=== PATIENT | male | born 1980 | race Caucasian/White ===

== ENCOUNTER 2018-09-07 20:14 | Inpatient (IN) ==
[2018-09-07 21:02] LABS: BASO# 0.05 X1000 (0.0-0.2); BASO% 0.2 % (0.0-0.8); EOS# 0.09 X1000 (0.0-0.7); EOS% 0.4 % (0.0-10.0); HEMATOCRIT 41.7 % (42.0-52.0); HEMOGLOBIN 14.1 g/dL (14.0-18.0); IMM GRAN# 0.12 X1000 (0.0-0.04); IMM GRAN% 0.6 % (0.0-0.5); LYMPH# 2.65 X1000 (1.2-3.4); LYMPH% 12.7 % (20.5-51.1); MCH 26.2 PG (27-31); MCHC 33.8 g/dL (33-37); MCV 77.5 FL (81-99); MONO# 1.42 X1000 (0.11-0.59); MONO% 6.8 % (1.7-9.3); MPV 10.5 FL (7.4-10.4); NEUT# 16.56 X1000 (1.4-6.5); NEUT% 79.3 % (42.2-75.2); PLT 568 X1000 (130-400); RBC 5.38 XMIL (4.7-6.1); RDW 12.5 % (11.5-14.5); WBC 20.89 X1000 (4.8-10.8)
[2018-09-07] MEDS ORDERED: PHENERGAN IV ONE (21:13)
[2018-09-07] MEDS ORDERED: MORPHINE IV ONE (21:13)
[2018-09-07] MEDS ORDERED: SODIUM CHLORIDE 0.9% INJ ONE (21:13)
[2018-09-07] MEDS ORDERED: ROCEPHIN 1 GM in NS 50 ML IV ONE (21:27)
[2018-09-07] MEDS ORDERED: VANCOMYCIN 1 GM/NS 1 GM/250 ML IVPB IV ONE (21:27)
[2018-09-07 21:29] LABS: AGAP 18; ALB/GLOB RATIO 1.3; ALBUMIN 5.1 g/dL (3.5-5.0); ALKALINE PHOSPHATASE 147 U/L (32-122); BUN 16 mg/dL (8-22); CALCIUM 10.2 mg/dL (8.8-10.2); CHLORIDE 88 mmol/L (98-107); COSMO 282; CREATININE 1.1 mg/dL (0.7-1.2); ESTIMATED GFR > 60; GLUCOSE 434 mg/dL (70-104); GOT 11 U/L (10-34); GPT 11 U/L (10-44); POTASSIUM 4.2 mmol/L (3.5-5.1); SODIUM 131 mmol/L (136-145); TCO2 25 mmol/L (25-35); TOTAL PROTEIN 8.9 g/dL (6.3-8.3)
[2018-09-07] MEDS ORDERED: CLINDAMYCIN 600 MG/NS 600 MG/50 ML IVPB IV ONE (21:34)
[2018-09-07] MEDS ORDERED: HUMULIN R SUBQ ONE (21:35)
[2018-09-07] MEDS: NS 1,000 ML IV ONE ×2 (21:40→23:00)
[2018-09-07 22:08] LABS: ALLEN TEST YES; BE 1.4 mmoll (-3.0-3.0); BLOOD TYPE ARTERIAL; METHB 0.6 % (0.0-1.5); MODALITY ROOM AIR; O2(CT) 17.3 mL/dL (15.0-23.0); PCO2(98.6) 34 mmHg (35-45); PO2(98.6) 74 mmHg (60-100); SAMPLE BLOOD; SAO2 99.8 % (95.0-100.0); THB 12.8 g/dL (11.5-17.4); pH(98.6) 7.47 (7.35-7.45)
[2018-09-07] MEDS ORDERED: CATAPRES PO PRN (23:19)
[2018-09-07] MEDS ORDERED: VANCOMYCIN IV PER PHARMACY MISC SCH (23:30)
[2018-09-08] MEDS ORDERED: DILAUDID IV ONE ×2 (00:37→03:15)
--- NOTE | 2018-09-08 00:52 | PROVIDER DOCUMENTATION ---
This chart was entered by Mark Castaneda Scribe, acting as scribe for Wilmer Lai MD. HPI-General Adult - General Chief Complaint: Post Op Complaint Stated Complaint: POST SURGEY BLEED Time Seen by Provider: 09/07/18 21:02 Source: patient Allergies/Adverse Reactions: Patient Allergies Allergy/AdvReac Type Severity Reaction Status Date / Time Sulfa (Sulfonamide Allergy HIVES Verified 09/07/18 20:35 Antibiotics) vancomycin AdvReac RASH Verified 09/07/18 20:35 Home Medications: Home Medication List Medication Instructions Recorded Confirmed Last Taken Type Tizanidine HCl [Zanaflex] 1 tab PO TID 08/04/16 08/11/18 06/21/18 20:00 History Clonidine [Catapres] 0.1 mg PO BID PRN 02/11/17 08/11/18 06/22/18 17:32 History Insulin Aspart [Novolog] 1 dose SQ TID 01/17/18 08/11/18 06/21/18 History Iron Carbonyl/Ascorbic Acid 1 each PO BID tablet 01/26/18 08/11/18 06/21/18 20: 00 Rx [Icar-C] Sodium Bicarbonate 650 mg PO BID #60 tablet 01/26/18 08/11/18 06/21/18 20:00 Rx Mirtazapine [Remeron] 30 mg PO HS 02/18/18 08/11/18 06/21/18 20:00 History Amlodipine [Norvasc] 5 mg PO BID tablet 06/27/18 08/11/18 Unknown Rx Bisacodyl [Dulcolax] 10 mg [place] BID supp 06/27/18 08/11/18 Unknown Rx Lorazepam [Ativan] 1 mg PO TID PRN PRN tablet 06/27/18 08/11/18 Unknown Rx Pantoprazole [Protonix] 40 mg PO DIRECTED #91 tab 06/27/18 08/11/18 Unknown Rx Sucralfate [Carafate Liquid] 1 gm PO Q6HR #120 udc 06/27/18 08/11/18 Unknown Rx CephALEXIN [Keflex] 500 mg PO Q8H #30 cap 08/18/18 Unknown Rx Hydrocodone/APAP 10 mg/325 mg 1 tab PO Q6H PRN PRN #30 tab 08/18/18 Unknown Rx [[place]-10] Insulin Glargine [Basaglar] 60 unit SUBQ BID insuln.pen 08/18/18 Unknown Rx Lisinopril 30 mg PO DAILY #0 08/18/18 08/11/18 06/22/18 08:00 Rx Polyethylene Glycol 3350 [Miralax] 17 gm PO DAILY #10 powd.pack 08/18/18 Unknown Rx - History of Present Illness -Gen Adult Nature of Presenting Problems: Pt is a 37 y/o M presents to the ED with post op bleeding from a left 2nd toe amputation done [address] Wright. Pt reports his big toe was amputated on the left foot in December 2017, Location of Pain/Injury: reports: lower extremity (left foot) Pain Radiation: reports: no radiation Quality of Pain: reports: aching Severity: reports: moderate Onset/Duration: reports: gradual Timing: reports: getting worse Context/Activities at Onset: reports: none Modifying Factors: improves with: nothing Associated Symptoms: denies: cough, diaphoresis, sinus congestion/drainage, shortness of breath Similar Symptoms Previously?: No Recently seen or treated by another doctor?: No Review of Systems - Adult - REVIEW OF SYSTEMS - ADULT Constitutional: reports: fever. denies: chills Eyes: reports: no symptoms reported Ears, Nose, Mouth & Throat: reports: no symptoms reported Cardiovascular: reports: no symptoms reported Respiratory: denies: cough, shortness of breath, wheezing Gastrointestinal: denies: abdominal pain, nausea, vomiting Genitourinary: reports: no symptoms reported Musculoskeletal: reports: bone pain (left foot). denies: back pain, neck pain Integumentary: reports: no symptoms reported Neurological: denies: dizziness/vertigo, headache/migraines Psychiatric: reports: no symptoms reported Endocrine: reports: no symptoms reported Hematologic/Lymphatic: reports: no symptoms reported Allergic/Immunologic: reports: no symptoms reported All Other Systems: Reviewed and Negative Past History - Adult - PAST MEDICAL HISTORY-ADULT Review of Records: reports: Old Records Reviewed, Nursing Assessment Review, Medications Reviewed Major Childhood Illnesses: reports: denies history Cardiovascular: reports: HTN Respiratory: reports: denies history Gastrointestinal: reports: denies history Obstetrical/Gynecological: reports: denies history Genitourinary: reports: kidney disease, other (Sofi history of) Musculoskeletal: reports: denies history Neurological: reports: denies history Endocrine/Immune: reports: Diabetes Other Conditions: reports: MRSA - PRIOR SURGERIES/PROCEDURES Surgical/Procedure History: reports: reviewed, not pertinent, other - IMMUNIZATION STATUS Childhood Immunizations: See Nurse Assessment Flu Vaccine: See Nurse Assessment - FAMILY HISTORY Family History: reviewed, not pertinent - SOCIAL HISTORY Smoking: non-smoker Living Situation: family Physical Exam-General - PHYSICAL EXAM-ADULT Initial Vital Signs Reviewed: Yes - CONSTITUTIONAL General Appearance: appears well, alert, no apparent distress - EYES Eyes: PERRL/EOMI, pink conjunctivae - HEAD, EARS, NOSE, MOUTH & THROAT HENMT: moist mucous membranes, normal ENT inspection, pharynx normal - NECK Neck: non-tender, full range of motion, supple, normal inspection - RESPIRATORY Respiratory: lungs clear, normal breath sounds, no pleuratic chest pain, no respiratory distress, no accessory muscle use - CARDIOVASCULAR Cardiovascular: normal peripheral pulses, tachycardia - GASTROINTESTINAL (ABDOMEN) Abdominal Exam: non tender, soft - MUSCULOSKELETAL Back Exam: normal inspection, no CVA tenderness, no vertebral tenderness Extremity: erythema (left foot with no streaking up the foot). negative: normal inspection (left foot tissue around amputation is red swollen pus draining) - SKIN Integumentary: normal color, normal turgor, warm/dry - NEUROLOGIC Neurologic: grossly normal, no motor/sensory deficits - PSYCHIATRIC Psych/Mental Status: normal mood/affect, normal thought content, normal thought process, oriented x 3 Progress - PLAN OF CARE/RESULTS Progress/Plan/Lab Results: Vital Signs - 8 hr 09/07/18 20:22 Temperature 99.7 F H Pulse Rate 135 H Respiratory Rate 19 O2 Sat by Pulse Oximetry 100 Laboratory Results - last 24 hr 09/07/18 20:39 WBC 20.89 H RBC 5.38 Hgb 14.1 Hct 41.7 L MCV 77.5 L MCH 26.2 L MCHC 33.8 RDW Std Deviation 12.5 Plt Count 568 H MPV 10.5 H Immature Gran % (Auto) 0.6 H Neut % (Auto) 79.3 H Lymph % (Auto) 12.7 L [place] % (Auto) 6.8 Eos % (Auto) 0.4 Baso % (Auto) 0.2 Immature Gran # (Auto) 0.12 H Neut # (Auto) 16.56 H Lymph # (Auto) 2.65 [place] # (Auto) 1.42 H Eos # (Auto) 0.09 Baso # (Auto) 0.05 Orders Category Date Time Status CBC WITH ELECTRONIC DIFF [HEME] Stat Lab 09/07/18 20:39 Completed CMP [COMPREHENSIVE METABOLIC PANEL] [CHEM] Stat Lab 09/07/18 20:39 Received A/P infected surgical site from 2nd toe amputation 3 weeks ago. Started broad coverage AB, pain control, insulin and IV fluids. Will admit for Surgical evaluation in am by Dr Reese Result Diagrams: 09/07/18 20:39 09/07/18 20:39 - CONSULTS/PCP/HOSPITALIST Notification #1 *Consult/PCP/Hospitalist*: Dr Barnes - Ortho Time Discussed: 21:30 Reason/Comments: wrong group, need general surgery #2 Consult: Dr Monsivais Time Discussed: 21:32 Reason/Comments: Review of HPI Consult Disposition: other (admit under hospitalist and he will follow and see in the morning) #3 Consult: Hospitalist- Dr Rush Time Discussed: 21:56 Reason/Comments: Admission Consult Disposition: Admit (accepts) Departure - Departure Date of Disposition Decision: 09/07/18 Time of Disposition Decision: 21:58 DIAGNOSIS: Diabetic foot infection Disposition: ADMITTED INPATIENT 09 Certified Medical Emergency: Emergent Condition: Poor - Critical Care Note This patient required my direct & personal management of CC.: No Attestation - Physician/ AMY Attestation Patient care was provided by Advanced Practice Provider:: No The physician spent face to face time with patient:: Yes Advanced Practice Provider documentation review:: Supervising physician onsite and consulted in the evaluation and care of this patient. The physician did have a face to face encounter with the patient. This chart was documented by the indicated scribe, (Mark Castaneda Scribe) and accurately reflects the services I performed and decisions made by me, Wilmer Lai MD, as attested by the provider's signature.
[2018-09-08] MEDS ORDERED: VANCOMYCIN 2,000 MG in NS 500 ML IV SCH (02:00)
[2018-09-08] MEDS ORDERED: NORCO-7.5 PO PRN (02:00)
[2018-09-08] MEDS: LOVENOX SUBQ SCH ×2 (03:00→23:44)
[2018-09-08] MEDS: ZOSYN 3.375 GM in NS 50 ML IV SCH ×2 (03:00→10:01)
[2018-09-08] MEDS: ATIVAN PO PRN (03:00)
[2018-09-08] MEDS ORDERED: ZOFRAN IV PRN (03:13)
[2018-09-08] MEDS: CUBICIN 600 MG in NS 100 ML IV SCH (04:00)
[2018-09-08 04:58] LABS: BASO# 0.04 X1000 (0.0-0.2); BASO% 0.2 % (0.0-0.8); EOS# 0.06 X1000 (0.0-0.7); EOS% 0.3 % (0.0-10.0); HEMATOCRIT 35.7 % (42.0-52.0); HEMOGLOBIN 12.3 g/dL (14.0-18.0); IMM GRAN# 0.06 X1000 (0.0-0.04); IMM GRAN% 0.3 % (0.0-0.5); LYMPH# 2.13 X1000 (1.2-3.4); LYMPH% 11.8 % (20.5-51.1); MCH 27.2 PG (27-31); MCHC 34.5 g/dL (33-37); MONO% 8.3 % (1.7-9.3); MPV 10.3 FL (7.4-10.4); NEUT# 14.19 X1000 (1.4-6.5); NEUT% 79.1 % (42.2-75.2); PLT 407 X1000 (130-400); RBC 4.52 XMIL (4.7-6.1); RDW 12.5 % (11.5-14.5); WBC 17.98 X1000 (4.8-10.8)
[2018-09-08] MEDS: NS 1,000 ML IV SCH ×4 (05:00→23:44)
[2018-09-08 05:01] LABS: INR 0.95; PROTIME 13.5 Seconds (11.0-16.0)
[2018-09-08 05:11] LABS: AGAP 13; ALB/GLOB RATIO 1.3; ALBUMIN 4.3 g/dL (3.5-5.0); ALKALINE PHOSPHATASE 108 U/L (32-122); BUN 16 mg/dL (8-22); CALCIUM 9.4 mg/dL (8.8-10.2); CHLORIDE 97 mmol/L (98-107); COSMO 280; CREATININE 0.9 mg/dL (0.7-1.2); ESTIMATED GFR > 60; GLUCOSE 251 mg/dL (70-104); GOT 9 U/L (10-34); GPT 9 U/L (10-44); POTASSIUM 3.9 mmol/L (3.5-5.1); SODIUM 135 mmol/L (136-145); TCO2 25 mmol/L (25-35); TOTAL BILIRUBIN 0.49 mg/dL (0.20-1.00); TOTAL PROTEIN 7.7 g/dL (6.3-8.3)
[2018-09-08 05:13] LABS: HEMOGLOBIN A1C 10.4 % (4.8-6.0)
[2018-09-08] MEDS ORDERED: OFIRMEV 1000 MG/ISOTONIC SOLN 1,000 MG/100 ML BOTTLE IV ONE (05:39)
[2018-09-08] MEDS ORDERED: HUMULIN R SUBQ SCH (07:00)
--- NOTE | 2018-09-08 08:00 | HISTORY AND PHYSICAL ---
PRIMARY CARE PHYSICIAN: Dr. Cj Anaya. HISTORY OF PRESENTING COMPLAINT: Pain to left foot and bleeding. HISTORY OF PRESENTING COMPLAINT: Mr. Castillo is a 37-year-old male with extensive history of uncontrolled diabetes mellitus, has had multiple admissions to the hospital because of diabetes- related acute complications. He was last discharged from this hospital on 08/18 after 7 days hospitalization. On that occasion he did have surgery to his left foot, transmetatarsal amputation of the first toe and the distal ray amputation of the left second toe was done by Dr. Wright because of osteomyelitis. Postoperatively, he seems to be doing fine, but he was home today. He said he has been feeling chilly and low-grade fever and since this afternoon he has been bleeding from the site, so he called the office of the surgeon and he was advised to come to the emergency department where he was evaluated and we were consulted for admission and for management. PAST MEDICAL HISTORY: 1. Diabetes mellitus. 2. Nicotine dependence. 3. Perceived medical noncompliance. 4. Methicillin-resistant Staphylococcus aureus (MRSA) before. 5. HTN Home Meds: Reviewed PAST SURGICAL HISTORY: Multiple amputations to the left foot. The last was amputation of the first and second toes on 08/13/2018. ALLERGIES: Sulfa. FAMILY HISTORY: Both grandparents were positive for coronary artery disease. Father in 2016 related to sepsis. SOCIAL HISTORY: The patient used to be a smoker and drinker, but he said he stopped all these about 20 years ago. REVIEW OF SYSTEM: A 14-point review of system conducted with Mr. Castillo is unremarkable except what we have in the HPI. PHYSICAL EXAMINATION: VITAL SIGNS: Blood pressure is currently not charted. Pulse is 135, respiration is 19. Patient is saturating 100%, temperature is 99.7 degrees. GENERAL: Mr. Castillo is a 37-year-old gentleman. He is in bed. He is not in any cardiopulmonary distress. HEENT: Mucosa is pink and moist. Anicteric. Acyanotic. NECK: Neck is supple. CHEST: Good air entry bilateral. There was no crepitations, no rhonchi. CARDIOVASCULAR: Regular rate and rhythm. No murmurs, no rubs, no gallops. GI: Abdomen is soft, is nontender. Bowel sounds are present. There is no hepatosplenomegaly. EMBLEM CUTTER: Patient is awake, alert, oriented. Executive functions are intact. Motor 5/5 in all extremities. No sensation deficit. Cranial nerves 2-12 have been grossly examined and they are unremarkable. MUSCULOSKELETAL: The right lower extremity is erythematous distally. It is warm to touch and very tender. There are sutures in place for the recent amputation surgeries. There is blood everywhere. LABORATORY DATA: WBC is 20.87, hemoglobin is 14.1, platelet count of 568,000. Chemistry is also reviewed. Sodium is 131, potassium is 4.8, chloride is 85, bicarbonate is 25, gap is 18, glucose is 438. ASSESSMENT: Mr. Castillo is a 37-year-old gentleman who had a transmetatarsal amputation of the first toe and a distal ray amputation of the second toe done by Dr. Wright on 08/13/2018, uncontrolled diabetes and medical noncompliance. He came into the emergency department because of sepsis syndrome with possible infection to the left foot. 1. Sepsis secondary to skin and soft tissue infection of the left lower extremity. There could be underlying bone infection as well. Patient recently treated for osteomyelitis 2. Left diabetic foot cultures have been done and we will start the patient on broad-spectrum antibiotics. The patient has had history of MRSA infections to that toe, so we will cover him with an MRSA drug. 3. Severe uncontrolled diabetes mellitus. We will continue sliding scale and other insulin regimen. 4. Hyponatremia likely due to the hyperglycemia. Hopefully that will auto correct once the glucose improves. So, in general, we are going to admit Mr. Castillo in medical floor, adequately hydrate him, start him on broad-spectrum antibiotics, control his glucose, and consult Dr. Wright tomorrow to evaluate the foot. cc: Clint Rush MD [facility]
--- NOTE | 2018-09-08 08:24 | GENERAL SURGERY CONSULTATION ---
DATE: 09/08/2018 REQUESTING PHYSICIAN: Dr. Rush. REASON FOR CONSULTATION: Foot infection. HISTORY OF PRESENT ILLNESS: A 37-year-old male, well known to me with poorly-controlled diabetes, who I had previously, almost 3 weeks ago, done further amputations of his toes. He failed to follow up with me in the office on one appointment last week, but now is presenting with fevers and pain and drainage from his wound. He has had persistent pain in his foot for some time. He came in and was found to be tachycardic with a temperature of 102.7, concerning for sepsis. He had some drainage coming from his left foot from the amputation site. He still has the sutures in place. Again, he was supposed to see me the beginning of this week to have the sutures removed. He is being admitted by the Hospitalist for sepsis. PAST MEDICAL HISTORY: Includes: 1. Previous left foot cellulitis. 2. Uncontrolled diabetes. 3. Hypertension. 4. History of sepsis. 5. Nicotine dependence. 6. Poor medical compliance. PAST SURGICAL HISTORY: Includes previous toe amputations and abdominal wound debridement. SOCIAL HISTORY: Drinks socially. FAMILY HISTORY: Positive for coronary artery disease. ALLERGIES: Sulfa and vancomycin. MEDICATIONS: MAR reviewed. REVIEW OF SYSTEMS: A full 10-point review of systems was obtained and negative, except as specified in HPI. PHYSICAL EXAMINATION: Vital Signs: The patient's current temperature is 102.7 degrees, pulse 118, blood pressure 147/87. General: male, looks stated age. HEENT: Normocephalic, atraumatic. Pupils equal, round, and reactive to light. Mucous membranes moist. Oropharynx benign. Neck: Supple. Trachea midline. Cardiovascular: Regular rate and rhythm. Lungs: Grossly clear. Abdomen: Soft, nontender, nondistended. Extremities: Left foot, there is some cellulitis on both the plantar aspect and the dorsal aspect of the foot. He still has the sutures intact. There is some drainage that I can express. It looks more serous to me, but there is some cloudiness with it. It is tender to palpation. I do not feel any crepitus. Vascular: All extremities are perfused. Neurologic: Grossly intact. Skin: Wound as noted above. LABORATORY DATA: White blood cell count this morning 17, hematocrit 35, platelet count 407,000. Glucose this morning 251, it was 434. A1c is 10.4. ASSESSMENT AND PLAN: A 37-year-old with poorly-controlled diabetes, now with a wound to his amputation site. Wound to his amputation site. At this time, there is a good chance this could be causing his sepsis-like picture. He has been started on antibiotics, and I had a discussion with the patient that he may require transmetatarsal amputation given the extent of the cellulitis. He wants to try to hold off on that for right now, and will try aggressive antibiotic therapy. If it does not improve, the patient may need transmetatarsal amputation with a wound VAC. This was discussed with the patient. Will continue to follow with you. cc: Claudio Wright MD
[2018-09-08] MEDS ORDERED: BASAGLAR SUBQ SCH (09:00)
[2018-09-08] MEDS ORDERED: DILAUDID IV PRN (09:55)
[2018-09-08] MEDS: MIRALAX PO SCH (10:02)
[2018-09-08] MEDS: NORVASC PO SCH ×2 (10:02→20:03)
[2018-09-08] MEDS: DULCOLAX PR SCH ×2 (10:02→20:05)
[2018-09-08] MEDS: PRINIVIL PO SCH (10:02)
[2018-09-08] MEDS: PROTONIX PO SCH (10:02)
[2018-09-08] MEDS: ICAR-C PO SCH ×2 (10:02→20:03)
[2018-09-08] MEDS: SODIUM BICARBONATE PO SCH ×2 (10:03→20:03)
--- NOTE | 2018-09-08 11:32 | Diag Imaging Result Doc PS360 ---
EXAM: FOOT 2 VIEWS LEFT 09/08/2018 HISTORY: osteomyelitis TECHNIQUE: Left foot two views COMMENT: Since the previous study of 01/18/2018 there has been amputation of the great toe at the level of the mid first metatarsal and the second toe at the base of the proximal phalanx. There is no definite evidence of erosion or periosteal reactions is chest osteomyelitis. There are some bony fragments present around the medial forefoot which are probably the remnants of sesamoid bones from the first metatarsal. There is soft tissue swelling. There are vascular calcifications. IMPRESSION: No definite evidence of active osteomyelitis. Electronically signed by Alexx Chapman 09/08/2018 11:30 AM
[2018-09-08] MEDS: BASAGLAR SUBQ SCH ×2 (11:57→20:04)
[2018-09-08] MEDS ORDERED: TYLENOL PO PRN (12:00)
[2018-09-08] MEDS: MAXIPIME 2 GM in NS 100 ML IV SCH ×2 (12:06→23:44)
[2018-09-08] MEDS: OFIRMEV 1000 MG/ISOTONIC SOLN 1,000 MG/100 ML BOTTLE IV SCH ×3 (13:33→23:44)
[2018-09-08] MEDS: DILAUDID IV PRN ×4 (13:35→23:45)
[2018-09-08] MEDS: SODIUM CHLORIDE 0.9% INJ PRN (13:35)
[2018-09-08] MEDS: PHENERGAN IV PRN ×2 (13:35→20:02)
[2018-09-08] MEDS: HUMALOG SUBQ SCH ×2 (17:34→20:05)
--- NOTE | 2018-09-08 20:56 | INFECTIOUS DISEASE PROGRESS NO ---
DATE: 09/08/2018 PRESENT ILLNESS: The patient has an infection of his left foot. MEDICATIONS: The patient was on Keflex at home. PHYSICAL EXAMINATION: Vital Signs: Temperature is 102.2 degrees, pulse 64, respirations 14, blood pressure 140/70. General: This is a somewhat ill-appearing, young male. He is in no acute distress. Head, eyes, ears, nose, and throat: He can hear my spoken words and see near objects. He does not have any white coating on his tongue. Neck: No stiffness. Lungs: Clear to auscultation. Cardiovascular: Regular heart rate. Abdomen: Soft and nontender. Extremities: The patient's left foot was erythematous, swollen, and had a serous drainage coming from it. Neurologic: The patient is awake. He can move his extremities. There is no tremor. LABORATORY AND X-RAY: CBC shows a white count of 17,980, hemoglobin 12.3, and platelet count 407,000. Creatinine 0.9. GFR is greater than 60. Liver function studies are normal. Blood and left foot cultures are pending. ASSESSMENT AND PLAN: The patient has an infected left foot. I agree with treating the patient with daptomycin. I have substituted cefepime for Zosyn. Also, I have ordered an x-ray of the patient's left foot. COMORBIDITIES: His main one is diabetes mellitus. He does not control his diabetes well at all. cc: Richard Mirza MD
[2018-09-08 21:11] LABS: URINE SOURCE CLEAN CATCH
[2018-09-08 21:13] LABS: BILIRUBIN URINE NEGATIVE (NEGATIVE); BLOOD URINE NEGATIVE (NEGATIVE); CLARITY CLEAR (CLEAR); COLOR YELLOW; GLUCOSE URINE >=1000 mg/dL (NEGATIVE); KETONE URINE NEGATIVE (NEGATIVE); LEUKOCYTES URINE NEGATIVE (NEGATIVE); NITRITE URINE NEGATIVE (NEGATIVE); PROTEIN URINE NEGATIVE (NEGATIVE); UROBILINOGEN URINE 0.2 EU/dL (0.2-1.0)
[2018-09-08 21:21] LABS: URINE BACTERIA NEGATIVE /HFP; URINE CAST NONE SEEN /LPF; URINE CRYSTAL NONE SEEN /HPF; URINE EPITHELIAL CELLS <10 /HPF (<10); URINE RBC <10 /HPF (<10); URINE WBC <10 /HPF (<10); URINE YEAST NONE SEEN /HPF
[2018-09-09] MEDS: REMERON PO SCH ×2 (00:03→20:20)
--- NOTE | 2018-09-09 00:24 | PROGRESS NOTE ---
DATE: 09/08/2018 SUBJECTIVE: The patient reports he is still hurting in the left foot. The patient has requested to increase the doses of pain medication while he is here. OBJECTIVE: Vital Signs: Temperature 99.8 degrees, heart rate 111, respiratory rate 18, blood pressure 128/71, O2 saturation 97% on room air. General Examination: This is a 37-year-old male lying in bed, in no acute distress. HEENT: Head is normocephalic and atraumatic. Neck: No JVD noted. No carotid bruits. No lymphadenopathy. Cardiovascular: S1, S2 heard. No murmurs, gallops, or rubs. Regular rate and rhythm. Respiratory: Clear bilaterally to auscultation. No work of breathing or using accessory muscles. Abdomen: Soft, nontender to palpation. Bowel sounds present. No organomegaly. Extremities: Right lower extremity is erythematous distally, warm to touch, and painful to palpation. There are sutures in place from recent amputation surgeries. Neurological: The patient is alert and oriented x3. Moves 4 extremities. LABORATORY DATA: White cell count 17.98, hemoglobin 12.3, hematocrit 35.7, platelets 407,000. BMP shows glucose 251 with sodium 135. ASSESSMENT AND PLAN: 1. Sepsis secondary to skin and soft tissue infection to the left lower extremity. At this point, the patient has been evaluated by Dr. Wright and thinks that he needs to have a transmetatarsal amputation in order to resolve this infection. The patient is somewhat adamant to proceed with surgery now, so he prefers to wait a few days to see if antibiotics can help. As per patient, Dr. Wright is tentatively planning to do surgery on Wednesday. We will see how this patient does. Currently, he is on daptomycin and cefepime. Dr. Mirza from Infectious Disease has been consulted. We will follow recommendations. 2. Uncontrolled diabetes mellitus type 2. I think this chronic infection is playing an important role in the diabetes control. The hemoglobin A1c is very high at 10.5. At this point, we have increased the dose of Lantus and will see how this patient does. 3. Hyponatremia secondary to severe hyperglycemia, now is getting better. We will continue to monitor BMP. DISPOSITION: We will continue to monitor this patient closely. We will continue with IV antibiotics. We appreciate input from ID and General Surgery. cc: Braydon Fu MD
[2018-09-09] MEDS: CUBICIN 600 MG in NS 100 ML IV SCH (02:49)
[2018-09-09] MEDS: DILAUDID IV PRN ×7 (02:50→23:47)
[2018-09-09] MEDS: LOVENOX SUBQ SCH (05:17)
[2018-09-09] MEDS: PHENERGAN IV PRN ×3 (06:00→20:15)
[2018-09-09] MEDS: OFIRMEV 1000 MG/ISOTONIC SOLN 1,000 MG/100 ML BOTTLE IV SCH ×2 (06:02→12:28)
[2018-09-09 06:56] LABS: BASO# 0.04 X1000 (0.0-0.2); BASO% 0.4 % (0.0-0.8); EOS# 0.33 X1000 (0.0-0.7); HEMATOCRIT 31.2 % (42.0-52.0); HEMOGLOBIN 10.4 g/dL (14.0-18.0); IMM GRAN# 0.05 X1000 (0.0-0.04); IMM GRAN% 0.4 % (0.0-0.5); LYMPH# 2.37 X1000 (1.2-3.4); LYMPH% 21.3 % (20.5-51.1); MCH 26.9 PG (27-31); MCHC 33.3 g/dL (33-37); MCV 80.8 FL (81-99); MONO# 1.12 X1000 (0.11-0.59); MONO% 10.1 % (1.7-9.3); MPV 10.1 FL (7.4-10.4); NEUT# 7.22 X1000 (1.4-6.5); NEUT% 64.8 % (42.2-75.2); PLT 337 X1000 (130-400); RBC 3.86 XMIL (4.7-6.1); RDW 12.4 % (11.5-14.5); WBC 11.13 X1000 (4.8-10.8)
[2018-09-09 07:16] LABS: AGAP 13; BUN 14 mg/dL (8-22); CALCIUM 8.8 mg/dL (8.8-10.2); CHLORIDE 98 mmol/L (98-107); COSMO 271; CREATININE 0.8 mg/dL (0.7-1.2); ESTIMATED GFR > 60; GLUCOSE 102 mg/dL (70-104); POTASSIUM 3.4 mmol/L (3.5-5.1); SODIUM 135 mmol/L (136-145); TCO2 24 mmol/L (25-35)
[2018-09-09] MEDS ORDERED: INSULIN PEN NEEDLES ONE (07:45)
[2018-09-09] MEDS: HUMALOG SUBQ SCH ×4 (08:00→21:30)
[2018-09-09] MEDS: PRINIVIL PO SCH (08:54)
[2018-09-09] MEDS: ICAR-C PO SCH ×2 (08:54→20:13)
[2018-09-09] MEDS: MIRALAX PO SCH (08:55)
[2018-09-09] MEDS: NORVASC PO SCH ×2 (08:55→20:15)
[2018-09-09] MEDS: PROTONIX PO SCH (08:55)
[2018-09-09] MEDS: SODIUM BICARBONATE PO SCH ×2 (08:55→20:17)
[2018-09-09] MEDS: DULCOLAX PR SCH ×2 (09:00→20:14)
[2018-09-09] MEDS: BASAGLAR SUBQ SCH ×2 (09:06→22:51)
--- NOTE | 2018-09-09 09:43 | GENERAL SURGERY PROGRESS NOTE ---
DATE: 09/09/2018 SUBJECTIVE: The patient seems to be doing okay. OBJECTIVE: Vital Signs: The patient is currently with temperature 99.1 degrees, pulse 96, blood pressure 122/76. General: No acute distress. Cardiovascular: Regular rate and rhythm. Lungs: Grossly clear. Abdomen: Soft, nontender, nondistended. Extremities: Amputation site to the left lower extremity appears to be about the same. There is some cellulitis of the plantar and dorsal aspect. No active drainage, but there is some bogginess. LABORATORY DATA: None this morning as of yet. DIAGNOSTIC STUDIES: X-ray from yesterday did not show osteomyelitis. ASSESSMENT AND PLAN: A 37-year-old with infection at previous amputation sites. At this time, we will continue aggressive intravenous antibiotics. The patient wants to hold off on any kind of surgical intervention. If no improvement, may need to consider a transmetatarsal amputation, but at this point, will continue with patient's wishes and continue intravenous antibiotics. Dr. Null will follow while I am gone this weekend. cc: Claudio Wright MD
--- NOTE | 2018-09-09 10:20 | INFECTIOUS DISEASE PROGRESS NO ---
DATE: 09/09/2018 PRESENT ILLNESS: The patient has infection of his left foot. MEDICATIONS: The patient is in day 1 of his treatment of the left foot infection with daptomycin and cefepime. PHYSICAL EXAMINATION: Vital Signs: Temperature is 98.3 degrees. Pulse 95. Respirations 20. Blood pressure is 107/59. General: This is an obese, somewhat ill-appearing, young male. He is in no acute distress. Head/Eyes/Ears/Nose/Throat: He can hear my spoken words and see near objects. He does not have any white coating on his tongue. Neck: No meningismus. Lungs: Clear to auscultation. Cardiovascular: Regular heart rate. Abdomen: Soft and nontender. Extremities: The patient's left foot has a large dressing around it. The dressing is intact. Neurologic: The patient is alert. He can move his extremities. There is no tremor. LABORATORY AND X-RAY DATA: X-ray of the left foot showed no evidence of osteomyelitis. A culture from the foot is growing a gram-positive coccus and a gram-negative sharonda. Creatinine is 0.8. GFR is greater than 60. CBC shows a white count of 11,130, hemoglobin 10.4, and platelet count 337,000. ASSESSMENT AND PLAN: The patient has an infected left foot. I have ordered an MRI of the left foot to see if there is an osteomyelitis that did not appear on the plain x-ray of the foot. My plan is to continue with daptomycin and cefepime, pending further results. COMORBIDITIES: The patient is a diabetic and he does not control his diabetes well. cc: Richard Mirza MD
[2018-09-09] MEDS: MAXIPIME 2 GM in NS 100 ML IV SCH ×2 (12:28→22:52)
[2018-09-09] MEDS: SODIUM CHLORIDE 0.9% INJ PRN ×2 (12:29→20:16)
--- NOTE | 2018-09-09 14:46 | Diag Imaging Result Doc PS360 ---
EXAM: MRI LOW EXT JT W/WO CON-LEFT INDICATION: L foot osteomyelitis TECHNIQUE: COMPARISON: 08/11/2018 FINDINGS: During the interval, there has been amputation of the second toe at the MTP joint and there has been resection of a majority of the first metatarsal with the proximal shaft. Before this, there had already been prior amputation of the great toe. Postcontrast T1 images reveal a fluid collection at the stump of the first metatarsal with a thin tract that extends to the surface of the skin suggesting abscess or phlegmon. Please correlate clinically. There is mild marrow edema at the stump of the first metatarsal that may be postsurgical. However, there is also mild focal marrow edema at the head of the second metatarsal. This probably represents osteomyelitis. The remaining osseous marrow signal is essentially unremarkable. IMPRESSION: 1.Osteomyelitis involving the head of the second metatarsal. 2.Mild marrow edema involving the stump of the resected first metatarsal. This may be postsurgical. A component of osteomyelitis here is also possible, however. 3.Fluid collection at the surgical bed near the distal stump of the first metatarsal with a thin tract extending to the skin surface that is worrisome for inflammatory phlegmon or abscess. Electronically signed by Louis Barrientos 09/09/2018 2:43 PM
--- NOTE | 2018-09-09 14:53 | PROGRESS NOTE ---
DATE: 09/09/2018 SUBJECTIVE: The patient reports still hurting in the left foot even though we have increased the dose of Dilaudid. Denies any other complaints. OBJECTIVE: Vital Signs: Temperature 98.8 degrees, heart rate 107, respiratory rate 20, blood pressure 129/74, O2 saturation 100% on room air. General: This is a 37-year-old male, lying in bed, in no acute distress. HEENT: Head is normocephalic, atraumatic. Cardiovascular: S1, S2 heard. No murmurs, gallops, or rubs. Regular rate and rhythm. Respiratory: Clear bilaterally to auscultation. No work of breathing or using accessory muscles. Abdomen: Soft, nontender to palpation. Bowel sounds present. No organomegaly. Extremities: Right extremity covered by dressing. Neurological: Patient alert and oriented x3. Moves 4 extremities. LABORATORY DATA: White cell count is 11.13, hemoglobin 10.4, hematocrit 31.2, platelets 337. Blood sugar is 102 with 3.4 potassium. ASSESSMENT AND PLAN: 1. Sepsis secondary to skin and soft tissue infection of the left lower foot. Dr. Wright from General Surgery and Dr. Mirza from Infectious Disease are following this patient as well. Dr. Mirza has decided to do an MRI of the left lower extremity to rule out any osteomyelitis. We will see what that exam shows and we will go from there. In the meantime, we will continue with antibiotics. In this case, he is on daptomycin and cefepime. We will follow recommendations. 2. Uncontrolled diabetes mellitus type 2. I think this chronic infection continues to play an important role in diabetes control. Will continue with the same doses of Lantus. We have increased the dose of Lantus yesterday. We will continue to monitor BMP. 3. Hyponatremia secondary to severe hyperglycemia that is normal. We will continue to monitor. cc: Braydon Fu MD
[2018-09-10] MEDS: OFIRMEV 1000 MG/ISOTONIC SOLN 1,000 MG/100 ML BOTTLE IV SCH ×6 (00:16→23:55)
[2018-09-10] MEDS: ATIVAN PO PRN ×2 (01:39→06:02)
[2018-09-10] MEDS: PHENERGAN IV PRN ×3 (03:14→16:57)
[2018-09-10] MEDS: SODIUM CHLORIDE 0.9% INJ PRN ×2 (03:14→16:57)
[2018-09-10] MEDS: DILAUDID IV PRN ×6 (03:27→20:59)
[2018-09-10] MEDS: CUBICIN 600 MG in NS 100 ML IV SCH (03:27)
[2018-09-10 06:05] LABS: BASO# 0.04 X1000 (0.0-0.2); BASO% 0.4 % (0.0-0.8); EOS# 0.39 X1000 (0.0-0.7); EOS% 3.9 % (0.0-10.0); HEMATOCRIT 37.3 % (42.0-52.0); HEMOGLOBIN 12.6 g/dL (14.0-18.0); IMM GRAN# 0.05 X1000 (0.0-0.04); IMM GRAN% 0.5 % (0.0-0.5); LYMPH# 3.25 X1000 (1.2-3.4); LYMPH% 32.7 % (20.5-51.1); MCH 27.2 PG (27-31); MCHC 33.8 g/dL (33-37); MCV 80.4 FL (81-99); MONO# 1.08 X1000 (0.11-0.59); MONO% 10.9 % (1.7-9.3); NEUT# 5.12 X1000 (1.4-6.5); NEUT% 51.6 % (42.2-75.2); PLT 131 X1000 (130-400); RBC 4.64 XMIL (4.7-6.1); RDW 12.7 % (11.5-14.5); WBC 9.93 X1000 (4.8-10.8)
[2018-09-10 06:46] LABS: AGAP 17; BUN 11 mg/dL (8-22); CALCIUM 9.2 mg/dL (8.8-10.2); CHLORIDE 100 mmol/L (98-107); COSMO 272; CREATININE 0.8 mg/dL (0.7-1.2); ESTIMATED GFR > 60; GLUCOSE 74 mg/dL (70-104); SODIUM 137 mmol/L (136-145); TCO2 20 mmol/L (25-35)
[2018-09-10] MEDS: HUMALOG SUBQ SCH ×4 (06:55→21:02)
[2018-09-10] MEDS: LOVENOX SUBQ SCH (06:56)
[2018-09-10] MEDS: NORVASC PO SCH ×2 (08:56→21:00)
[2018-09-10] MEDS: PRINIVIL PO SCH (08:56)
[2018-09-10] MEDS: ICAR-C PO SCH ×2 (08:57→21:00)
[2018-09-10] MEDS: MIRALAX PO SCH (08:57)
[2018-09-10] MEDS: BASAGLAR SUBQ SCH ×2 (08:57→21:01)
[2018-09-10] MEDS: SODIUM BICARBONATE PO SCH ×2 (08:57→21:01)
[2018-09-10] MEDS: PROTONIX PO SCH (09:00)
[2018-09-10] MEDS: MAXIPIME 2 GM in NS 100 ML IV SCH ×2 (11:43→23:51)
[2018-09-10] MEDS: DULCOLAX PR SCH ×2 (12:57→21:03)
--- NOTE | 2018-09-10 16:45 | PROGRESS NOTE ---
DATE: 09/10/2018 SUBJECTIVE: Patient reports still hurting in the left foot, denies no other complaints. OBJECTIVE: Vital Signs: Temperature 98.2 degrees, heart rate 91, respiratory 20, blood pressure 110/70, O2 saturation 91% on room air. General: This is a 37-year-old male lying in bed in no acute distress. Cardiovascular: S1, S2 heard. No murmurs, gallops, or rubs. Regular rate and rhythm. Respiratory: Clear bilaterally to auscultation. No work of breathing or using accessory muscle . Abdomen: Soft, nontender palpation, bowel sounds present no organomegaly. Extremities: Right extremity covered with dressing with some serosanguineous secretion. Neurological: Patient alert, oriented x3, move 4 extremities. LABORATORY DATA: White cell count is 9.93, hemoglobin 12.6, hematocrit 37.3, platelets 131,000 with normal BMP, blood sugars yesterday and today has been 127. ASSESSMENT/PLAN: 1. Sepsis secondary to skin and soft tissue infection of the left lower extremity, clinically patient reports feeling the same hurting the same but his white cell count is finally back to normal. Dr. Wright from General Surgery and also Dr. Mirza are following this patient. At this time an MRI of the left lower extremity has been done which basically showed osteomyelitis of the 2nd metatarsal, at this point I think the approach for the problem of this patient will be surgical, I will wait for Dr. Wright on Wednesday to see what he is planning. In any case patient is receiving daptomycin and cefepime as per Dr. Mirza recommendation, will continue with same management. 2. Uncontrolled diabetes mellitus type 2. After we have increased the doses of Lantus too twice daily the doses actually is 70 units twice daily patient blood sugars are better controlled. Will continue with same management. 3. Hyponatremia secondary to severe hyperglycemia resolved. 4. Disposition. At this point we are planning to keep this patient over the weekend and on Wednesday that is holiday with the same antibiotic therapy and on Wednesday will talk with Dr. Wright to see if surgical approach is warranted or not. cc: Braydon Fu MD
[2018-09-10] MEDS: REMERON PO SCH (21:00)
[2018-09-11] MEDS: ATIVAN PO PRN (00:01)
[2018-09-11] MEDS ORDERED: NS 500 ML IV ONE ×2 (00:35→20:15)
[2018-09-11] MEDS: DILAUDID IV PRN ×8 (00:58→23:44)
[2018-09-11] MEDS: OFIRMEV 1000 MG/ISOTONIC SOLN 1,000 MG/100 ML BOTTLE IV SCH ×4 (01:06→17:36)
[2018-09-11] MEDS ORDERED: NS 500 ML ONE (01:12)
[2018-09-11] MEDS: CUBICIN 600 MG in NS 100 ML IV SCH (03:27)
[2018-09-11] MEDS: PHENERGAN IV PRN ×2 (04:37→14:24)
[2018-09-11] MEDS: LOVENOX SUBQ SCH (06:25)
[2018-09-11] MEDS: HUMALOG SUBQ SCH ×4 (06:30→20:29)
[2018-09-11 07:21] LABS: AGAP 12; BUN 10 mg/dL (8-22); CALCIUM 9.1 mg/dL (8.8-10.2); CHLORIDE 101 mmol/L (98-107); COSMO 276; CREATININE 0.7 mg/dL (0.7-1.2); ESTIMATED GFR > 60; GLUCOSE 94 mg/dL (70-104); POTASSIUM 3.7 mmol/L (3.5-5.1); SODIUM 139 mmol/L (136-145); TCO2 26 mmol/L (25-35)
[2018-09-11 07:37] LABS: BASO# 0.04 X1000 (0.0-0.2); BASO% 0.6 % (0.0-0.8); EOS# 0.35 X1000 (0.0-0.7); EOS% 4.8 % (0.0-10.0); HEMATOCRIT 32.5 % (42.0-52.0); HEMOGLOBIN 10.8 g/dL (14.0-18.0); IMM GRAN# 0.02 X1000 (0.0-0.04); IMM GRAN% 0.3 % (0.0-0.5); LYMPH# 2.22 X1000 (1.2-3.4); LYMPH% 30.6 % (20.5-51.1); MCHC 33.2 g/dL (33-37); MCV 81.3 FL (81-99); MONO# 0.67 X1000 (0.11-0.59); MONO% 9.2 % (1.7-9.3); MPV 9.9 FL (7.4-10.4); NEUT# 3.96 X1000 (1.4-6.5); NEUT% 54.5 % (42.2-75.2); PLT 423 X1000 (130-400); RDW 12.5 % (11.5-14.5); WBC 7.26 X1000 (4.8-10.8)
[2018-09-11] MEDS: NORVASC PO SCH ×2 (08:10→20:27)
[2018-09-11] MEDS: SODIUM BICARBONATE PO SCH ×2 (08:10→20:27)
[2018-09-11] MEDS: PRINIVIL PO SCH (08:10)
[2018-09-11] MEDS: ICAR-C PO SCH ×2 (08:10→20:26)
[2018-09-11] MEDS: PROTONIX PO SCH (08:10)
[2018-09-11] MEDS: MIRALAX PO SCH (08:13)
[2018-09-11] MEDS: BASAGLAR SUBQ SCH ×2 (08:14→20:39)
[2018-09-11] MEDS: DULCOLAX PR SCH ×2 (09:00→20:30)
--- NOTE | 2018-09-11 10:32 | PROGRESS NOTE ---
DATE: 09/11/2018 SUBJECTIVE: Mr. Miguel A Castillo is a 37-year-old, white male with a left diabetic foot, receiving IV antibiotic and dressing changes. White blood cell count is normal. Hematocrit is 32%. IV antibiotics continue. OBJECTIVE: Vital signs: Heart rate is 90, blood pressure 135/78, afebrile, O2 saturation 99%. Left foot: Has been dressed. cc: Silva Null MD
[2018-09-11] MEDS: MAXIPIME 2 GM in NS 100 ML IV SCH ×2 (11:12→23:35)
[2018-09-11] MEDS ORDERED: ATIVAN PO PRN (12:47)
--- NOTE | 2018-09-11 13:06 | PROGRESS NOTE ---
DATE: 09/11/2018 SUBJECTIVE: The patient reports not being able to sleep. That has been going on since admission. OBJECTIVE: Vital Signs: Temperature 98.9 degrees, heart rate 90, respiratory rate 18, blood pressure 135/78, O2 saturation 99% on room air. General Examination: This is a 37-year-old male, lying in bed, in no acute distress. HEENT: Head is normocephalic, atraumatic. Cardiovascular: S1, S2 heard. No murmurs, gallops, or rubs. Regular rate and rhythm. Respiratory: Clear bilaterally to auscultation. No work of breathing or using accessory muscles. Abdomen: Soft. Nontender to palpation. Bowel sounds present. No organomegaly. Extremities: No clubbing, cyanosis, or edema. Peripheral pulses present in both legs. Neurological: Patient is alert and oriented x3. Moves 4 extremities. LABORATORY DATA: White cell count 7.26, hemoglobin 10.8, hematocrit 32.5, platelets 423,000. Normal BMP with blood sugar of 164. ASSESSMENT AND PLAN: 1. Sepsis secondary to skin and soft tissue infection of the left lower extremity. Clinically, this patient is still complaining of pain in that extremity. No fever or chills. White cell count is back to normal. So, at this point we will continue with IV antibiotics. Dr. Wright will be back tomorrow and will decide about surgery or not. Dr. Mirza has ordered an MRI of the left lower extremity which confirmed osteomyelitis of the 2nd metatarsal, so we will see what both specialists have to say. At this point, we will continue with same management. 2. Uncontrolled diabetes mellitus type 2. After we have increased the dose of Lantus which is 70 units twice daily, the patient continues to improve. We will continue with the same dose of medication. 3. Hyponatremia secondary to severe hyperglycemia. Resolved. 4. Disposition. At this point, we will continue with same management. We will see Wednesday what Dr. Wright has to say regarding this infection. cc: Braydon Fu MD
[2018-09-11] MEDS ORDERED: ZANAFLEX PO PRN (13:07)
[2018-09-11] MEDS: SODIUM CHLORIDE 0.9% INJ PRN (14:24)
[2018-09-11] MEDS: REMERON PO SCH (20:27)
[2018-09-11] MEDS ORDERED: INSULIN PEN NEEDLES ONE (23:09)
[2018-09-12] MEDS: AMBIEN PO SCH ×2 (00:58→22:20)
[2018-09-12] MEDS: OFIRMEV 1000 MG/ISOTONIC SOLN 1,000 MG/100 ML BOTTLE IV SCH ×4 (00:58→17:27)
[2018-09-12] MEDS: SODIUM CHLORIDE 0.9% INJ PRN (02:55)
[2018-09-12] MEDS: PHENERGAN IV PRN ×2 (02:55→17:28)
[2018-09-12] MEDS: CUBICIN 600 MG in NS 100 ML IV SCH (02:55)
[2018-09-12] MEDS: DILAUDID IV PRN ×4 (02:56→21:09)
--- NOTE | 2018-09-12 06:09 | GENERAL SURGERY PROGRESS NOTE ---
DATE: 09/12/2018 SUBJECTIVE: Patient seems to be doing okay. Reviewed MRI and notes from the weekend. There is concern of osteomyelitis of the 2nd metatarsal head and may be a draining abscess. OBJECTIVE: Vital Signs: Patient is currently afebrile. His vital signs are stable. General: No acute distress. Cardiovascular: Regular rate and rhythm. Lungs: Grossly clear. Abdomen: Soft, nontender, nondistended. Extremities: Left foot dressing was removed. No active drainage, erythema has improved. ASSESSMENT AND PLAN: A 37-year-old with poorly-controlled diabetes, now with infection of previous amputation site. Infection and amputation site at this time given the MRI findings, we will plan on surgical intervention tomorrow. We will try to get it scheduled for tomorrow afternoon or today. Discussed with patient the risks, benefits, and alternatives. He is aware we will probably likely place a wound VAC given the findings on MRI with an abscess. cc: Claudio Wright MD MTDHarsha
[2018-09-12] MEDS: LOVENOX SUBQ SCH (06:10)
[2018-09-12] MEDS: HUMALOG SUBQ SCH ×4 (06:35→22:17)
[2018-09-12 06:49] LABS: BASO# 0.05 X1000 (0.0-0.2); BASO% 0.7 % (0.0-0.8); EOS# 0.36 X1000 (0.0-0.7); EOS% 4.9 % (0.0-10.0); HEMATOCRIT 33.6 % (42.0-52.0); HEMOGLOBIN 10.9 g/dL (14.0-18.0); IMM GRAN# 0.03 X1000 (0.0-0.04); IMM GRAN% 0.4 % (0.0-0.5); LYMPH# 2.38 X1000 (1.2-3.4); LYMPH% 32.3 % (20.5-51.1); MCH 26.1 PG (27-31); MCHC 32.4 g/dL (33-37); MCV 80.6 FL (81-99); MONO# 0.73 X1000 (0.11-0.59); MONO% 9.9 % (1.7-9.3); MPV 9.4 FL (7.4-10.4); NEUT# 3.82 X1000 (1.4-6.5); NEUT% 51.8 % (42.2-75.2); PLT 476 X1000 (130-400); RBC 4.17 XMIL (4.7-6.1); RDW 12.5 % (11.5-14.5); WBC 7.37 X1000 (4.8-10.8)
[2018-09-12 07:03] LABS: AGAP 13; BUN 10 mg/dL (8-22); CALCIUM 9.2 mg/dL (8.8-10.2); CHLORIDE 96 mmol/L (98-107); CK TOTAL 51 U/L (24-204); COSMO 272; CREATININE 0.7 mg/dL (0.7-1.2); ESTIMATED GFR > 60; GLUCOSE 177 mg/dL (70-104); POTASSIUM 4.2 mmol/L (3.5-5.1); SODIUM 134 mmol/L (136-145); TCO2 25 mmol/L (25-35)
[2018-09-12] MEDS: BASAGLAR SUBQ SCH ×2 (08:48→22:20)
[2018-09-12] MEDS ORDERED: REGLAN ONE (09:47)
[2018-09-12] MEDS ORDERED: PEPCID ONE (09:54)
[2018-09-12] MEDS ORDERED: DIPRIVAN 1% ONE (10:02)
[2018-09-12] MEDS ORDERED: XYLOCAINE-MPF 2% ONE (10:32)
[2018-09-12] MEDS ORDERED: ZOFRAN ONE (10:32)
[2018-09-12] MEDS ORDERED: DECADRON ONE (10:32)
[2018-09-12] MEDS: MAXIPIME 2 GM in NS 100 ML IV SCH (10:52)
[2018-09-12] MEDS: PHENERGAN ONE ×4 (11:11→11:56)
[2018-09-12] MEDS: DILAUDID ONE ×4 (11:18→11:55)
--- NOTE | 2018-09-12 11:21 | OPERATIVE NOTE ---
PROCEDURE DATE: 09/12/2018 PREOPERATIVE DIAGNOSIS: Osteomyelitis of the 2nd metatarsal head. POSTOPERATIVE DIAGNOSIS: Osteomyelitis of the 2nd metatarsal head. PROCEDURE PERFORMED: 1. Incision and drainage of left foot. 2. Left 2nd metatarsal head amputation (transmetatarsal). 3. Placement of negative pressure wound dressing. SURGEON: Claudio Wright MD REMOTELY OPERATED VEHICLE: None. ANESTHESIA: General endotracheal. FINDINGS: No real significant abscess cavity noted. The head of the metatarsal was brittle, consistent with osteomyelitis, but the main part of the bone seemed normal. COMPLICATIONS: None at the time of dictation. ESTIMATED BLOOD LOSS: 20 mL. SPECIMENS REMOVED: Pieces of the metatarsal head. BRIEF HISTORY: A 37-year-old gentleman who I had previously done an amputation on his left side, now presenting with drainage and osteomyelitis on his MRI. It was felt that he would benefit from incision and drainage. The risks, benefits, and alternatives were discussed and documented on the chart all questions answered. DESCRIPTION OF PROCEDURE: After an informed consent was obtained, the patient was brought to the operative theater and placed in the supine position. General tracheal anesthesia was then performed without complication. A formal time out was then performed confirming the patient and the procedure. All were in agreement. The patient at that point had his left foot prepped and draped in a sterile fashion. After the time out, we turned our attention to the left foot. We opened the previous incision and encountered a pocket that did not have significant amount of abscess, but we encountered the metatarsal head. We used a rongeur and did a transmetatarsal amputation at the distal aspect back to healthy bone. We irrigated out the wound copiously. We then fashioned a negative pressure wound dressing with a piece of gauze in there. The wound measured 5 x 1 x 4 cm deep. We created a VAC seal. The patient tolerated procedure well and was transferred back to the recovery room. cc: Claudio Wright MD
[2018-09-12] MEDS ORDERED: NS 250 ML ONE (13:54)
--- NOTE | 2018-09-12 14:20 | INFECTIOUS DISEASE PROGRESS NO ---
DATE: 09/12/2018 PRESENT ILLNESS: The patient has osteomyelitis of his left foot. MEDICATIONS: The patient has been on daptomycin and cefepime. PHYSICAL EXAMINATION: Vital Signs: Temperature is 100 degrees, pulse 99, respirations 28, blood pressure 125/69. General: This is an obese, young male. He is in no acute distress. He just returned from having surgery. Head/eyes/ears/nose/throat: No drainage is noted from the nose or ears. He does not have any white coating on his tongue. Neck: No stiffness. Lungs: Clear to auscultation. Cardiovascular: Regular heart rate. Abdomen: Soft and nontender. Extremities: The patient's left foot has a large dressing around it. The patient has just returned from surgery. Neurologic: The patient is awake. He can move his extremities. There is no tremor. LAB AND X-RAY: CBC shows a white count of 7370, hemoglobin 10.9, and platelet count 476,000. Creatinine is 0.7. GFR is greater than 60. The patient's culture from the left foot grew oxacillin sensitive Staph aureus and Enterobacter. The patient's MRI of the foot found osteomyelitis present in the left foot also. ASSESSMENT AND PLAN: The patient has just returned from surgery on his left foot. The patient has a left foot infection including osteomyelitis. My plan is to treat the patient with a combination of Ancef in a dose of 2 g IV every 8 hours and Levaquin 500 mg p.o. daily for a total of 6 weeks. I have ordered that a PICC be placed. I am putting in an order for [facility] to supply the patient's home IV antibiotic. I have printed up a prescription for Levaquin through the computer. I am putting in a consult to get a PICC placed and then a consult for [facility] to supply the patient's home IV cefazolin. I have written for an appointment for the patient to come to my office in 3 weeks. COMORBIDITIES: Patient is a diabetic and unfortunately, he does not control his diabetes well. cc: Richard Mirza MD
--- NOTE | 2018-09-12 15:23 | PROGRESS NOTE ---
DATE: 09/12/2018 SUBJECTIVE: Patient reports feeling fine. No issues at this time. OBJECTIVE: Vitals: Temperature 98.5, heart rate 96, respiratory rate 16, blood pressure 114/57, O2 sat 97% on room air. General: This is a 37-year-old male lying in bed in no acute distress. Cardiovascular: S1, S2 heard. No murmurs, gallops or rubs. Regular rate and rhythm. Respiratory: Clear bilaterally to auscultation. No work of breathing or using accessory muscles. Abdomen: Soft, nontender to palpation. Bowel sounds present. No organomegaly. Extremities: There is left foot covered with dressing and connected to a wound VAC. Neurologic: Patient alert and oriented x 3. Moves 4 extremities. LABORATORY DATA: Reviewed. ASSESSMENT AND PLAN: 1. Sepsis secondary to skin and soft tissue infection of the left lower extremity. Actually, the patient had osteomyelitis of the left foot. Dr. Wright from General Surgery has performed incision and drainage of the left foot with left 2nd metatarsal head amputation, and he had placed a wound VAC. From a medical standpoint and considering his age and comorbidities and his history of noncompliance, I prefer and agreed with the plan with Dr. Mirza to treat him for 6 weeks with IV Ancef considering that he has grown Staphylococcus aureus and Levofloxacin for Enterobacter. At this point, the patient is in the hospital because he has just had surgery. We will continue to monitor this patient closely. We are going to get a PICC line for administration on Ancef. Will check with Surgery when this patient is ready to go. 2. Uncontrolled diabetes mellitus. After we increased dosis of Lantus he is doing much better. Will continue with same management. cc: Braydon Fu MD [facility]
[2018-09-12 15:26] LABS: INR 1.03; PROTIME 14.3 Seconds (11.0-16.0)
[2018-09-12] MEDS: SODIUM BICARBONATE PO SCH ×2 (17:11→22:19)
[2018-09-12] MEDS: KEFZOL 2 GM/D5W 2 GM/50 ML IVPB IV SCH (17:27)
[2018-09-12] MEDS: LEVAQUIN PO SCH (18:32)
[2018-09-12] MEDS: DULCOLAX PR SCH ×2 (20:09→22:17)
[2018-09-12] MEDS: PRINIVIL PO SCH (20:10)
[2018-09-12] MEDS: MIRALAX PO SCH (20:11)
[2018-09-12] MEDS: PROTONIX PO SCH (20:11)
[2018-09-12] MEDS: ICAR-C PO SCH ×2 (20:11→22:20)
[2018-09-12] MEDS: NORVASC PO SCH ×2 (20:12→22:18)
[2018-09-12] MEDS: REMERON PO SCH (22:18)
[2018-09-12] MEDS: PERIDEX MT SCH (22:19)
[2018-09-13] MEDS: KEFZOL 2 GM/D5W 2 GM/50 ML IVPB IV SCH ×3 (00:26→16:26)
[2018-09-13] MEDS: OFIRMEV 1000 MG/ISOTONIC SOLN 1,000 MG/100 ML BOTTLE IV SCH ×6 (00:27→23:16)
[2018-09-13] MEDS: DILAUDID IV PRN ×8 (00:27→23:16)
[2018-09-13] MEDS: PHENERGAN IV PRN ×4 (03:19→23:16)
[2018-09-13] MEDS: LOVENOX SUBQ SCH ×2 (04:49→06:05)
--- NOTE | 2018-09-13 06:16 | GENERAL SURGERY PROGRESS NOTE ---
DATE: 09/13/2018 SUBJECTIVE: Patient doing okay. OBJECTIVE: Vital Signs: Patient is currently afebrile. His vital signs are stable. General: No acute distress. Cardiovascular: Regular rate and rhythm. Lungs: Grossly clear. Abdomen: Soft, nontender, nondistended. Extremities: Wound VAC in place with good seal. ASSESSMENT AND PLAN: A 37-year-old status post incision and debridement and transmetatarsal amputation of the second digit on the left side with wound VAC placement. Postoperative state. At this time, patient seems to be doing okay. We will change his wound VAC on . At that point, will likely be discharged home. Antibiotic duration per Infectious Disease. cc: Claudio Wright MD
[2018-09-13] MEDS: HUMALOG SUBQ SCH ×4 (06:19→20:09)
[2018-09-13 07:32] LABS: BASO# 0.05 X1000 (0.0-0.2); BASO% 0.6 % (0.0-0.8); EOS# 0.31 X1000 (0.0-0.7); EOS% 3.9 % (0.0-10.0); HEMATOCRIT 30.1 % (42.0-52.0); HEMOGLOBIN 9.9 g/dL (14.0-18.0); IMM GRAN# 0.03 X1000 (0.0-0.04); IMM GRAN% 0.4 % (0.0-0.5); LYMPH# 2.58 X1000 (1.2-3.4); LYMPH% 32.5 % (20.5-51.1); MCH 26.9 PG (27-31); MCHC 32.9 g/dL (33-37); MCV 81.8 FL (81-99); MONO# 0.92 X1000 (0.11-0.59); MONO% 11.6 % (1.7-9.3); MPV 9.6 FL (7.4-10.4); NEUT# 4.05 X1000 (1.4-6.5); PLT 438 X1000 (130-400); RBC 3.68 XMIL (4.7-6.1); RDW 12.7 % (11.5-14.5); WBC 7.94 X1000 (4.8-10.8)
[2018-09-13 07:50] LABS: AGAP 11; BUN 12 mg/dL (8-22); CALCIUM 9.2 mg/dL (8.8-10.2); CHLORIDE 100 mmol/L (98-107); COSMO 282; CREATININE 0.6 mg/dL (0.7-1.2); ESTIMATED GFR > 60; GLUCOSE 247 mg/dL (70-104); POTASSIUM 4.1 mmol/L (3.5-5.1); SODIUM 137 mmol/L (136-145); TCO2 26 mmol/L (25-35)
[2018-09-13] MEDS: SODIUM BICARBONATE PO SCH (09:00)
[2018-09-13] MEDS: PRINIVIL PO SCH (09:06)
[2018-09-13] MEDS: MIRALAX PO SCH (09:06)
[2018-09-13] MEDS: PROTONIX PO SCH (09:06)
[2018-09-13] MEDS: PERIDEX MT SCH ×2 (09:06→20:09)
[2018-09-13] MEDS: ICAR-C PO SCH ×2 (09:06→20:09)
[2018-09-13] MEDS: NORVASC PO SCH ×2 (09:06→20:10)
[2018-09-13] MEDS: LEVAQUIN PO SCH (09:06)
[2018-09-13] MEDS: BASAGLAR SUBQ SCH (09:07)
[2018-09-13] MEDS: DULCOLAX PR SCH ×2 (09:07→20:10)
[2018-09-13] MEDS: SODIUM CHLORIDE 0.9% INJ PRN ×3 (09:36→23:16)
--- NOTE | 2018-09-13 15:40 | INFECTIOUS DISEASE PROGRESS NO ---
DATE: 09/13/2018 PRESENT ILLNESS: The patient is status post surgery for osteomyelitis of the left foot. MEDICATIONS: The patient is on Ancef intravenously and Levaquin p.o. PHYSICAL EXAMINATION: Vital Signs: Temperature is 99 degrees, pulse 80, respirations 20, blood pressure 120/60. General: This is a somewhat ill-appearing young male. He is in no acute distress. Head, eyes, ears, nose, and throat: He can hear my spoken words and see near objects. He does not have any white patches on his tongue. Neck: No stiffness. Lungs : Clear to auscultation. Cardiovascular: Regular heart rate. Abdomen: Soft and nontender. Extremities: The patient's left foot has a dressing around it and a VAC in place. LAB AND RADIOLOGY: CBC-WBC 7.94, hgb 9.9, platelets 438K. Creatinine-0.6. GFR-> 60. No new radiographic study. ASSESSMENT AND PLAN: Patient has left foot osteomyelitis. I plan to treat the patient for 6 weeks with IV Ancef and PO Levaquin. COMORBIDITIES: The patient's main comorbidity is diabetes mellitus, which unfortunately the patient does not control well. cc: Richard Mirza MD MTDD
[2018-09-13] MEDS: REMERON PO SCH (20:09)
--- NOTE | 2018-09-13 23:01 | PROGRESS NOTE ---
DATE: 09/13/2018 SUBJECTIVE: This patient is resting comfortably in bed. He is not complaining of pain at this moment, no acute events overnight. OBJECTIVE: Vital Signs: Temperature 97.5 degrees, pulse 80, respiratory rate 16, blood pressure 104/53, oxygen saturation 97 on room air. HEENT: Head normocephalic. No trauma. PERRLA. Neck: Supple. No JVD. No masses. Central trachea. Chest: Clear to auscultation. No wheezing. No rales. Abdomen: Soft, nontender, nondistended. No hepatosplenomegaly. Extremities: His left foot is covered with a dressing that is connected to a wound VAC, I am able to see the 3rd, 4th and 5th toe, he has a little bit of ulcers on top of them but they do not look infected. Neurologic: Alert and oriented x3. No focal deficits. LABORATORY: WBC 7.9, hemoglobin 9.9, hematocrit 30.1, platelets 438,000, sodium 137, potassium 4.1, chloride 100, bicarbonate 26, BUN 12, creatinine 0.6, glucose 247, calcium 9.2. ASSESSMENT AND PLAN: 1. Sepsis secondary to skin and soft tissue infection, osteomyelitis of the left foot, Dr. Wright from Surgery Department performed an incision and drainage of the left foot with left 2nd metatarsal head amputation and he had placed this patient on a wound vacuum-assisted closure, he is getting antibiotics by Infectious Disease Department. Will continue with the same management. 2. Left foot osteomyelitis, as above. 3. Uncontrolled type 2 diabetes, the dose of Lantus has been increased and it looks like he is doing better with that. Will continue to monitor. cc: Dago Malone MD
[2018-09-14] MEDS: KEFZOL 2 GM/D5W 2 GM/50 ML IVPB IV SCH ×3 (01:51→16:35)
[2018-09-14] MEDS: BASAGLAR SUBQ SCH ×3 (01:52→20:49)
[2018-09-14] MEDS: AMBIEN PO SCH ×2 (01:52→22:44)
[2018-09-14] MEDS: DILAUDID IV PRN ×7 (02:16→22:44)
[2018-09-14] MEDS: LOVENOX SUBQ SCH (05:54)
[2018-09-14] MEDS: OFIRMEV 1000 MG/ISOTONIC SOLN 1,000 MG/100 ML BOTTLE IV SCH ×3 (05:54→17:49)
[2018-09-14] MEDS: PHENERGAN IV PRN ×4 (05:54→19:42)
[2018-09-14 07:30] LABS: AGAP 11; BUN 11 mg/dL (8-22); CALCIUM 8.9 mg/dL (8.8-10.2); CHLORIDE 100 mmol/L (98-107); COSMO 275; CREATININE 0.6 mg/dL (0.7-1.2); ESTIMATED GFR > 60; GLUCOSE 136 mg/dL (70-104); POTASSIUM 4.2 mmol/L (3.5-5.1); SODIUM 137 mmol/L (136-145); TCO2 26 mmol/L (25-35)
--- NOTE | 2018-09-14 07:54 | GENERAL SURGERY PROGRESS NOTE ---
DATE: 09/14/2018 SUBJECTIVE: The patient seems to be doing well. He did switch rooms. His wound VAC is in place with a good seal to his lower extremity. Plan is to change it at the bedside tomorrow. If it looks okay, will likely discharge him with potential wound VAC for home. cc: Claudio Wright MD
[2018-09-14] MEDS: PRINIVIL PO SCH (09:06)
[2018-09-14] MEDS: LEVAQUIN PO SCH (09:06)
[2018-09-14] MEDS: NORVASC PO SCH ×2 (09:06→20:57)
[2018-09-14] MEDS: ICAR-C PO SCH ×2 (09:06→20:57)
[2018-09-14] MEDS: PROTONIX PO SCH (09:06)
[2018-09-14] MEDS: MIRALAX PO SCH ×2 (09:08→09:20)
[2018-09-14] MEDS: PERIDEX MT SCH ×2 (09:08→20:57)
[2018-09-14] MEDS: HUMALOG SUBQ SCH ×4 (09:19→20:57)
[2018-09-14] MEDS: DULCOLAX PR SCH ×2 (09:20→20:56)
--- NOTE | 2018-09-14 13:52 | PROGRESS NOTE ---
DATE: 09/14/2018 SUBJECTIVE: Patient resting comfortably in bed. He is not complaining of pain at this moment. No acute events overnight. OBJECTIVE: Vital Signs: Temperature 98.9 degrees, pulse 91, respiratory rate 20, blood pressure 114/60, oxygen saturation 94% on room air. HEENT: Head normocephalic. No trauma. PERRLA. Neck: Supple. No JVD. No masses. Central trachea. Chest: Clear to auscultation. No wheezing. No rales. Abdomen: Soft, nontender, nondistended. No hepatosplenomegaly. Extremities: His left foot is covered with a dressing that is connected to a wound VAC. I am able to see the 3rd, 4th, and 5th toes, and they have a little bit of ulcer on top of them, but they do not look infected. Neurologic: The patient is alert and oriented x3. No focal deficits. LABORATORY DATA: Sodium 137, potassium 4.2, chloride 100, bicarbonate 26, BUN 11, creatinine 0.6, glucose 136, calcium 8.9. ASSESSMENT AND PLAN: 1. Sepsis secondary to skin and soft tissue infection/osteomyelitis of the left foot. Dr. Wright from Surgery Department performed an incision and debridement of the left foot with left 2nd toe metatarsal head amputation. He has been placed on a wound VAC. He is getting antibiotics by the Infectious Disease Department. Will continue with the same management. Hopefully, tomorrow Dr. Wright will check the wound and if everything is okay, probably we can discharge this patient home with intravenous antibiotics per the Infectious Disease Department. 2. Left foot osteomyelitis. As above. 3. Uncontrolled type 2 diabetes, better controlled after increasing the amount of Lantus twice a day. Will monitor. cc: Dago Malone MD
[2018-09-14] MEDS: REMERON PO SCH (20:57)
[2018-09-15] MEDS: OFIRMEV 1000 MG/ISOTONIC SOLN 1,000 MG/100 ML BOTTLE IV SCH ×3 (01:37→12:16)
[2018-09-15] MEDS: KEFZOL 2 GM/D5W 2 GM/50 ML IVPB IV SCH ×2 (01:38→09:02)
[2018-09-15] MEDS: PHENERGAN IV PRN ×3 (02:31→15:05)
[2018-09-15] MEDS: DILAUDID IV PRN ×5 (02:32→15:06)
--- NOTE | 2018-09-15 04:10 | INFECTIOUS DISEASE PROGRESS NO ---
DATE: 09/14/2018 SUBJECTIVE: The patient is status post surgery for a Staph aureus and Enterobacter-infected osteomyelitis of the left foot. MEDICATIONS: The patient is on the second day of treatment with a combination of IV Ancef and p.o. Levaquin. OBJECTIVE: Vital Signs: Temperature is 99.2 degrees, pulse 97, respirations 21, blood pressure 114/70. General: This is an obese, somewhat ill-appearing, young male. He is in no acute distress. Head, eyes, ears, nose, and throat: He can hear my spoken words and see near objects. He does not have any white patches on his tongue. Neck: No meningismus. Lungs: Clear to auscultation. Cardiovascular: Regular heart rate. Abdomen: Soft and nontender. Extremities: The left foot has a dressing around it, and has the VAC in place. LABORATORY AND RADIOLOGY: There is no radiology. There is no new CBC for today. The creatinine is 0.6. GFR is greater than 60, and the CK is 51. ASSESSMENT AND PLAN: Patient has left foot osteomyelitis. My plan is to continue the patient's current antibiotics namely, intravenous Ancef and by mouth Levaquin for 6 weeks. COMORBIDITIES: The patient is diabetic and unfortunately, he does not keep his diabetes under good control. cc: Richard Mirza MD
[2018-09-15] MEDS: HUMALOG SUBQ SCH ×2 (06:26→12:01)
[2018-09-15 06:31] LABS: AGAP 13; BUN 13 mg/dL (8-22); CHLORIDE 100 mmol/L (98-107); COSMO 278; CREATININE 0.7 mg/dL (0.7-1.2); ESTIMATED GFR > 60; GLUCOSE 100 mg/dL (70-104); POTASSIUM 4.4 mmol/L (3.5-5.1); SODIUM 139 mmol/L (136-145); TCO2 26 mmol/L (25-35)
[2018-09-15] MEDS: LOVENOX SUBQ SCH (06:31)
--- NOTE | 2018-09-15 06:52 | GENERAL SURGERY PROGRESS NOTE ---
DATE: 09/15/2018 SUBJECTIVE: Patient seems to be doing okay. OBJECTIVE: Vital Signs: The patient is currently afebrile. His vital signs are stable. General Examination: No acute distress. Cardiovascular: Regular rate and rhythm. Lungs: Grossly clear. Abdomen: Soft, nontender, nondistended. Extremities: Wound VAC in place on the left lower extremity with a good seal. ASSESSMENT AND PLAN: A 37-year-old with osteomyelitis of the left foot. Postoperative state. At this time, we will plan on a wound VAC change at the bedside. If it looks okay, maybe can consider discharge. cc: Claudio Wright MD
[2018-09-15] MEDS: NORVASC PO SCH (09:07)
[2018-09-15] MEDS: LEVAQUIN PO SCH (09:07)
[2018-09-15] MEDS: PRINIVIL PO SCH (09:07)
[2018-09-15] MEDS: PERIDEX MT SCH (09:07)
[2018-09-15] MEDS: ICAR-C PO SCH (09:07)
[2018-09-15] MEDS: BASAGLAR SUBQ SCH (09:09)
[2018-09-15] MEDS: DULCOLAX PR SCH (10:10)
[2018-09-15] MEDS: PROTONIX PO SCH (10:12)
[2018-09-15] MEDS: MIRALAX PO SCH (10:13)
[2018-09-15 13:27] VITALS: BP 111/69
--- NOTE | 2018-09-15 15:08 | INFECTIOUS DISEASE PROGRESS NO ---
DATE: 09/15/2018 PROGRESS NOTE: The patient has Staph aureus and Enterobacter infected osteomyelitis of the left foot. The patient is being discharged today on Ancef 2 g IV every 8 hours and Levaquin 500 mg p.o. daily. Both the Ancef and Levaquin will be continued for a total of 6 weeks. The patient also is going home with a VAC in place. I have requested that the patient have an appointment in my office in 3 weeks and then after that we will see the patient at 6 weeks and hopefully will be able to discontinue the antibiotics and remove the patient's PICC. [facility] is supplying the patient's home IV antibiotic. cc: Richard Mirza MD
--- NOTE | 2018-09-16 07:01 | DISCHARGE SUMMARY ---
ADMISSION DATE: 09/07/2018 DISCHARGE DATE: 09/15/2018 DISCHARGE DIAGNOSES: 1. Sepsis secondary to soft tissue infection/osteomyelitis of the left foot. 2. Left foot osteomyelitis. 3. Uncontrolled type 2 diabetes. 4. Medical noncompliance. 5. Hypertension. 6. Nicotine dependence. CONSULTATIONS: 1. Surgery Department, Dr. Wright. 2. Infectious Disease Department. Dr. Richard Mirza. PROCEDURE PERFORMED: I and D of the left foot, left 2nd metatarsal head amputation, placement of negative pressure wound dressing due to osteomyelitis of the second metatarsal head and soft tissue infection. HOSPITAL COURSE: A 37-year-old male with an extensive history of uncontrolled diabetes. He has had multiple admissions to the hospital because of diabetes-related acute complications, previously discharged on 08/18/2018 after 7 days of hospitalization. On that occasion he did have surgery to his left foot: Transmetatarsal amputation of the 1st toe and distal ray amputation of the left 2nd toe was done due to osteomyelitis, but apparently, the day of admission on 09/07/2018 he was feeling fever and chills. He called to the surgeon's office who advised to come to the emergency department to be evaluated. Upon examination in the emergency department the right lower extremity was edematous distally, warm to touch and very tender. There where sutures in place for the recent amputation and blood around the lesion. During the course of his hospitalization this patient was tachycardic, leukocyte count upon admission was 20.8, tachycardic and with a soft tissue and bone infection. The patient was placed on antibiotics. Cultures have been requested. He presented also with mild hyponatremia that was likely secondary to hyperglycemia. He was transferred to the medical floor. He received IV hydration antibiotics. We controlled his blood sugar and consulted Infectious Disease Department and Surgery Department. The Surgery Department did an I and D of the left 2nd metatarsal with amputation and placement of a negative pressure wound dressing. Wound care on board. Microbiology showed a wound with Staphylococcus aureus and Enterobacter cloacae complex. For this, Dr. Mirza has suggested to treat this patient with Ancef 2 g IV every 8 hours and Levaquin 500 mg p.o. daily to complete 6 weeks and follow up with him in 3 weeks. This patient will be discharged today. Blood sugar stable as well as vital signs. He is not complaining of too much pain, just mild pain when irrigating the wound. He will go home with a wound VAC machine and he will need to go to the wound clinic twice a week to change the dressing and evaluation. Upon discharge the patient was in a stable medical condition tolerating p.o. and ambulating. PHYSICAL EXAMINATION: Vital signs: Temperature 98.1 degrees, pulse 92, respiratory rate 20, blood pressure 111/69, oxygen saturation 98 on room air. HEENT: Head normocephalic. No trauma. PERRLA. Neck: Supple. No JVD. No masses. Central trachea. Chest: Clear to auscultation. No wheezing. No rales. Abdomen: Soft, nontender, nondistended. No hepatosplenomegaly. Extremities: His left foot is covered with a dressing that is connected to a wound VAC machine. I am able to see the 3rd, 4th and 5th toes. They have little ulcers on top of them but they do not look infected and they are healing fine. Neurological: Alert and oriented x3. No focal deficits. LABORATORY: Sodium 139, potassium 4.4, chloride 100, bicarbonate 26, BUN 13, creatinine 0.7, glucose 100, calcium 9. DISCHARGE MEDICATIONS: 1. Ancef 2 g IV every 8 hours to complete 6 weeks. 2. Levofloxacin 500 mg p.o. daily to complete 6 weeks. 3. Sinuflex 4 mg p.o. t.i.d. 4. Protonix 40 mg p.o. daily. 5. Remeron 30 mg p.o. at bedtime. 6. Ativan 1 mg 1 mg p.o. t.i.d. as needed. 7. Lisinopril 30 mg p.o. daily. 8. Icar C one tablet p.o. b.i.d. 9. NovoLog sliding scale at home running 1 mg p.o. b.i.d. as needed. 10. Amlodipine 5 mg p.o. b.i.d., 11. Ambien 10 mg p.o. at bedtime as needed for insomnia. 12. MiraLAX 17 g p.o. daily. 13. Protonix 40 mg p.o. daily. 14. Insulin glargine 70 units subcutaneously b.i.d. 15. Dulcolax 10 mg per rectal b.i.d. 16. Turner 1 tablet p.o. q.6 hours as needed. TIME DISCHARGING THIS PATIENT: 35 minutes. cc: Dago Malone MD
== END 2018-09-15 16:31 | disposition home or self-care (01) | DRG 503 ==
LOC: ED 20:14 → EDIPHOLD 23:29 → SUATTDRO 23:29 → 4N 09-08 07:05
PROVIDERS: ATTEND Internal Medicine
CPT/HCPCS: 36569; 73620; 73723; 80048; 80053; 81001; 82550; 82805; 82948; 83036; 83605; 85025; 85610; 87040; 87070; 87077; 87186; 88304; 96365; 96367; 96372; 96375; 99285; A9270; A9579; J0131; J0690; J0692; J0696; J0878; J1100; J1170; J1650; J1815; J2270; J2405; J2543; J2550; J2765; J3370; J7030; J7040; J7050; S0028; S0077; XXXXX

== ENCOUNTER 2018-11-02 11:58 | Inpatient (IN) ==
[2018-11-02 14:07] LABS: ALLEN TEST YES; BE -13.1 mmoll (-3.0-3.0); BLOOD TYPE ARTERIAL; HCO3-(ACT) 14.7 mmoll (20.0-26.0); METHB 0.3 % (0.0-1.5); O2(CT) 12.9 mL/dL (15.0-23.0); O2HB 97.2 % (95.0-99.0); PCO2(98.6) 24 mmHg (35-45); PO2(98.6) 107 mmHg (60-100); SAMPLE BLOOD; SAO2 99.5 % (95.0-100.0); THB 9.3 g/dL (11.5-17.4)
[2018-11-02 14:08] LABS: MODALITY ROOM AIR
--- NOTE | 2018-11-02 14:17 | Diag Imaging Result Doc PS360 ---
EXAM: CHEST-1 VIEW 11/02/2018 HISTORY: SEPSIS TECHNIQUE: AP portable at 1359 COMMENT: There is no evidence of acute cardiac or pulmonary disease. The inspiration is better than on 08/11/2018. Otherwise there has been no significant change. IMPRESSION: No acute disease. Electronically signed by Alexx Chapman 11/02/2018 2:15 PM
[2018-11-02 14:22] LABS: BASO# 0.01 X1000 (0.0-0.2); BASO% 0.1 % (0.0-0.8); HEMATOCRIT 34.3 % (42.0-52.0); HEMOGLOBIN 12.1 g/dL (14.0-18.0); IMM GRAN# 0.04 X1000 (0.0-0.04); IMM GRAN% 0.3 % (0.0-0.5); LYMPH# 0.94 X1000 (1.2-3.4); LYMPH% 7.3 % (20.5-51.1); MCH 26.9 PG (27-31); MCHC 35.3 g/dL (33-37); MCV 76.2 FL (81-99); MONO# 0.79 X1000 (0.11-0.59); MONO% 6.1 % (1.7-9.3); MPV 10.3 FL (7.4-10.4); NEUT# 11.08 X1000 (1.4-6.5); NEUT% 86.2 % (42.2-75.2); PLT 514 X1000 (130-400); RDW 14.1 % (11.5-14.5); WBC 12.86 X1000 (4.8-10.8)
[2018-11-02 14:25] LABS: INR 1.04; PROTIME 14.5 Seconds (11.0-16.0); PTT 27.1 Seconds (22.3-41.8)
[2018-11-02] MEDS ORDERED: NS 1,000 ML IV ONE (14:36)
[2018-11-02] MEDS ORDERED: MORPHINE IV ONE (14:36)
[2018-11-02] MEDS ORDERED: HUMULIN R IV ONE ×2 (14:36→16:15)
[2018-11-02] MEDS ORDERED: ZOFRAN IV ONE (14:36)
[2018-11-02 14:43] LABS: URINE SOURCE CLEAN CATCH
[2018-11-02 14:49] LABS: BILIRUBIN URINE NEGATIVE (NEGATIVE); BLOOD URINE NEGATIVE (NEGATIVE); COLOR STRAW; GLUCOSE URINE >1000 mg/dL (NEGATIVE); KETONE URINE 150 mg/dL (NEGATIVE); LEUKOCYTES URINE NEGATIVE (NEGATIVE); NITRITE URINE NEGATIVE (NEGATIVE); PH URINE 5.5; PROTEIN URINE NEGATIVE (NEGATIVE); SP GRAVITY URINE 1.024; TURBIDITY URINE CLEAR (CLEAR); UROBILINOGEN URINE NORMAL (NORMAL)
[2018-11-02 14:50] LABS: UR EPITHELIAL CELLS <10 /HPF (<10); URINE BACTERIA NEGATIVE /HPF; URINE RBC <10 /HPF (<10); URINE WBC <10 /HPF (<10)
[2018-11-02 15:06] LABS: ALB/GLOB RATIO 1.5; ALBUMIN 4.8 g/dL (3.5-5.0); CALCIUM 9.2 mg/dL (8.8-10.2); CREATININE 1.7 mg/dL (0.7-1.2); POTASSIUM 3.6 mmol/L (3.5-5.1); TOTAL BILIRUBIN 0.31 mg/dL (0.20-1.00); TOTAL PROTEIN 7.9 g/dL (6.3-8.3)
--- NOTE | 2018-11-02 15:16 | PROVIDER DOCUMENTATION ---
This chart was entered by Magdalena Lopez Scribe, acting as scribe for Jean-Claude Pérez CRNP. HPI-Abdominal Pain/GI Problem - General Chief Complaint: General Adult Stated Complaint: SICK CANT EAT Time Seen by Provider: 11/02/18 14:07 Source: patient Allergies/Adverse Reactions: Patient Allergies Allergy/AdvReac Type Severity Reaction Status Date / Time Sulfa (Sulfonamide Allergy HIVES Verified 11/02/18 13:22 Antibiotics) vancomycin AdvReac RASH Verified 11/02/18 13:22 Home Medications: Home Medication List Medication Instructions Recorded Confirmed Last Taken Type Clonidine [Catapres] 0.1 mg PO BID PRN 02/11/17 11/02/18 10/31/18 History Insulin Aspart [Novolog] 1 dose SQ TID 01/17/18 11/02/18 11/01/18 History Iron Carbonyl/Ascorbic Acid 1 each PO BID tablet 01/26/18 11/02/18 11/02/18 Rx [Icar-C] Mirtazapine [Remeron] 30 mg PO HS 02/18/18 11/02/18 11/01/18 History Amlodipine [Norvasc] 5 mg PO BID tablet 06/27/18 11/02/18 11/02/18 Rx Lorazepam [Ativan] 1 mg PO TID PRN PRN tablet 06/27/18 11/02/18 11/02/18 08:00 Rx Lisinopril 30 mg PO DAILY #0 08/18/18 11/02/18 11/02/18 Rx Tizanidine HCl [Zanaflex] 4 mg PO TID 09/08/18 11/02/18 11/02/18 History Hydrocodone/Acetaminophen [[place] 1 ea PO Q6H PRN #20 tab 09/15/18 11/02/18 11/02/18 09:00 Rx 7.5-325 Tablet] Insulin Glargine [Basaglar] 70 unit SUBQ BID #2 insuln.pen 09/15/18 11/02/18 11/02/18 Rx Pantoprazole [Protonix] 40 mg PO DAILY tablet 09/15/18 11/02/18 11/02/18 Rx Zolpidem [Ambien] 10 mg PO HS PRN #20 tab 09/15/18 11/02/18 11/01/18 Rx - History of Present Illness-ABD Nature of Presenting Problems: 37 y/o male presents to ED with N/V, abdominal pain, and chest pain onset 4 days ago. Pt reports hx Type I diabetes. Pt states he recently had an infection to L foot. Pt reports he had L great and second toes amputated in August and his wound vac was removed 2 weeks ago. Pt is alert and oriented. Abdominal Pain Onset Location: reports: generalized abdomen Pain Radiation: reports: no radiation Quality of Pain: reports: aching Severity in ED: reports: mild Onset/Duration: reports: 4 days ago Timing: reports: still present Activities at Onset: reports: none, recent emotional stress Modifying Factors: worse with: palpation Associated Symptoms: reports: chest pain, nausea, vomiting, other (abdominal pain) Last BM: unsure Dark Stools Present?: reports: none noticed Rectal Bleeding: reports: none Rectal Pain: reports: none Similar Symptoms Previously?: No Recently seen or treated by another doctor?: No Review of Systems - Adult - REVIEW OF SYSTEMS - ADULT Constitutional: denies: chills, fever Eyes: reports: no symptoms reported Ears, Nose, Mouth & Throat: reports: no symptoms reported Cardiovascular: reports: chest pain. denies: palpitations Respiratory: denies: cough, shortness of breath Gastrointestinal: reports: abdominal pain, nausea, vomiting. denies: diarrhea Genitourinary: reports: no symptoms reported Musculoskeletal: denies: back pain, joint pain Integumentary: reports: no symptoms reported Neurological: denies: dizziness/vertigo, seizure Psychiatric: reports: no symptoms reported Endocrine: reports: no symptoms reported Hematologic/Lymphatic: reports: no symptoms reported Allergic/Immunologic: reports: no symptoms reported All Other Systems: Reviewed and Negative Past History - Adult - PAST MEDICAL HISTORY-ADULT Review of Records: reports: Old Records Reviewed, Nursing Assessment Review, Medications Reviewed Major Childhood Illnesses: reports: denies history Cardiovascular: reports: HTN Respiratory: reports: denies history Gastrointestinal: reports: denies history Obstetrical/Gynecological: reports: denies history Genitourinary: reports: kidney disease, other (Sofi history of) Musculoskeletal: reports: denies history Neurological: reports: denies history Psychiatric: reports: anxiety, depression Endocrine/Immune: reports: Diabetes Diabetes Type: Type 1 Other Conditions: reports: MRSA - PRIOR SURGERIES/PROCEDURES Surgical/Procedure History: reports: recent surgery (09/12/18), reviewed, not pertinent, orthopedic (extremity) (amputation of L great and 2nd toes), other (sinus sx, I&D, facial sx) - IMMUNIZATION STATUS Childhood Immunizations: See Nurse Assessment Flu Vaccine: See Nurse Assessment - FAMILY HISTORY Family History: reviewed, not pertinent - SOCIAL HISTORY Smoking: quit greater than 1 year, other (dip) Provider spent 3-5 mins advising pt. on dangers of tobacco.: Discussed manners t o quit use, and f/u contacts for add'l counseling. Substance Use: none presently/history of abuse, alcohol Alcohol Use Frequency: sober (former use) Living Situation: family Physical Exam-General - PHYSICAL EXAM-ADULT Initial Vital Signs Reviewed: Yes - CONSTITUTIONAL General Appearance: appears well, alert, moderate distress. negative: lethargic, slow to respond - EYES Eyes: PERRL/EOMI, pink conjunctivae - HEAD, EARS, NOSE, MOUTH & THROAT HENMT: normocephalic/atraumatic, moist mucous membranes, normal ENT inspection - NECK Neck: non-tender, full range of motion, supple, normal inspection - RESPIRATORY Respiratory: chest non-tender, lungs clear, normal breath sounds, no respiratory distress, no accessory muscle use - CARDIOVASCULAR Cardiovascular: normal peripheral pulses, regular rate, rhythm, no edema, no gallop, no murmur, tachycardia - GASTROINTESTINAL (ABDOMEN) Abdominal Exam: normal bowel sounds, soft, no pulsatile mass, tenderness (diffuse) - MUSCULOSKELETAL Back Exam: normal inspection, no CVA tenderness Extremity: normal range of motion, non-tender, normal capillary refill, other (Amputation of left great and second toes. No erythema or exudate noted to area. Wound appears to have healed well.) Peripheral Pulses: dorsalis-pedis (L): 3+ - SKIN Integumentary: normal color, warm/dry. negative: cyanosis, diaphoresis, jaundice, mottled - NEUROLOGIC Neurologic: grossly normal, no motor/sensory deficits - PSYCHIATRIC Psych/Mental Status: normal mood/affect, normal thought content, normal thought process, oriented x 3 Progress - PLAN OF CARE/RESULTS Progress/Plan/Lab Results: Vital Signs - 8 hr 11/02/18 12:48 11/02/18 13:24 11/02/18 13:30 Temperature 96.9 F L Pulse Rate 128 H 131 H 131 H Respiratory Rate 22 18 19 Blood Pressure 156/108 O2 Sat by Pulse Oximetry 98 99 100 11/02/18 13:40 11/02/18 13:50 11/02/18 14:00 Temperature Pulse Rate 132 H 131 H 137 H Respiratory Rate 18 22 15 Blood Pressure O2 Sat by Pulse Oximetry 100 100 100 Laboratory Results - last 24 hr 11/02/18 11/02/18 11/02/18 13:15 13:58 13:58 WBC 12.86 H RBC 4.50 L Hgb 12.1 L Hct 34.3 L MCV 76.2 L MCH 26.9 L MCHC 35.3 RDW Std Deviation 14.1 Plt Count 514 H MPV 10.3 Immature Gran % (Auto) 0.3 Neut % (Auto) 86.2 H Lymph % (Auto) 7.3 L [place] % (Auto) 6.1 Eos % (Auto) 0.0 Baso % (Auto) 0.1 Immature Gran # (Auto) 0.04 Neut # (Auto) 11.08 H Lymph # (Auto) 0.94 L [place] # (Auto) 0.79 H Eos # (Auto) 0.00 Baso # (Auto) 0.01 PT 14.5 INR 1.04 PTT (Actin FS) 27.1 Specimen Type Sample Site pH pCO2 pO2 HCO3 Base Excess Oxyhemoglobin ABG O2 Sat (Calculated) ABG O2 Saturation ABG Carboxyhemoglobin ABG Methemoglobin Harry Test A-a O2 Difference Total Hemoglobin Lactate Blood Gas Modality FiO2 % Plasma Lactate 1.6 Urine Source 11/02/18 11/02/18 14:00 14:35 WBC RBC Hgb Hct MCV MCH MCHC RDW Std Deviation Plt Count MPV Immature Gran % (Auto) Neut % (Auto) Lymph % (Auto) [place] % (Auto) Eos % (Auto) Baso % (Auto) Immature Gran # (Auto) Neut # (Auto) Lymph # (Auto) [place] # (Auto) Eos # (Auto) Baso # (Auto) PT INR PTT (Actin FS) Specimen Type ARTERIAL Sample Site R RADIAL pH 7.30 L pCO2 24 L pO2 107 H HCO3 14.7 L Base Excess -13.1 L Oxyhemoglobin 97.2 ABG O2 Sat (Calculated) 12.9 L ABG O2 Saturation 99.5 ABG Carboxyhemoglobin 2.00 ABG Methemoglobin 0.3 Harry Test YES A-a O2 Difference 13.0 Total Hemoglobin 9.3 L Lactate 1.00 Blood Gas Modality ROOM AIR FiO2 % 21.0 Plasma Lactate Urine Source CLEAN CATCH Orders Category Date Time Status Cardiac Monitoring DIRECTED Care 11/02/18 13:44 Active IV Insertion ORDERED Care 11/02/18 13:44 Completed Notify MD of + Sepsis Screen NOW Care 11/02/18 13:44 Active Notify Physician As Ordered Care 11/02/18 13:44 Active Nursing- Obtain EKG ONCE Care 11/02/18 14:37 Active Vital Signs Order Q30M Care 11/02/18 14:37 Active CHEST-1 VIEW [RAD] Stat Exams 11/02/18 13:44 Completed ABG [RESP] Routine Lab 11/02/18 14:00 Completed ACETONE SERUM [CHEM] Stat Lab 11/02/18 14:37 Uncollected BLOOD CULTURE [BLDCUL] Stat Lab 11/02/18 13:15 Ordered CBC WITH DIFF [HEME] Stat Lab 11/02/18 13:58 Completed CK PROFILE [SP CHEM] Stat Lab 11/02/18 13:58 Received COMPREHENSIVE METABOLIC PANEL [CHEM] Stat Lab 11/02/18 13:58 Received LACTATE, PLASMA [CHEM] Lab 11/02/18 13:15 Completed LACTATE, PLASMA [CHEM] Lab 11/02/18 16:45 Uncollected LACTATE, PLASMA [CHEM] Lab 11/02/18 19:45 Uncollected LIPASE [CHEM] Stat Lab 11/02/18 14:38 Uncollected MAGNESIUM [CHEM] Stat Lab 11/02/18 14:38 Uncollected PROTIME WITH INR [COAG] Stat Lab 11/02/18 13:58 Completed PTT [COAG] Stat Lab 11/02/18 13:58 Completed TROPONIN T Stat Lab 11/02/18 13:58 Received URINALYSIS W/POSS RFLX CULT [URINALYSIS] Stat Lab 11/02/18 14:35 Results 0.9% Sodium Chloride Inj [Ns] 1,000 ml Med 11/02/18 14:36 Active IV 999 mls/hr Insulin Human Regular [Humulin R] Med 11/02/18 14:36 Discontinued 10 unit IV NOW ONE Morphine Med 11/02/18 14:36 Discontinued 4 mg IV NOW ONE Ondansetron [Zofran] Med 11/02/18 14:36 Discontinued 4 mg IV NOW ONE Oxygen Device Stat Oth 11/02/18 13:44 Active EKG [EKG] Stat Ther 11/02/18 14:37 Ordered Discussed admission plan with pt who is in agreement. Result Diagrams: 11/02/18 13:58 11/02/18 13:58 - XRAY 1 XRAY Study: Chest Impression: Normal (COMMENT: There is no evidence of acute cardiac or pulmonary disease. The inspiration is better than on 08/11/2018. Otherwise there has been no significant change. IMPRESSION: No acute disease. Electronically signed by Alexx Chapman 11/02/2018 2:15 PM) - CONSULTS/PCP/HOSPITALIST Notification #1 *Consult/PCP/Hospitalist*: AUBREE Martin CLIENT LIAISON Consult Disposition: Admit (No further orders at this time, states she will initiate DKA insulin protocol and admission will go to Dr. Aguila.) Departure - Departure Date of Disposition Decision: 11/02/18 Time of Disposition Decision: 15:15 DIAGNOSIS: DKA (diabetic ketoacidosis) Qualifiers: Diabetes mellitus type: type 1 Diabetes mellitus complication detail: without coma Qualified Code(s): E10.10 - Type 1 diabetes mellitus with ketoacidosis without coma Disposition: ADMITTED INPATIENT 09 Certified Medical Emergency: Emergent Condition: Stable Referrals and Follow-Ups: Cj Anaya [Primary Care Provider] - - Critical Care Note This patient required my direct & personal management of CC.: No Attestation - Physician/ AMY Attestation Patient care was provided by Advanced Practice Provider:: Yes Advanced Practice Provider:: Jean-Claude Pérez Advanced Practice Provider documentation review:: The Mid-level provider docfranci tation, treatment plan and medical decision making was reviewed by the physician who agrees with all treatment and medical decision making by the MLP. The physician spent face to face time with patient:: No Advanced Practice Provider documentation review:: Supervising physician onsite and consulted in the evaluation and care of this patient. The physician did not have a face to face encounter with the patient. This chart was documented by the indicated scribe, (Magdalena Lopez, [place]) and accurately reflects the services I performed and decisions made by me, Jean-Claude Pérez CRNP, as attested by the provider's signature.
[2018-11-02] MEDS ORDERED: CATAPRES PO PRN ×2 (15:19→17:01)
[2018-11-02] MEDS ORDERED: ATIVAN PO PRN (15:19)
[2018-11-02] MEDS ORDERED: AMBIEN PO PRN (15:19)
[2018-11-02] MEDS ORDERED: NORCO-7.5 PO PRN (15:19)
[2018-11-02 15:31] LABS: LIPASE 159 U/L (13-60); MAGNESIUM 2.7 mg/dL (1.5-2.7)
--- NOTE | 2018-11-02 15:57 | EKG Report ---
Test Performed on : 11/02/2018 3:19:51 PM Test Reason : CP Blood Pressure : / mmHG Vent. Rate : 135 BPM Atrial Rate : 135 BPM P-R Int : 182 ms QRS Dur : 082 ms QT Int : 294 ms P-R-T Axes : 051 014 099 degrees QTc Int : 441 ms Sinus tachycardia. Possible Left atrial enlargement Cannot rule out Inferior infarct (cited on or before 21-JAN-2018) Abnormal ECG When compared with ECG of 25-JUN-2018 16:08, premature ventricular complexes. are no longer present Questionable change in initial forces of Inferior leads Nonspecific T wave abnormality now evident in Inferior leads Nonspecific T wave abnormality, worse in Lateral leads Unconfirmed Result
[2018-11-02] MEDS ORDERED: PROTONIX IV SCH (16:00)
[2018-11-02] MEDS ORDERED: SODIUM CHLORIDE 0.9% INJ SCH (16:00)
[2018-11-02] MEDS ORDERED: D50W SYRINGE IV PRN ×2 (16:15→16:54)
[2018-11-02] MEDS ORDERED: SODIUM BICARBONATE 8.4% 50 MEQ in D5W 250 ML IV PRN ×2 (16:15→17:21)
[2018-11-02] MEDS ORDERED: 1/2 NS 1,000 ML IV SCH (16:15)
[2018-11-02] MEDS ORDERED: POTASSIUM CHLORIDE 10% LIQUID PO PRN ×2 (16:15→17:06)
[2018-11-02] MEDS ORDERED: COMPAZINE IV PRN (16:15)
[2018-11-02] MEDS ORDERED: TYLENOL PR PRN ×2 (16:15→17:25)
[2018-11-02] MEDS ORDERED: COMPAZINE PO PRN ×2 (16:15→17:02)
[2018-11-02] MEDS ORDERED: SODIUM PHOSPHATE 30 MMOL in D5W 250 ML IV PRN ×2 (16:15→17:23)
[2018-11-02] MEDS ORDERED: POTASSIUM CHLORIDE 20% LIQUID PO PRN ×2 (16:15→17:17)
[2018-11-02] MEDS ORDERED: ZOFRAN PO PRN ×2 (16:15→17:24)
[2018-11-02] MEDS ORDERED: COMPAZINE PR PRN ×2 (16:15→17:03)
[2018-11-02] MEDS ORDERED: D5 NS 1,000 ML IV SCH (16:15)
[2018-11-02] MEDS ORDERED: TYLENOL PO PRN (16:15)
[2018-11-02] MEDS ORDERED: POTASSIUM CHLORIDE 40 MEQ/SWI 40 MEQ/100 ML IVPB IV PRN ×2 (16:15→17:19)
[2018-11-02] MEDS ORDERED: POTASSIUM CHLORIDE 20 MEQ/SWI 20 MEQ/100 ML IVPB IV PRN (16:15)
[2018-11-02] MEDS ORDERED: SODIUM BICARBONATE 8.4% 100 MEQ in D5W 500 ML IV PRN ×2 (16:15→17:22)
[2018-11-02] MEDS ORDERED: MAGNESIUM SULFATE 2 GM/S.W.I. 2 GM/50 ML IVPB IV PRN ×2 (16:15→17:04)
[2018-11-02] MEDS ORDERED: ZOFRAN IV PRN (16:15)
[2018-11-02 16:21] LABS: ACETONE SERUM MODERATE (NEGATIVE)
[2018-11-02] MEDS ORDERED: HUMULIN R 100 UNIT in NS 99 ML IV SCH ×2 (16:30→17:00)
--- NOTE | 2018-11-02 16:51 | ED EKG INTERP ---
This chart was entered by Magdalena Lopez Scribe, acting as scribe for Cj Gonzalez MD. EKG Interpretation - EKG Time of EKG reading by physician:: 15:19 EKG Read and Signed by:: Cj Gonzalez EKG Interpretation (*Must complete 3 of following elements*): Abnormal Rate: 135 Rhythm: Sinus tach [place]: normal QRS: other (possible L atrial enlargement; cannot rule out inferior infarct) PA Interval: normal ST Wave: normal Attestation - Physician/ AMY Attestation Patient care was provided by Advanced Practice Provider:: Yes Advanced Practice Provider:: Jean-Claude Pérez Advanced Practice Provider documentation review:: The Mid-level provider documentation, treatment plan and medical decision making was reviewed by the physician who agrees with all treatment and medical decision making by the MLP. The physician spent face to face time with patient:: No Advanced Practice Provider documentation review:: Supervising physician onsite a nd consulted in the evaluation and care of this patient. The physician did not have a face to face encounter with the patient. This chart was documented by the indicated scribe, (Magdalena Lopez Scribe) and accurately reflects the services I performed and decisions made by me, Cj oGnzalez MD, as attested by the provider's signature.
[2018-11-02] MEDS ORDERED: ZANAFLEX PO SCH (17:00)
--- NOTE | 2018-11-02 17:18 | HISTORY AND PHYSICAL ---
PRIMARY CARE PROVIDER: Dr. Cj Anaya. GENERAL SURGEON: Dr. Claudio Wright. CHIEF COMPLAINT: Nausea, vomiting, diarrhea, abdominal pain, and no appetite. HISTORY OF PRESENT ILLNESS: Mr. Castillo is a 37-year-old male who is well known to our service with an extensive history of uncontrolled diabetes, multiple admissions to the hospital because of diabetes related complications. He was previously discharged from our facility on 09/15/2018 after being found to be septic secondary to soft tissue infection and osteomyelitis of the left foot. He underwent an I D of the left foot and left 2nd metatarsal head amputation and placement of a wound VAC due to osteomyelitis of the 2nd metatarsal head and soft tissue infection. He has been on IV antibiotics since his discharge. They were finished last . He follows up with Dr. Claudio [facility] . His home health also ran out last with his antibiotics. He states he has been compliant with his diet as well as taking his insulin. He states since Wednesday he has been having nausea, vomiting, and diarrhea, low-grade subjective fever and chills. He states his blood sugars have been ranging anywhere from 200-400. He does complain of burning in his stomach that goes up into his throat. Workup in the ED revealed he was in DKA. His blood sugar was 935. Chest x-ray showed no acute disease. We are awaiting a CT of the abdomen and pelvis. He did have an elevated lipase at 159. His urinalysis is negative for bacteria. His plasma lactate is 1.6. No obvious source of infection. We will transfer him to [place] ICU on the DKA protocol to continue on insulin drip. PAST MEDICAL HISTORY: 1. Left foot osteomyelitis status post I D of the left foot with left 2nd metatarsal head amputation with placement of wound VAC due to osteomyelitis of the 2nd metatarsal head and soft tissue infection. He was also on IV antibiotics. He was taken off the antibiotics on , as well as the wound VAC was removed. His wound is healing well. It does not appear to be reinfected. Edges are approximated. There is no redness, no oozing. 2. Uncontrolled diabetes mellitus type 2. 3. Medical noncompliance. 4. Hypertension. 5. Nicotine dependence. PAST SURGICAL HISTORY: 1. I D of the left foot with left 2nd metatarsal head amputation, placement of wound VAC due to osteomyelitis of the 2nd metatarsal head and soft tissue infection back in August of 2018. 2. Multiple amputations on the left foot. He had the 1st and 2nd amputations on 08/13/2018. ALLERGY: Sulfa and vancomycin. FAMILY HISTORY: Grandparents are positive for coronary artery disease. Father in 2016 related to sepsis. SOCIAL HISTORY: The patient used to be a smoker and a drinker, but he has stopped all of these. REVIEW OF SYSTEMS: A 14 point review of systems completely negative except for those mentioned in the HPI. HOME MEDICATIONS: 1. Catapres 0.1 mg p.o. b.i.d. 2. NovoLog 1 dose subcutaneously t.i.d. 3. Remeron 30 mg p.o. at bedtime. 4. 4 mg p.o. t.i.d. 5. Ambien 10 mg p.o. at bedtime p.r.n. 6. Ativan 1 mg p.o. t.i.d. p.r.n. 7. Icar C 1 each p.o. b.i.d. 8. Lisinopril 30 mg p.o. daily. 9. Criders 7.5/325 one each p.o. q.6 hours p.r.n. 10. Norvasc 5 mg p.o. b.i.d. 11. Protonix 40 mg p.o. daily. 12. Basaglar 70 units subcutaneously b.i.d. PHYSICAL EXAMINATION: VITAL SIGNS: Temperature 96.9 degrees, heart rate 137, respirations 22, blood pressure 156/108, O2 is 98% on room air. GENERAL: Mr. Castillo is an unkempt-appearing, 37-year-old male who is lying on the stretcher, in no acute distress. HEENT: Atraumatic, normocephalic. PERRL. NECK: Supple. Trachea midline. CV: S1, S2 appreciated. No murmurs, gallops, rubs noted. RESPIRATORY: Lungs are clear. Equal chest excursion. Nonlabored breathing. GI: Soft. Tender to the epigastric region. Positive bowel sounds 4 quadrants. EXTREMITIES: No clubbing. No cyanosis. SKIN: The patient does have his left foot wrapped. His wounds are approximated and healing. There is nothing is oozing and it is intact. NEUROLOGIC: No focal deficits noted. He is alert and oriented. Follows commands. Moves all extremities. DIAGNOSTIC DATA: Chest x-ray shows no evidence of acute cardiac or pulmonary disease. LABORATORY DATA: White count 12, hemoglobin and hematocrit 12 and 34, platelet count is 514,000. Blood gas, pH 7.30, pCO2 24, PO2 107, base excess -13.1, O2 saturation 99% on room air. Chemistry: Sodium 127, potassium 3.6, anion gap of 30, BUN 47, creatinine 1.7, blood glucose is 935, T bilirubin 0.31, AST 6, ALT 7, alkaline phosphatase 121. Troponin less than 0.010. Lipase 159. Plasma lactate is 1.6. Lactate on ABG 1. ASSESSMENT AND PLAN: 1. Diabetic ketoacidosis in a patient with uncontrolled diabetes mellitus type 2. We will place him on the DKA protocol. Continue with IV insulin and aggressive IV hydration. The patient has agreed to be transferred to [place] secondary to limited beds available at [facility]. He has been accepted by Dr. Arauz. We have placed the DKA protocol on his chart. We will try him on clear liquids. He is asking for Sprite or Sprite Zero and has tolerated ice chips. 2. Nausea, vomiting, diarrhea, and abdominal pain. We will continue with antiemetics. Check a KUB. Check stool studies for C. difficile, WBCs, ova and parasites. 3. Acute kidney injury secondary to dehydration. We will continue with IV fluids aggressively and will recheck in the a.m. 4. Numerous electrolyte abnormalities secondary to diabetic ketoacidosis. They will need to be replenished per the DKA protocol. 5. Hypertension. We will continue with his home medications. 6. Recent left diabetic foot infection with osteomyelitis status post amputation and wound VAC. Patient finished antibiotics this past . Again, wound is healing. The wound edges are approximated. There is no oozing. No redness. He follows with Dr. Wright at the wound clinic. 7. Gastroesophageal reflux disease. Will continue PPI b.i.d. 8. Medical noncompliance. Per patient, he has been taking all medications as prescribed, as well as adhering to his diabetic diet. 9. Methicillin-resistant Staphylococcus aureus history. 10. Nicotine dependence. 11. Further recommendation to follow physician evaluation, laboratory data, and diagnostic data. 12. Disposition. Patient will be transferring to [place] ICU secondary to a bed shortage at [facility]. He will be transferred to Dr. Arauz. Dictated by RAMÓN Roman for Quique Aguila MD cc: MD Cj Hoyt MD I agree with most of the components of history, physical, assessment and plan. A separate addendum has been dictated. I talked with the ER nurse about continuing him on IV fluids according to DKA protocol and give him potassium. Patient would be transferred to [facility]. SHUN
--- NOTE | 2018-11-02 17:49 | HISTORY AND PHYSICAL ---
Addendum to history and physical dictated by the nurse practitioner. I agree with most components of history, physical, assessment and plan. HISTORY OF PRESENT ILLNESS: In brief, Mr. Castillo is a 37-year-old man with previous history of insulin-dependent diabetes mellitus type 1. Comes in with about 4 days history of nausea, vomiting, abdominal pain, and malaise, which got worse over last 48 hours. The patient has been on intravenous and p.o. antibiotics for left foot second toe amputation site wound infection and had started experiencing diarrhea last week. He was discharged on Ancef and levofloxacin in August 2018. He states he has been taking his insulin regularly, but also mentions that he was unable to come out of bed and was feeling very weak and he was also experiencing drowsiness. In the emergency room, he was found to have tachycardia with lab suggestive of DKA. He would be admitted for further management. SUBJECTIVE: I went to the bedside, evaluated patient by myself. He is complaining of abdominal cramps. He has not had vomiting episode since he has been in this emergency room. I explained to him about the bed situation. I explained to him about his clinical condition, possible pathogenesis and the fact that we may not have bed available for him. He agreed to go to the [facility] for further management. On noticing ER MAR, it looks like he was getting his first liter of intravenous fluid and he had already received 10 units of insulin intravenously while the BMP suggests a slightly lower potassium. I had informed the nurse in the emergency room that he should get his potassium so as to avoid hypokalemia. Currently, vitals suggest temperature of 96.9, tachycardia with heart rate 130, respiratory rate of 15, saturating 100% on room air. PHYSICAL EXAMINATION: GENERAL: Appears in mild to moderate distress. HEENT: Oral cavity is dry. LUNGS: Air entry bilaterally equal. No wheezing, rhonchi, crackles. CARDIOVASCULAR: S1, S2. Tachycardic. No murmur, rub, or gallop. ABDOMEN: Soft. Tenderness in lower quadrants in general without guarding or rigidity. EXTREMITIES: No lower extremity edema. LABS: Suggestive of leukocytosis. Microcytic anemia, thrombocytosis, normal coagulation. Acidosis with pH of 7.3, hyponatremia, hypochloremia, low bicarbonate, elevated anion gap, acute kidney injury, hyperglycemia and elevated lipase. ASSESSMENT: 1. Elevated anion gap metabolic acidosis with hyperglycemia, likely in the setting of diabetic ketoacidosis. 2. Acute kidney injury. 3. Thrombocytosis because of hemoconcentration. 4. Clinical volume depletion. 5. Suspected acute gastroenteritis versus antibiotic associated diarrhea. 6. Recent history of left foot second toe amputation site wound infection status post antibiotics completed 1 week ago. 7. Prior history of essential hypertension 8. History of anxiety. 9. History of insomnia. 10. History of chronic microcytic anemia. PLAN: I discussed with the emergency room team about giving him potassium. Continuing intravenous fluids as per the DKA protocol. The patient expressed his wishes to be transferred to [facility] considering the bed situation in [facility]. The patient's family member is at bedside. Plan of care discussed with the patient and the family member. All of their questions have been answered satisfactorily. cc: Quique Aguila MD MTDD
[2018-11-02] MEDS: NS 1,000 ML IV SCH ×3 (17:50→20:38)
--- NOTE | 2018-11-02 17:51 | Diag Imaging Result Doc PS360 ---
KUB ABDOMEN - 11/02/2018 INDICATION: abd pain COMPARISON: 06/22/2018 FINDINGS: There is moderate constipation primarily involving the ascending colon. No bowel obstruction or free air. There is advanced vascular calcification of the pelvic arteries particularly the internal iliac arteries. IMPRESSION: Moderate constipation. Electronically signed by Remigio Mcguire 11/02/2018 5:48 PM
--- NOTE | 2018-11-02 18:34 | Diag Imaging Result Doc PS360 ---
CT ABDOMEN/PELVIS W/O CONTRAST - 11/02/2018 INDICATION: abd pain COMPARISON: 06/23/2018 FINDINGS: The lung bases are clear and the heart size is normal. There is moderate constipation of the ascending colon and transverse colon. No bowel obstruction or inflammation. Urinary bladder, prostate, and rectum are normal. No radiodense renal stones. No hydronephrosis or hydroureter. There is vascular disease of the small arteries of the pelvis. Bony structures are intact. IMPRESSION: Constipation. No acute disease. This exam was performed using automated exposure control, adjustment of mA or kV according to patient size, and/or use of iterative reconstruction technique Electronically signed by Remigio Mcguire 11/02/2018 6:32 PM
[2018-11-02] MEDS: ZANAFLEX PO SCH (18:46)
[2018-11-02] MEDS: COMPAZINE IV PRN (18:47)
[2018-11-02] MEDS: PROTONIX IV SCH (18:47)
[2018-11-02] MEDS: SODIUM CHLORIDE 0.9% INJ SCH (18:47)
[2018-11-02] MEDS: HEPARIN SUBQ SCH (18:48)
[2018-11-02 19:46] LABS: AGAP 28; BUN 36 mg/dL (8-22); CHLORIDE 95 mmol/L (98-107); COSMO 298; CREATININE 1.2 mg/dL (0.7-1.2); ESTIMATED GFR > 60; GLUCOSE 418 mg/dL (70-104); MAGNESIUM 2.4 mg/dL (1.5-2.7); POTASSIUM 2.6 mmol/L (3.5-5.1); SODIUM 136 mmol/L (136-145); TCO2 13 mmol/L (25-35)
[2018-11-02 20:22] LABS: BE -5.4 mmoll (-3.0-3.0); BLOOD TYPE ARTERIAL; HCO3-(ACT) 20.7 mmoll (20.0-26.0); METHB 1.4 % (0.0-1.5); O2(CT) 11.8 mL/dL (15.0-23.0); O2HB 95.5 % (95.0-99.0); PCO2(98.6) 31 mmHg (35-45); PO2(98.6) 88 mmHg (60-100); SAMPLE BLOOD; SAO2 99.5 % (95.0-100.0); THB 8.7 g/dL (11.5-17.4); pH(98.6) 7.39 (7.35-7.45)
[2018-11-02 20:32] LABS: ALLEN TEST YES; MODALITY ROOM AIR
[2018-11-02] MEDS ORDERED: REMERON PO SCH (21:00)
[2018-11-02] MEDS: 1/2 NS 1,000 ML IV SCH (21:34)
[2018-11-02] MEDS: ZOFRAN IV PRN (23:46)
[2018-11-02] MEDS: DEMEROL IV PRN (23:46)
[2018-11-02] MEDS: NORVASC PO SCH (23:46)
[2018-11-02] MEDS: REMERON PO SCH (23:46)
[2018-11-03 01:10] LABS: BE -9.4 mmoll (-3.0-3.0); BLOOD TYPE ARTERIAL; HCO3-(ACT) 17.5 mmoll (20.0-26.0); METHB 1.7 % (0.0-1.5); O2(CT) 10.5 mL/dL (15.0-23.0); O2HB 90.5 % (95.0-99.0); PCO2(98.6) 23 mmHg (35-45); PO2(98.6) 145 mmHg (60-100); SAMPLE BLOOD; SAO2 99.8 % (95.0-100.0)
[2018-11-03 01:14] LABS: ALLEN TEST YES; MODALITY ROOM AIR
[2018-11-03 02:18] LABS: AGAP 21; BUN 30 mg/dL (8-22); CALCIUM 7.2 mg/dL (8.8-10.2); CHLORIDE 99 mmol/L (98-107); COSMO 282; ESTIMATED GFR > 60; GLUCOSE 233 mg/dL (70-104); MAGNESIUM 2.1 mg/dL (1.5-2.7); PHOSPHORUS 1.2 mg/dL (2.7-4.5); POTASSIUM 3.9 mmol/L (3.5-5.1); SODIUM 134 mmol/L (136-145); TCO2 14 mmol/L (25-35)
[2018-11-03] MEDS: POTASSIUM CHLORIDE 20 MEQ/SWI 20 MEQ/100 ML IVPB IV PRN ×5 (02:30→22:38)
[2018-11-03] MEDS: COMPAZINE IV PRN ×2 (04:32→22:28)
[2018-11-03] MEDS: SODIUM CHLORIDE 0.9% INJ SCH (04:32)
[2018-11-03] MEDS: PROTONIX IV SCH ×2 (04:32→16:38)
[2018-11-03] MEDS: DEMEROL IV PRN ×4 (04:32→22:28)
[2018-11-03] MEDS: 1/2 NS 1,000 ML IV SCH ×4 (05:09→17:22)
[2018-11-03 07:24] LABS: ESTIMATED GFR > 60
[2018-11-03 07:27] LABS: AGAP 23; BUN 27 mg/dL (8-22); CALCIUM 7.5 mg/dL (8.8-10.2); CHLORIDE 97 mmol/L (98-107); COSMO 282; CREATININE 1.1 mg/dL (0.7-1.2); GLUCOSE 251 mg/dL (70-104); MAGNESIUM 2.1 mg/dL (1.5-2.7); PHOSPHORUS 1.1 mg/dL (2.7-4.5); SODIUM 134 mmol/L (136-145); TCO2 14 mmol/L (25-35)
[2018-11-03] MEDS: ZOFRAN IV PRN (08:28)
[2018-11-03] MEDS: ZANAFLEX PO SCH ×3 (08:29→16:38)
[2018-11-03] MEDS: NORVASC PO SCH (08:29)
[2018-11-03] MEDS ORDERED: PROTONIX PO SCH (09:00)
[2018-11-03] MEDS ORDERED: NORVASC PO SCH (09:00)
[2018-11-03] MEDS ORDERED: PRINIVIL PO SCH ×2 (09:00)
[2018-11-03] MEDS: D5 NS 1,000 ML IV SCH ×3 (09:23→16:16)
[2018-11-03] MEDS: HEPARIN SUBQ SCH (09:24)
[2018-11-03] MEDS ORDERED: ZOFRAN ODT PO PRN (09:27)
[2018-11-03 09:46] LABS: ESTIMATED GFR > 60
[2018-11-03 09:50] LABS: AGAP 23; BUN 23 mg/dL (8-22); CALCIUM 7.6 mg/dL (8.8-10.2); CHLORIDE 97 mmol/L (98-107); COSMO 280; GLUCOSE 238 mg/dL (70-104); MAGNESIUM 2.1 mg/dL (1.5-2.7); POTASSIUM 3.7 mmol/L (3.5-5.1); SODIUM 134 mmol/L (136-145); TCO2 14 mmol/L (25-35)
[2018-11-03 09:56] LABS: PHOSPHORUS 0.7 mg/dL (2.7-4.5)
[2018-11-03] MEDS ORDERED: LACTULOSE PO PRN (10:06)
[2018-11-03] MEDS ORDERED: VANCOMYCIN IV PER PHARMACY MISC SCH (10:15)
[2018-11-03] MEDS ORDERED: COMPAZINE PO PRN (10:20)
[2018-11-03] MEDS ORDERED: SODIUM PHOSPHATE 40 MEQ in NS 250 ML IV ONE ×2 (10:30→18:48)
--- NOTE | 2018-11-03 10:31 | PROGRESS NOTE ---
DATE: 11/03/2018 SUBJECTIVE: Today he is weak, but doing okay. No major complaints. OBJECTIVE: Vital Signs: Blood pressure is 146/64, heart rate of 116, respiratory rate 17, temperature 98.2 degrees. Cardiovascular: Regular rate and rhythm. Pulmonary: Bilateral breath sounds. Clear to auscultation. GI: Soft, nontender, nondistended. Bowel sounds are positive. LABORATORY DATA: I do not have any white count today. The pH shows up to 7.4. Sodium 134, creatinine 1, phos 0.7. Sugars are still in the 200s. His gap is still 23. His bicarbonate is 14. PROBLEM LIST: 1. Diabetic ketoacidosis is still not under control. 2. Hypophosphatemia. We will supplement and follow. 3. Hypertension. We will continue his regular medications. He is having some ectopy, but that may be related to his electrolytes. 4. History of diabetic foot ulcer with methicillin-resistant Staphylococcus aureus positivity, and he does have an elevated white count. He does seem to have a little bit of erythema, but no natalya drainage. I am going to get Surgery to just check on him while he is here. Continue wound care. We will empirically start vancomycin until we feel like we have made sure there is no active infection. DISPOSITION: Pending his clinical status, he is still on an insulin drip and DKA. CRITICAL CARE TIME: A 32 minute critical care time for DKA on IV insulin. cc: Lang Arauz MD
--- NOTE | 2018-11-03 10:41 | Diag Imaging Result Doc PS360 ---
EXAM: FOOT 2 VIEWS LEFT - 11/03/2018 HISTORY: recent cellulitis/amputation TECHNIQUE: Portable left foot two views COMPARISON: 09/08/2018 FINDINGS: There has been prior amputation of the great toe, second toe, and the distal portion of the first metatarsal. There are a few small calcifications adjacent to the distal margin of the second metatarsal similar to prior. There has been possible development of mild erosion of the distal margin of the distal head of second metatarsal. There are no other new erosive or destructive changes identified. There is no fracture or dislocation identified. There are atherosclerotic calcifications noted. IMPRESSION: Possible development of mild erosion of the distal margin of the distal head of the second metatarsal. The possibility of early osteomyelitis at the distal head of second metatarsal cannot be excluded. Electronically signed by William Vail 11/03/2018 10:39 AM
[2018-11-03] MEDS: CUBICIN 500 MG in NS 100 ML IV SCH (10:59)
[2018-11-03] MEDS: MIRALAX PO SCH (11:08)
[2018-11-03 13:10] LABS: AGAP 19; BUN 22 mg/dL (8-22); CALCIUM 7.6 mg/dL (8.8-10.2); CHLORIDE 99 mmol/L (98-107); COSMO 279; ESTIMATED GFR > 60; GLUCOSE 194 mg/dL (70-104); MAGNESIUM 2.1 mg/dL (1.5-2.7); PHOSPHORUS 1.2 mg/dL (2.7-4.5); POTASSIUM 3.5 mmol/L (3.5-5.1); SODIUM 135 mmol/L (136-145); TCO2 18 mmol/L (25-35)
[2018-11-03] MEDS ORDERED: NS 500 ML IV ONE ×2 (14:58→18:49)
[2018-11-03] MEDS ORDERED: NS 1,000 ML IV ONE (17:01)
[2018-11-03 17:27] LABS: AGAP 16; BUN 25 mg/dL (8-22); CALCIUM 7.3 mg/dL (8.8-10.2); CHLORIDE 99 mmol/L (98-107); COSMO 275; CREATININE 1.3 mg/dL (0.7-1.2); ESTIMATED GFR > 60; GLUCOSE 205 mg/dL (70-104); MAGNESIUM 1.9 mg/dL (1.5-2.7); PHOSPHORUS 1.8 mg/dL (2.7-4.5); POTASSIUM 3.3 mmol/L (3.5-5.1); SODIUM 132 mmol/L (136-145); TCO2 17 mmol/L (25-35)
[2018-11-03] MEDS ORDERED: DOPAMINE 800 MG/D5W 800 MG/500 ML IV.SOLN IV SCH (19:00)
[2018-11-03 22:16] LABS: AGAP 16; BUN 27 mg/dL (8-22); CHLORIDE 103 mmol/L (98-107); COSMO 277; CREATININE 1.3 mg/dL (0.7-1.2); ESTIMATED GFR > 60; GLUCOSE 196 mg/dL (70-104); MAGNESIUM 1.8 mg/dL (1.5-2.7); PHOSPHORUS 2.3 mg/dL (2.7-4.5); POTASSIUM 3.8 mmol/L (3.5-5.1); SODIUM 133 mmol/L (136-145); TCO2 14 mmol/L (25-35)
[2018-11-03] MEDS: REMERON PO SCH (22:16)
[2018-11-03] MEDS ORDERED: CALCIUM GLUCONATE 1 GM in NS 50 ML IV ONE (23:29)
[2018-11-04] MEDS: D5 NS 1,000 ML IV SCH ×3 (00:13→17:20)
[2018-11-04] MEDS: 1/2 NS 1,000 ML IV SCH ×3 (00:15→17:11)
[2018-11-04 01:33] LABS: ESTIMATED GFR > 60
[2018-11-04 02:02] LABS: AGAP 16; BUN 25 mg/dL (8-22); CALCIUM 7.5 mg/dL (8.8-10.2); CHLORIDE 106 mmol/L (98-107); COSMO 282; CREATININE 1.1 mg/dL (0.7-1.2); GLUCOSE 158 mg/dL (70-104); MAGNESIUM 2.5 mg/dL (1.5-2.7); PHOSPHORUS 2.5 mg/dL (2.7-4.5); POTASSIUM 3.8 mmol/L (3.5-5.1); SODIUM 137 mmol/L (136-145); TCO2 15 mmol/L (25-35)
[2018-11-04] MEDS: POTASSIUM CHLORIDE 20 MEQ/SWI 20 MEQ/100 ML IVPB IV PRN (02:54)
[2018-11-04] MEDS: COMPAZINE IV PRN ×5 (03:11→21:25)
[2018-11-04] MEDS: DEMEROL IV PRN ×5 (03:11→21:26)
[2018-11-04] MEDS: PROTONIX IV SCH ×2 (04:14→17:12)
--- NOTE | 2018-11-04 05:37 | GENERAL SURGERY CONSULTATION ---
DATE: 11/04/2018 REQUESTING PHYSICIAN: Hospitalist service. CONSULT REQUEST: Evaluate left foot wound. HISTORY OF PRESENT ILLNESS: A 37-year-old male, well known to me, who has uncontrolled diabetes, who had previously done amputation on his left foot. His wound has been healing and we have been [facility]. He came in with nausea, vomiting, and what looks like diabetic ketoacidosis. I was asked to weigh an opinion. Patient has got no complaint. He was seen by Wound Care and the wound overall seems to be improving. PAST MEDICAL HISTORY: 1. Uncontrolled diabetes. 2. Medical noncompliance. 3. Hypertension. 4. Nicotine dependence. PAST SURGICAL HISTORY: Includes previous amputations on the left side. ALLERGIES: Sulfa, vancomycin. FAMILY HISTORY: Positive for coronary artery disease. HOME MEDICATIONS: Reviewed. SOCIAL HISTORY: Former smoker and drinker. REVIEW OF SYSTEMS: A full 10-point review of systems obtained, negative except as specified in HPI. PHYSICAL EXAMINATION: Vital Signs: Patient is currently afebrile. His vital signs stable. General: No acute distress. HEENT: Normocephalic, atraumatic. Pupils equal, round, react to light. Mucous membranes moist. Oropharynx benign. Neck: Supple. Trachea midline. Cardiovascular: Regular rate and rhythm. Lungs: Grossly clear. Abdomen: Soft, nontender, nondistended. Extremities: Wound to left lower extremity overall appears to be essentially healed. No signs of erythema. Vascular: All extremities perfused. Neurologic: Grossly intact. Skin: Wound as noted above. LABORATORY: Most recent blood glucose is 176. ASSESSMENT/PLAN: A 37-year-old diabetic ketoacidosis, now with healing left foot wound. 1. Diabetic ketoacidosis. At this time, defer to the hospitalist. Patient seems to be doing better. 2. Left foot amputation site. From a surgical point of view it looks good, looks like it is healing. Nothing more to add. My group to be available over the weekend if needed. cc: Claudio Wright MD
[2018-11-04] MEDS: LOVENOX SUBQ SCH (06:16)
[2018-11-04 06:34] LABS: ESTIMATED GFR > 60
[2018-11-04 06:35] LABS: AGAP 19; BUN 19 mg/dL (8-22); CALCIUM 7.4 mg/dL (8.8-10.2); CHLORIDE 105 mmol/L (98-107); COSMO 280; CREATININE 0.9 mg/dL (0.7-1.2); GLUCOSE 167 mg/dL (70-104); MAGNESIUM 2.1 mg/dL (1.5-2.7); PHOSPHORUS 1.6 mg/dL (2.7-4.5); POTASSIUM 4.1 mmol/L (3.5-5.1); SODIUM 137 mmol/L (136-145); TCO2 13 mmol/L (25-35)
[2018-11-04] MEDS ORDERED: CALCIUM GLUCONATE 1 GM in NS 50 ML IV ONE (07:18)
[2018-11-04 07:51] LABS: BASO# 0.01 X1000 (0.0-0.2); BASO% 0.1 % (0.0-0.8); EOS# 0.13 X1000 (0.0-0.7); EOS% 1.5 % (0.0-10.0); HEMOGLOBIN 8.3 g/dL (14.0-18.0); IMM GRAN# 0.07 X1000 (0.0-0.04); IMM GRAN% 0.8 % (0.0-0.5); LYMPH# 2.66 X1000 (1.2-3.4); LYMPH% 31.5 % (20.5-51.1); MCH 27.1 PG (27-31); MCHC 36.1 g/dL (33-37); MCV 75.2 FL (81-99); MONO# 0.94 X1000 (0.11-0.59); MONO% 11.1 % (1.7-9.3); NEUT# 4.64 X1000 (1.4-6.5); PLT 186 X1000 (130-400); RBC 3.06 XMIL (4.7-6.1); RDW 14.6 % (11.5-14.5); WBC 8.45 X1000 (4.8-10.8)
[2018-11-04] MEDS ORDERED: CALCIUM GLUCONATE ONE (07:51)
[2018-11-04 08:47] LABS: AGAP 18; BUN 16 mg/dL (8-22); CALCIUM 7.4 mg/dL (8.8-10.2); CHLORIDE 102 mmol/L (98-107); COSMO 277; CREATININE 0.8 mg/dL (0.7-1.2); ESTIMATED GFR > 60; GLUCOSE 205 mg/dL (70-104); MAGNESIUM 1.9 mg/dL (1.5-2.7); PHOSPHORUS 1.1 mg/dL (2.7-4.5); POTASSIUM 3.3 mmol/L (3.5-5.1); SODIUM 135 mmol/L (136-145); TCO2 15 mmol/L (25-35)
[2018-11-04] MEDS: MIRALAX PO SCH (08:56)
[2018-11-04] MEDS: ZANAFLEX PO SCH ×3 (08:56→17:12)
[2018-11-04] MEDS: CUBICIN 500 MG in NS 100 ML IV SCH (11:05)
[2018-11-04] MEDS ORDERED: KLOR-CON PO ONE (11:28)
[2018-11-04] MEDS ORDERED: SODIUM PHOSPHATE IV ONE (12:37)
[2018-11-04] MEDS ORDERED: NS IV ONE (12:37)
[2018-11-04] MEDS: ZOSYN 3.375 GM in NS 50 ML IV SCH ×3 (12:42→23:40)
--- NOTE | 2018-11-04 12:42 | PROGRESS NOTE ---
DATE: 11/04/2018 SUBJECTIVE: The patient states that he does not feel well this morning. OBJECTIVE: Vital Signs: Temperature 100.2 degrees, pulse 102 per minute, respiratory rate 22 per minute, blood pressure 157/72, pulse oximetry 100% on room air. General: The patient is alert and oriented x3. He does not appear to be in any acute distress. Cardiovascular System: First and second heart sounds are audible without any murmurs or gallops. Respiratory System: Bilateral lung air entry is moderately decreased but there are no rales or rhonchi. Gastrointestinal: Abdomen is soft and nondistended. Normal bowel sounds are present. Musculoskeletal System: Left foot toe amputation is noted with healing ulcers and no acute infection signs are seen. DIAGNOSTIC DATA: CBC shows hemoglobin and hematocrit of 8.3 and 23.0. In comparison, his hemoglobin and hematocrit were 12.1 and 34.3 two days ago. Arterial blood gases done yesterday showed pH of 7.40, pCO2 23, and pO2 145. Chemistry done this morning shows sodium levels of 135, potassium level 3.3, chloride 102, CO2 15, with anion gap slightly increased at 18. Phosphorus levels were found to be 1.1, and magnesium levels were found to be 1.9. Left foot x-ray done yesterday showed possible development of mild erosion of the distal margin of distal head of the 2nd metatarsal with the possibility of early osteomyelitis at the distal head of 2nd metatarsal bone. IMPRESSION: Diabetic ketoacidosis in this 37-year-old gentleman who appears to have early osteomyelitis of the left foot and has low-grade fever. He also has hypokalemia, hyponatremia, hypocalcemia, along with low phosphorus levels. PLAN: We are going to keep him on insulin infusion intravenously and check his glucose levels frequently as per protocol. I am going to give him IV phosphate and also potassium chloride for electrolyte replenishment. We are going to start him on Zosyn intravenously because of the possibility of osteomyelitis and the fact that he is having low-grade fever along with uncontrolled glucose levels. Further recommendations will be given as per hospital course. cc: Sirena Brownlee MD
[2018-11-04] MEDS ORDERED: SODIUM PHOSPHATE 30 MMOL in NS 250 ML IV ONE (13:10)
[2018-11-04] MEDS: SODIUM CHLORIDE 0.9% INJ SCH (17:12)
[2018-11-04] MEDS: ATIVAN PO PRN (21:25)
[2018-11-04] MEDS: TYLENOL PO PRN (21:25)
[2018-11-04] MEDS: REMERON PO SCH (21:25)
[2018-11-05] MEDS: D5 NS 1,000 ML IV SCH (00:19)
[2018-11-05] MEDS: 1/2 NS 1,000 ML IV SCH ×3 (01:35→14:45)
[2018-11-05] MEDS: DEMEROL IV PRN ×6 (02:05→23:09)
[2018-11-05] MEDS: COMPAZINE IV PRN ×6 (02:06→23:10)
[2018-11-05] MEDS: PROTONIX IV SCH ×2 (05:15→20:07)
[2018-11-05] MEDS: ZOSYN 3.375 GM in NS 50 ML IV SCH ×4 (05:15→23:10)
[2018-11-05] MEDS: LOVENOX SUBQ SCH (05:15)
[2018-11-05 06:24] LABS: BASO# 0.01 X1000 (0.0-0.2); BASO% 0.2 % (0.0-0.8); EOS# 0.16 X1000 (0.0-0.7); EOS% 2.6 % (0.0-10.0); HEMATOCRIT 20.9 % (42.0-52.0); HEMOGLOBIN 7.4 g/dL (14.0-18.0); IMM GRAN# 0.02 X1000 (0.0-0.04); IMM GRAN% 0.3 % (0.0-0.5); LYMPH% 30.3 % (20.5-51.1); MCHC 35.4 g/dL (33-37); MCV 76.3 FL (81-99); MONO# 0.52 X1000 (0.11-0.59); MONO% 8.3 % (1.7-9.3); MPV 10.2 FL (7.4-10.4); NEUT# 3.66 X1000 (1.4-6.5); NEUT% 58.3 % (42.2-75.2); PLT 221 X1000 (130-400); RBC 2.74 XMIL (4.7-6.1); RDW 14.6 % (11.5-14.5); WBC 6.27 X1000 (4.8-10.8)
[2018-11-05 06:52] LABS: AGAP 11; ALBUMIN 2.5 g/dL (3.5-5.0); ALKALINE PHOSPHATASE 58 U/L (32-122); BUN 7 mg/dL (8-22); CALCIUM 7.5 mg/dL (8.8-10.2); CHLORIDE 107 mmol/L (98-107); COSMO 283; CREATININE 0.6 mg/dL (0.7-1.2); ESTIMATED GFR > 60; GLUCOSE 198 mg/dL (70-104); GOT 9 U/L (10-34); GPT < 5 U/L (10-44); PHOSPHORUS 1.9 mg/dL (2.7-4.5); SODIUM 140 mmol/L (136-145); TCO2 22 mmol/L (25-35); TOTAL BILIRUBIN < 0.15 mg/dL (0.20-1.00); TOTAL PROTEIN 4.9 g/dL (6.3-8.3)
[2018-11-05] MEDS ORDERED: KLOR-CON PO ONE ×2 (08:43→14:00)
[2018-11-05] MEDS: ZANAFLEX PO SCH ×3 (09:08→17:21)
[2018-11-05] MEDS: MIRALAX PO SCH (09:09)
[2018-11-05] MEDS ORDERED: TRESIBA FLEXTOUCH U-100 SUBQ SCH (10:00)
[2018-11-05 10:15] LABS: INR 1.17; PROTIME 15.5 Seconds (11.0-16.0)
[2018-11-05] MEDS ORDERED: INSULIN PEN NEEDLES ONE (10:36)
[2018-11-05] MEDS ORDERED: NS 250 ML ONE (10:36)
[2018-11-05] MEDS: CUBICIN 500 MG in NS 100 ML IV SCH (10:40)
[2018-11-05] MEDS: HUMALOG (PARKWAY) SUBQ SCH ×3 (10:41→17:59)
--- NOTE | 2018-11-05 12:33 | PROGRESS NOTE ---
DATE: 11/05/2018 SUBJECTIVE: The patient denies having any acute complaints although he does feel a little better this morning. He does have generalized weakness. OBJECTIVE: Vital Signs: Temperature 98.2 degrees, pulse 98 per minute, respiratory rate 17 per minute, blood pressure 156/76, pulse oximetry 98% on room air. General: The patient is alert and oriented x3. He does not appear to be in any acute distress. Cardiovascular System: First and second heart sounds are audible without any murmurs or gallops. Respiratory System: No respiratory distress noted. Bilateral lung air entry is moderately decreased with no rales or rhonchi present on auscultation. Gastrointestinal: Patient is morbidly obese. Abdomen is soft and nontender. Normal bowel sounds are present. DIAGNOSTIC DATA: CBC shows hemoglobin of 7.4 and hematocrit 20.9. In comparison, his hemoglobin and hematocrit were hemoglobin 12.1 and hematocrit 34.3 two days ago. Yesterday, his hemoglobin and hematocrit had dropped to hemoglobin 8.3 and hematocrit 23.0. PT and INR are within normal limits and chemistry showed potassium level of 3.0. Rest of the comprehensive metabolic panel is nondiagnostic except for glucose levels of 198. Left foot x-ray done 2 days ago showed possible development of mild erosion of the distal margin of the distal head of the 2nd metatarsal with the possibility of early osteomyelitis. IMPRESSION: 1. Diabetic ketoacidosis that has now improved with anion gap reduced to 11. 2. Acute osteomyelitis of left foot. 3. Anemia of uncertain etiology for which stool for Hemoccult has been ordered but is pending at the time of this dictation. 4. Hypokalemia. 5. Hypophosphatemia that has now improved to 1.7. PLAN: The patient will be continued on broad-spectrum IV antibiotics including Zosyn and daptomycin. He will also be continued on IV fluids and I am going to discontinue his insulin drip since his diabetic ketoacidosis has improved. Instead I am going to start him on Tresiba 30 units subcutaneously every 24 hours and give him lispro insulin as per sliding scale every 4 hours as per protocol. He has been on D5 IV that will also be discontinued. I have reduced his IV fluid from 125 mL an hour to 100 mL an hour. He has significant hypokalemia, because of which 80 mEq of potassium chloride will be given to him today and we are going to repeat labs including CBC and BMP tomorrow morning. He is also having issues with IV access and, therefore, a PICC line has been ordered. We are going to closely monitor his hemoglobin and hematocrit and possibly give him blood transfusions if needed. He has been on Lovenox for venous thromboembolism prophylaxis and that will be now discontinued because of his significant anemia. Further recommendations will be given as per hospital course. cc: Sirena Brownlee MD
[2018-11-05 16:40] LABS: OCCULT BLOOD 1 POSITIVE (NEGATIVE)
[2018-11-05] MEDS ORDERED: PROTONIX 80 MG in NS 80 ML IV SCH (17:00)
[2018-11-05] MEDS: REMERON PO SCH (20:20)
--- NOTE | 2018-11-05 21:43 | GASTROENTEROLOGY CONSULTATION ---
DATE: 11/05/2018 REASON FOR CONSULTATION: Mr. Castillo was transferred from [facility] with complaints of GI bleed. The patient has seen Dr. Horne and Dr. Green. In fact, he had a similar presentation not too long ago. He has had EGD done recently. HISTORY OF PRESENT ILLNESS: This is a 37-year-old gentleman who has history of GI issues. Apparently he had similar problems earlier and had been scoped by Dr. Horne and Dr. Green. He tells me he was found to have severe esophagitis and gastroesophageal reflux disease. The patient tells me that he recently had amputation done and was doing well but apparently has not been feeling well. He got admitted to the hospital and was found to be in DKA. He was in [facility] and was noticed to have dropped his hemoglobin and hematocrit. He was transferred to ICU in [facility] and consult was obtained for GI bleed. The patient tells me that he has not been feeling well, has been nauseated; however, he has not had any vomiting. He was constipated for almost a week and he had a bowel movement today, and it was found to be dark but he did not have any melenic stool and did not notice any blood. He complains of burning pain in the epigastric area radiating towards the chest, but he denied dysphagia or odynophagia. His appetite has been fair. He has not been eating well. PAST MEDICAL HISTORY: Significant for diabetes and history of DKA; history of esophagitis and gastroesophageal disease; history of anemia; hypertension; history of osteomyelitis, status post amputation. MEDICATIONS: Prior to hospitalization he was on Norvasc, Catapres, [place], NovoLog, Basaglar, iron, Ativan, Remeron, Protonix, Zanaflex and Ambien. ALLERGIES: Vancomycin and sulfa medication. SOCIAL HISTORY: He is , has 3 children. Does not smoke. Does not drink. Does not use illicit drugs, but he does chew tobacco. FAMILY HISTORY: Noncontributory. REVIEW OF SYSTEMS: As per HPI as above. PHYSICAL EXAMINATION: On examination, very pleasant white male. He is conscious, alert and appears to be in no distress. Vital signs: Temperature 97.4 degrees, pulse 74 per minute and regular, breathing 17, blood pressure 101/54. Head is atraumatic, normocephalic. Eyes: Conjunctivae are normal. Sclerae anicteric. Nares are patent. No discharge. Mouth: Buccal mucosa is moist. Throat is normal. Neck is supple. No lymphadenopathy or thyromegaly. Chest bilaterally symmetrical. It is moving with respirations. Breath sounds audible bilaterally. No rhonchi or crepitations could be heard. Heart is regular. No murmur could be appreciated. Abdomen is full, soft. It is mildly tender in the epigastric area, but no rebound tenderness. No guarding noted. Bowel sounds are audible. No pedal edema, cyanosis or clubbing was noted. ADJUSTER LEADER is grossly intact. No sensory or motor deficit were noted. LABORATORY DATA: Labs were reviewed, which showed WBC is 6.27, hemoglobin 7.4 which on admission on 11/02 was 12.0. Hematocrit now is down to 20.9; hematocrit on admission was 34.3. MCV 96.3, platelets are 221,000. PT 15.5, INR 1.17. Sodium 140, potassium 3.6, chloride 107, bicarbonate is 22, BUN is 7, creatinine 0.6. Glucose 198, down from 418 on presentation. Transaminases are normal. IMPRESSION AND PLAN: This is a 37-year-old gentleman, diabetic with history of osteomyelitis and status post amputation, has presented with diabetic ketoacidosis. Has had some nausea and vomiting. Was found to have dropped his hemoglobin and hematocrit from 12.1 and 34.3 to 7.4 and 20.9, respectively. His stool was heme-positive as well; however, BUN and creatinine are normal. That goes against blood in the gut; however, the drop in his hemoglobin and hematocrit could be gastrointestinal bleed but with hemoconcentration on presentation. Now after hydration his hemoglobin and hematocrit may have dropped because of some of the hemodilution also. At this point although his hemoglobin and hematocrit has dropped, he is not actively bleeding now and he is hemodynamically stable. I will continue his proton pump inhibitor. Recheck hemoglobin and hematocrit, transfuse if necessary to stabilize, and proceed with esophagogastroduodenoscopy, most likely Wednesday or Wednesday, or earlier if he shows signs of active bleeding and that will be for therapeutic purposes. The rest of the medical treatment as per team. I will continue to follow the patient during the weekend, and on Wednesday he will be picked up by Dr. Horne and Dr. Green. cc: Trevor Bains MD
[2018-11-05] MEDS ORDERED: SODIUM PHOSPHATE 30 MMOL in D5W 250 ML IV PRN (22:54)
[2018-11-05] MEDS ORDERED: SODIUM BICARBONATE 8.4% 50 MEQ in D5W 250 ML IV PRN (22:54)
[2018-11-05] MEDS: ATIVAN PO PRN (23:09)
[2018-11-05] MEDS: HUMALOG SUBQ SCH (23:09)
[2018-11-05] MEDS: AMBIEN PO PRN (23:09)
[2018-11-06] MEDS: TRESIBA FLEXTOUCH U-100 SUBQ SCH (01:00)
[2018-11-06] MEDS: 1/2 NS 1,000 ML IV SCH ×3 (01:27→20:21)
[2018-11-06] MEDS: TYLENOL PO PRN (04:01)
[2018-11-06] MEDS: ATIVAN PO PRN ×3 (04:01→23:42)
[2018-11-06] MEDS: PROTONIX IV SCH ×2 (04:01→17:00)
[2018-11-06] MEDS: COMPAZINE IV PRN (04:01)
[2018-11-06] MEDS: DEMEROL IV PRN ×3 (04:01→20:20)
[2018-11-06] MEDS: HUMALOG SUBQ SCH ×5 (04:02→20:42)
[2018-11-06] MEDS: ZOSYN 3.375 GM in NS 50 ML IV SCH ×2 (05:48→12:00)
[2018-11-06 06:32] LABS: BASO# 0.01 X1000 (0.0-0.2); BASO% 0.2 % (0.0-0.8); EOS# 0.11 X1000 (0.0-0.7); EOS% 1.9 % (0.0-10.0); HEMATOCRIT 21.2 % (42.0-52.0); HEMOGLOBIN 7.1 g/dL (14.0-18.0); IMM GRAN# 0.03 X1000 (0.0-0.04); IMM GRAN% 0.5 % (0.0-0.5); LYMPH% 24.4 % (20.5-51.1); MCH 26.3 PG (27-31); MCHC 33.5 g/dL (33-37); MCV 78.5 FL (81-99); MONO# 0.67 X1000 (0.11-0.59); MONO% 11.7 % (1.7-9.3); MPV 10.6 FL (7.4-10.4); NEUT# 3.52 X1000 (1.4-6.5); NEUT% 61.3 % (42.2-75.2); PLT 276 X1000 (130-400); RDW 14.4 % (11.5-14.5); WBC 5.74 X1000 (4.8-10.8)
[2018-11-06 06:54] LABS: AGAP 12; BUN 2 mg/dL (8-22); CHLORIDE 107 mmol/L (98-107); COSMO 280; CREATININE 0.6 mg/dL (0.7-1.2); ESTIMATED GFR > 60; GLUCOSE 152 mg/dL (70-104); IRON SATURATION 10 %; PHOSPHORUS 1.7 mg/dL (2.7-4.5); POTASSIUM 3.3 mmol/L (3.5-5.1); SODIUM 141 mmol/L (136-145); TCO2 22 mmol/L (25-35); TIBC 204 ug/dL; TOTAL IRON 21 ug/dL (53-167); UNBOUND IRON 183 ug/dL (112-346)
[2018-11-06 07:18] LABS: LDH 133 U/L (135-225)
[2018-11-06 07:25] LABS: FERRITIN 101 ng/mL (30-400)
[2018-11-06] MEDS: MIRALAX PO SCH (08:11)
[2018-11-06] MEDS: ZANAFLEX PO SCH ×3 (08:11→17:00)
[2018-11-06] MEDS: NORCO-7.5 PO PRN ×3 (09:29→23:43)
[2018-11-06] MEDS ORDERED: CUBICIN 500 MG in NS 100 ML IV SCH (11:00)
[2018-11-06] MEDS ORDERED: POTASSIUM CHLORIDE 40 MEQ/SWI 40 MEQ/100 ML IVPB IV ONE (11:21)
--- NOTE | 2018-11-06 13:00 | GASTROENTEROLOGY PROGRESS NOTE ---
DATE: 11/06/2018 SUBJECTIVE: Patient denies any visible active bleeding overnight. Today hemoglobin 7.1 and hematocrit 21.2. Patient has not received packed red blood cells yet. OBJECTIVE: Vital Signs: Temperature 98.6 degrees, pulse 73, respirations 18, blood pressure 111/62. General: Patient is awake and alert. HEENT: Conjunctiva pale. Skin: Pale. Abdomen: Patient complains of abdominal tenderness. LABORATORY: Hematology: WBC 5.74 hemoglobin 7.1, hematocrit 21.2, MCV 78.5, platelets 276,000. Chemistry: Sodium 141, potassium 3.3, chloride 107, CO2 of 22, BUN 2, creatinine 0.6, glucose 152. ASSESSMENT AND PLAN: 1. Gastrointestinal (GI) bleed. 2. Anemia. Patient will receive 2 units of packed red blood cells today. 3. Diabetic ketoacidosis. Continue current management. 4. Osteomyelitis. Following with [facility]. PLAN: Continue to monitor hemoglobin and hematocrit. Transfuse 2 units of packed red blood cells today. Patient has been seen by Dr. Green. We will tentatively place him for an EGD on the schedule for tomorrow. Further plans to be made as needed. I have discussed this case with Dr. Bains. Dictated by RAMÓN Ramirez for Trevor Bains MD cc: RAMÓN Turner MD [facility]
[2018-11-06] MEDS ORDERED: POTASSIUM PHOSPHATE 40 MEQ in NS 250 ML IV ONE (16:30)
--- NOTE | 2018-11-06 16:39 | PROGRESS NOTE ---
DATE: 11/06/2018 SUBJECTIVE: The patient has not had any major bleeding, but he has had some bleeding overnight. No further hematemesis. OBJECTIVE: Blood pressure is 117/76, heart rate 67, respiratory rate 16, temperature was 98.4. Cardiovascular: Regular rate and rhythm. Pulmonary: Bilateral breath sounds. Clear to auscultation. Gastrointestinal: Soft, nontender, nondistended. Bowel sounds are positive. LABORATORY DATA: White count is 5, hemoglobin and hematocrit is down to 7 and 21, platelets of 276,000. Potassium is 3.3, phosphorus of 1.7. LDH was low at 133. B12 and folate were fine. PROBLEM LIST: 1. GI bleed, presumably NSAID related. We will continue to follow. We will continue treatment. Transfuse, I agree with 2 units, and today he never got blood last night. It was ordered. GI is following. Anticipate possible EGD tomorrow, then +/- colonoscopy subsequently. 2. Diabetic ketoacidosis. That has also resolved. He is on Lantus. We will continue his treatment and follow. 3. He has been on antibiotics for osteo, but I do not think he actually has any osteomyelitis at this point. I am going to go ahead and stop his vancomycin. His foot looks well. It looks healed. I am not sure we need to continue antibiotics at the risk of having side effects from antibiotics, so I am going to hold them for the time being. Will get Surgery to re-evaluate him and if they think the wound looks okay, we do not need to pursue further. 4. Disposition: Pending his clinical status, but need to get his bleeding issues stabilized before we consider doing any other things. We will continue to follow. cc: Lang Arauz MD
[2018-11-06] MEDS: REMERON PO SCH (20:20)
[2018-11-06] MEDS: AMBIEN PO PRN (23:43)
[2018-11-07] MEDS: DEMEROL IV PRN ×6 (00:43→21:09)
[2018-11-07] MEDS: PROTONIX IV SCH ×2 (04:29→16:55)
[2018-11-07] MEDS: 1/2 NS 1,000 ML IV SCH ×2 (06:23→15:44)
[2018-11-07] MEDS: HUMALOG SUBQ SCH ×4 (06:24→20:00)
[2018-11-07 06:42] LABS: BASO# 0.02 X1000 (0.0-0.2); BASO% 0.3 % (0.0-0.8); EOS# 0.19 X1000 (0.0-0.7); EOS% 3.1 % (0.0-10.0); HEMATOCRIT 28.9 % (42.0-52.0); HEMOGLOBIN 9.9 g/dL (14.0-18.0); IMM GRAN# 0.02 X1000 (0.0-0.04); IMM GRAN% 0.3 % (0.0-0.5); LYMPH# 1.82 X1000 (1.2-3.4); LYMPH% 29.9 % (20.5-51.1); MCH 27.6 PG (27-31); MCHC 34.3 g/dL (33-37); MCV 80.5 FL (81-99); MONO# 0.92 X1000 (0.11-0.59); MONO% 15.1 % (1.7-9.3); MPV 10.5 FL (7.4-10.4); NEUT# 3.11 X1000 (1.4-6.5); NEUT% 51.3 % (42.2-75.2); PLT 373 X1000 (130-400); RBC 3.59 XMIL (4.7-6.1); RDW 14.9 % (11.5-14.5); WBC 6.08 X1000 (4.8-10.8)
[2018-11-07 07:05] LABS: MAGNESIUM 1.3 mg/dL (1.5-2.7); PHOSPHORUS 2.7 mg/dL (2.7-4.5)
[2018-11-07 07:33] LABS: AGAP 13; BUN 2 mg/dL (8-22); CALCIUM 8.4 mg/dL (8.8-10.2); CHLORIDE 102 mmol/L (98-107); COSMO 274; CREATININE 0.5 mg/dL (0.7-1.2); ESTIMATED GFR > 60; GLUCOSE 109 mg/dL (70-104); POTASSIUM 3.1 mmol/L (3.5-5.1); SODIUM 139 mmol/L (136-145); TCO2 24 mmol/L (25-35)
[2018-11-07] MEDS: COMPAZINE IV PRN ×3 (08:18→21:10)
[2018-11-07] MEDS ORDERED: DIPRIVAN 1% ONE ×2 (08:22→08:52)
[2018-11-07] MEDS ORDERED: XYLOCAINE-MPF 2% ONE (08:23)
[2018-11-07] MEDS: CARAFATE LIQUID PO SCH ×3 (09:41→21:08)
[2018-11-07] MEDS: ZANAFLEX PO SCH ×3 (09:42→16:55)
[2018-11-07] MEDS: MIRALAX PO SCH (09:42)
--- NOTE | 2018-11-07 09:59 | OPERATIVE NOTE ---
PROCEDURE DATE: 11/07/2018 ATTENDING PHYSICIAN: Lang Arauz MD PRIMARY CARE DOCTOR: Dr. Cj Anaya PROCEDURE: Esophagogastroduodenoscopy with gastric biopsy. PREOPERATIVE DIAGNOSES: 1. Nausea, vomiting. 2. History of uncontrolled diabetes complicated with osteomyelitis of the foot requiring 6 weeks of antibiotics, recently finished. 3. History of reflux disease. 4. Drop in hematocrit from admission level of 34.3, down to 20.9, required 2 units of blood transfusion. Suspected gastrointestinal bleeding. POSTOPERATIVE DIAGNOSES: 1. Severe esophagitis in distal esophagus LA grade 4. 2. Z-line was at 44 cm. 3. Evidence of gastroenteritis in body and this was biopsied. 4. Normal fundus, cardia, incisura. There was evidence of retained fluid in the stomach, suggesting possibility of gastroparesis. 5. Normal duodenal bulb and second portion of duodenum. 6. Asthma, minimal. COMPLICATIONS: None. ANESTHESIA: Monitored anesthesia care per anesthesiologist. SPECIMENS: Gastric random biopsy. DETAILS OF OPERATION: After informed consent, the patient has been explained the risks, benefits, indications, alternatives of the procedure. The patient was prepared for EGD. The risks of the procedure, including infection, bleeding, pain, trauma to the surrounding structures, perforation, , were explained the patient, among others, and he acknowledged this and agreed to proceed with the procedure. The patient was brought to the OR. He was turned to the left lateral position and a bite block was placed in patient mouth. After adequate monitored anesthesia care, the upper endoscope was introduced until it was all the way to the second portion of the esophagus. This showed evidence of erythema, friability, erosions, ulcerations, starting at 33 cm from the incisors and extended all the way to the GE junction at 44 cm. This was reflux esophagitis grade 4. The stomach showed evidence of retained fluid and was suctioned out. There was no evidence of any retained food. Retroflexion revealed normal fundus, cardia, incisura. The stomach body and antrum of stomach showed evidence of mild erythema. This was biopsied to rule out H. pylori. Retroflexion revealed normal fundus, cardia, incisura. The duodenal bulb and second portion appeared normal. There was no evidence of any fresh or old blood through the entire EGD. The air was aspirated as the scope was withdrawn. The patient tolerated the procedure well and is currently monitored in the OR in stable condition. RECOMMENDATION: 1. Patient will be on Protonix twice daily for 3 months. 2. We will start him on Carafate 1 g 6 hours for 6 weeks. 3. We will start the patient on Reglan 5 mg p.o. t.i.d. and hold for side effects like tardive dyskinesia. 4. The patient to keep a good control of diabetes. We will start patient on Iron C b.i.d. and multivitamin once daily for 3 months. 5. Patient will follow up in clinic in 4 weeks of discharge to review the biopsy results. He may need a repeat EGD in 3 months depending on his overall symptoms. Further recommendations will follow pending hospital course. The patient will follow gastroesophageal reflux life changes. cc: MD Lang Bellamy MD Robert Hall, MD
[2018-11-07] MEDS ORDERED: MIRALAX PO SCH (10:00)
[2018-11-07] MEDS ORDERED: MAGNESIUM SULFATE 2 GM/S.W.I. 2 GM/50 ML IVPB IV ONE (10:20)
[2018-11-07] MEDS ORDERED: POTASSIUM CHLORIDE 40 MEQ/SWI 40 MEQ/100 ML IVPB IV ONE (10:20)
[2018-11-07] MEDS: ICAR-C PO SCH ×2 (10:36→16:55)
[2018-11-07] MEDS: CENTRUM SILVER PO SCH (10:36)
--- NOTE | 2018-11-07 10:44 | Diag Imaging Result Doc PS360 ---
CHEST-PORTABLE - 11/07/2018 INDICATION: dyspnea COMPARISON: 11/02/2018 FINDINGS: The lungs are normally expanded and clear. Heart size and mediastinal contours are normal. No pneumothorax or pleural effusion. There is a left PICC line in good position with the catheter tip at the upper SVC. IMPRESSION: Negative exam. Electronically signed by Remigio Mcguire 11/07/2018 10:42 AM
[2018-11-07] MEDS: NORCO-7.5 PO PRN ×3 (10:45→23:14)
[2018-11-07] MEDS: TRESIBA FLEXTOUCH U-100 SUBQ SCH (10:51)
[2018-11-07] MEDS ORDERED: REGLAN PO SCH (12:00)
[2018-11-07 13:16] LABS: URINE SOURCE CLEAN CATCH
[2018-11-07 13:23] LABS: BILIRUBIN URINE NEGATIVE (NEGATIVE); BLOOD URINE NEGATIVE (NEGATIVE); COLOR STRAW; GLUCOSE URINE NEGATIVE (NEGATIVE); KETONE URINE TRACE mg/dL (NEGATIVE); LEUKOCYTES URINE NEGATIVE (NEGATIVE); NITRITE URINE NEGATIVE (NEGATIVE); PH URINE 6.5; PROTEIN URINE NEGATIVE (NEGATIVE); TURBIDITY URINE CLEAR (CLEAR); UR EPITHELIAL CELLS <10 /HPF (<10); URINE BACTERIA NEGATIVE /HPF; URINE RBC <10 /HPF (<10); URINE WBC <10 /HPF (<10); UROBILINOGEN URINE NORMAL (NORMAL)
[2018-11-07] MEDS: ZOFRAN IV PRN (16:56)
[2018-11-07] MEDS: ATIVAN PO PRN (21:08)
[2018-11-07] MEDS: REMERON PO SCH (21:09)
[2018-11-08] MEDS: 1/2 NS 1,000 ML IV SCH ×2 (01:11→10:39)
[2018-11-08] MEDS: COMPAZINE IV PRN ×3 (01:40→21:09)
[2018-11-08] MEDS: DEMEROL IV PRN ×5 (01:40→21:03)
[2018-11-08 05:38] LABS: BASO# 0.01 X1000 (0.0-0.2); BASO% 0.2 % (0.0-0.8); EOS# 0.11 X1000 (0.0-0.7); HEMATOCRIT 27.8 % (42.0-52.0); HEMOGLOBIN 9.4 g/dL (14.0-18.0); IMM GRAN# 0.02 X1000 (0.0-0.04); IMM GRAN% 0.4 % (0.0-0.5); LYMPH# 1.61 X1000 (1.2-3.4); LYMPH% 28.9 % (20.5-51.1); MCH 27.3 PG (27-31); MCHC 33.8 g/dL (33-37); MCV 80.8 FL (81-99); MONO# 1.26 X1000 (0.11-0.59); MONO% 22.6 % (1.7-9.3); MPV 9.4 FL (7.4-10.4); NEUT# 2.56 X1000 (1.4-6.5); NEUT% 45.9 % (42.2-75.2); PLT 441 X1000 (130-400); RBC 3.44 XMIL (4.7-6.1); RDW 15.1 % (11.5-14.5); WBC 5.57 X1000 (4.8-10.8)
[2018-11-08 05:51] LABS: AGAP 13; BUN 1 mg/dL (8-22); CHLORIDE 102 mmol/L (98-107); COSMO 280; CREATININE 0.5 mg/dL (0.7-1.2); ESTIMATED GFR > 60; GLUCOSE 156 mg/dL (70-104); POTASSIUM 3.3 mmol/L (3.5-5.1); SODIUM 141 mmol/L (136-145); TCO2 26 mmol/L (25-35)
[2018-11-08 06:25] LABS: BANDS 2 % (0-1); EOS 2 % (1-10); LYMPHS 36 % (21-51); MONO 8 % (1-9); SEGS 44 % (42-75)
[2018-11-08] MEDS ORDERED: CARAFATE LIQUID PO ONE (07:00)
[2018-11-08] MEDS: ZANAFLEX PO SCH ×3 (08:38→20:22)
[2018-11-08] MEDS: CENTRUM SILVER PO SCH (08:38)
[2018-11-08] MEDS: ICAR-C PO SCH ×2 (08:38→17:12)
[2018-11-08] MEDS: ATIVAN PO PRN ×2 (08:38→22:47)
[2018-11-08] MEDS: PROTONIX IV SCH ×2 (08:38→20:22)
[2018-11-08] MEDS: MIRALAX PO SCH (08:39)
[2018-11-08] MEDS ORDERED: KLOR-CON PO ONE (09:52)
[2018-11-08] MEDS: CARAFATE LIQUID PO SCH ×3 (10:40→20:22)
[2018-11-08] MEDS: TRESIBA FLEXTOUCH U-100 SUBQ SCH (10:40)
[2018-11-08] MEDS: HUMALOG SUBQ SCH ×3 (12:05→21:10)
--- NOTE | 2018-11-08 14:36 | PROGRESS NOTE ---
DATE: 11/08/2018 SUBJECTIVE: He looks much better today. This is a first day he just kind of looks pretty normal. No major issues. No throwing up. OBJECTIVE: Vital Signs: Blood pressure 143/81, heart rate of 102, respiratory rate of 17. Cardiovascular: Regular rate and rhythm. Pulmonary: Bilateral breath sounds clear to auscultation. GI: Soft, nontender, nondistended. Bowel sounds were positive. Extremity Examination: No clubbing or cyanosis. Lymphatic Examination: No peripheral edema. Neurological: Examination was nonfocal. Laboratory Data: White count is 5, hemoglobin and hematocrit 9 and 27, platelets 441,000. Potassium 3.3. Urine was clear. Chest x-ray was clear. PROBLEM LIST: 1. Gastrointestinal bleed, nonsteroidal anti-inflammatory drug related erosive gastritis. His hemoglobin and hematocrit are stable. We will continue to follow closely. Gastroenterology will follow up with him. 2. Diabetic ketoacidosis, that has resolved. He is on Lantus. We have advanced his diet. 3. Anemia. He has been stable. Currently, no major issues. 4. Fever. He has not had any other further fever. It may have been just some atelectasis. Chest x-ray and urine are clear. I do not get a sense his foot is infected at this point. We will continue to follow. 5. Disposition. I think he is stabilizing. Anticipate discharge soon, once he has clinically improved, hopefully in the next 24 hours if he is stable. Again, I think he is stable to move to the floor. cc: Lang Arauz MD
[2018-11-08] MEDS: NORCO-7.5 PO PRN (14:47)
[2018-11-08] MEDS: ZOFRAN IV PRN (16:48)
[2018-11-08] MEDS: REMERON PO SCH (20:22)
--- NOTE | 2018-11-08 23:16 | PROVIDER PROGRESS NOTE ---
Progress Note SUBJECTIVE: No acute overnight events. +N/V yesterday that was NBNB. None today. No CP, SOB. Chronic back pain. He reports some mild to moderate periumbilical pain. +melenic stool OBJECTIVE Last Vital Signs Temp 98.2 F 11/08/18 20:00 Pulse 58 L 11/08/18 20:00 Resp 17 11/08/18 16:00 BP 126/63 11/08/18 20:00 Pulse Ox 94 L 11/08/18 20:00 Height 6 ft Weight 241 lb 1.6 oz GEN: awake, alert, NAD HEENT: anicteric, MMM NECK: supple, no jvd Cardiac: RRR, no murmurs PULM: CTAB, no wheezing ABD: ND, BS present, TTP periumbilical area without rebound or guarding EXT: no cce, WWP NEURO: nonfocal LABS 11/08/18 11/08/18 04:55 04:55 WBC 5.57 Hgb 9.4 L MCV 80.8 L Plt Count 441 H Sodium 141 Potassium 3.3 L Chloride 102 Carbon Dioxide 26 BUN 1 L Creatinine 0.5 L Glucose 156 H EGD 11/07/2018 POSTOPERATIVE DIAGNOSES: 1. Severe esophagitis in distal esophagus LA grade 4. 2. Z-line was at 44 cm. 3. Evidence of gastroenteritis in body and this was biopsied. 4. Normal fundus, cardia, incisura. There was evidence of retained fluid in the stomach, suggesting possibility of gastroparesis. 5. Normal duodenal bulb and second portion of duodenum. A/P: Mr. Miguel A Castillo is a 37 year old man with poorly controlled IDDM2, GERD with esophagitis, h/o osteomyelitis admitted with DKA, and acute on chronic anemia from UGIB secondary to LA grade D esophagitis seen on EGD yesterday. This esophagitis is likely from recurrent vomiting in the setting of probable gastroparesis. Patient was unable to tolerate gastric emptying study this AM. #UGIB: 2/2 to esophagitis: hgb stable; on PPI BID, carafate 1g QID #LA grade D esophagitis: continue PPI BID for 3 months, carafate for 4-6 weeks: avoid NSAIDs; repeated EGD in 3 months as outpatient #Anemia: from above; on iron/vitamin C #DKA: resolved #Probable gastroparesis: small frequent low fat meals, antiemetics prn; minimize narcotics #IDDM2: on SSI as per primary #Constipation: on bowel regimen Will sign off. Please call with questions or concerns. Patient will need to follow-up in clinic 2-4 weeks after discharge
[2018-11-09] MEDS: ZOFRAN IV PRN ×2 (02:00→10:52)
[2018-11-09] MEDS: DEMEROL IV PRN ×4 (02:01→15:35)
[2018-11-09] MEDS: HUMALOG SUBQ SCH ×4 (06:22→15:39)
[2018-11-09] MEDS: COMPAZINE IV PRN (06:31)
[2018-11-09] MEDS: CARAFATE LIQUID PO SCH ×3 (06:41→15:32)
[2018-11-09 07:48] LABS: BASO# 0.01 X1000 (0.0-0.2); BASO% 0.1 % (0.0-0.8); EOS# 0.13 X1000 (0.0-0.7); EOS% 1.9 % (0.0-10.0); HEMATOCRIT 27.9 % (42.0-52.0); HEMOGLOBIN 9.1 g/dL (14.0-18.0); IMM GRAN# 0.03 X1000 (0.0-0.04); IMM GRAN% 0.4 % (0.0-0.5); LYMPH# 1.74 X1000 (1.2-3.4); LYMPH% 24.9 % (20.5-51.1); MCHC 32.6 g/dL (33-37); MCV 82.8 FL (81-99); MONO# 1.61 X1000 (0.11-0.59); MPV 9.3 FL (7.4-10.4); NEUT# 3.48 X1000 (1.4-6.5); NEUT% 49.7 % (42.2-75.2); PLT 508 X1000 (130-400); RBC 3.37 XMIL (4.7-6.1); RDW 15.1 % (11.5-14.5)
[2018-11-09 08:08] LABS: EOS 2 % (1-10); LYMPHS 34 % (21-51); MONO 10 % (1-9); SEGS 54 % (42-75)
[2018-11-09] MEDS: CENTRUM SILVER PO SCH (08:15)
[2018-11-09] MEDS: ICAR-C PO SCH ×2 (08:15→17:01)
[2018-11-09] MEDS: ATIVAN PO PRN (08:15)
[2018-11-09] MEDS: ZANAFLEX PO SCH ×2 (08:15→15:33)
[2018-11-09 08:16] LABS: AGAP 10; BUN 2 mg/dL (8-22); CALCIUM 8.5 mg/dL (8.8-10.2); CHLORIDE 103 mmol/L (98-107); COSMO 281; CREATININE 0.6 mg/dL (0.7-1.2); ESTIMATED GFR > 60; GLUCOSE 194 mg/dL (70-104); POTASSIUM 3.6 mmol/L (3.5-5.1); SODIUM 140 mmol/L (136-145); TCO2 27 mmol/L (25-35)
[2018-11-09] MEDS: PROTONIX IV SCH (08:16)
[2018-11-09] MEDS: SODIUM CHLORIDE 0.9% INJ SCH (08:16)
[2018-11-09] MEDS: MIRALAX PO SCH (08:19)
[2018-11-09] MEDS: NORCO-7.5 PO PRN ×2 (08:32→17:04)
[2018-11-09] MEDS: TRESIBA FLEXTOUCH U-100 SUBQ SCH (10:57)
[2018-11-09 15:25] VITALS: BP 129/76
--- NOTE | 2018-11-09 22:35 | DISCHARGE SUMMARY ---
ADMISSION DATE: 11/02/2018 DISCHARGE DATE: 11/09/2018 DISCHARGE DIAGNOSES: 1. Diabetic ketoacidosis. 2. Acute gastrointestinal bleed with erosive esophagitis. 3. Anemia status post bleed. CONSULTATIONS: Gastroenterology, Dr. Bains, Dr. Horne and Dr. Conti. PROCEDURES: Esophagogastroduodenoscopy with gastric biopsy, Dr. Horne, which was done on the . DISCHARGE DIAGNOSES: 1. Acute gastrointestinal bleed. 2. Erosive esophagitis. 3. Diabetic ketoacidosis. HOSPITAL COURSE: This is a 37-year-old male recently here for left foot osteo status post I and D who came in with nausea, vomiting and poor p.o. intake. He is followed by Dr. Wright. He came in with blood sugars up to 935 and initial labs most consistent with diabetic ketoacidosis [*] white count, pH 7.3, cap was 30, BUN and creatinine of 47 and 1.7. He was given aggressive hydration. He was placed on an insulin drip and slowly improved. I think initially he came here to the [facility] and then he was sent to [place] because of limited beds. The patient over there had a little bit of leukocytosis but nothing major. His foot wound looked normal. No erythema, nothing to that. No drainage. I did get a plain film, which showed some nonspecific changes, which I did discuss them with Dr. Wright. He felt that probably associated with his previous amputation. The patient stabilized; however, he started developing some persistent hypotension. His H and H initially was 12, but the following day was down 8 and the day after that had dropped to 7.4. He also developed some melena, and he was transferred for GI evaluation on the . He was heme positive. He had been on Zosyn and daptomycin because of questionable infection, although there is not clearly that he had been there. He also had been on DVT prophylaxis with Lovenox and developed further bleeding. Hemoglobin and hematocrit pippa was around 7 and 21. He got 2 units of packed red blood cells, and his hemoglobin and hematocrit have come up since then. Dr. Bains was consulted and recommended to follow clinically. In any case, he overall improved. Hemoglobin and hematocrit have stabilized. EGD showed erosive esophagitis, some gastroenteritis, but no major bleeding. He stabilized. Plan was to discharge him on the on proton pump inhibitor and Carafate. Avoid NSAIDs. He was placed on iron supplementation. His iron studies here were not completely conclusive, but overall he seemed improved, actually had low iron and a 10% iron sat, and he was felt stable for discharge. Again, H and H at discharge was 9.9 and 27.9. His sugars have been under good control. DISCHARGE MEDICATIONS: Clonidine 0.1 b.i.d., NovoLog sliding scale t.i.d., Remeron 30 at bedtime, Zanaflex 4 t.i.d., Ambien 10 at bedtime p.r.n. insomnia, Lantus 70 units b.i.d., sucralfate 1 g q.i.d. for 4 to 6 weeks, Icar-C 1 daily, lisinopril 30 daily, [place] 7.5 one p.o. q.6 p.r.n. pain, Norvasc 5 daily, and Protonix 40, which I think will change that to b.i.d. for 2 weeks and then daily. FOLLOWUP: He will need to follow up with Dr. Horne at discharge and his PCP. Avoid NSAIDs. DISCHARGE CONDITION: Stable. cc: MD Cj Navarrete MD Dr. Arora
== END 2018-11-09 18:27 | disposition home or self-care (01) | DRG 638 ==
LOC: ED 11:58 → SUATTDRO 16:47 → P.ICU 16:47 → ICU 11-05 18:13 → 3S 11-07 20:22 → 3N 11-08 18:28
PROVIDERS: ATTEND Internal Medicine
CPT/HCPCS: 36415; 36430; 36569; 71010; 71045; 73620; 74000; 74018; 74176; 80048; 80053; 81001; 82009; 82150; 82270; 82550; 82607; 82728; 82746; 82805; 82948; 83540; 83550; 83605; 83615; 83690; 83735; 84100; 84132; 84484; 85025; 85610; 85730; 86850; 86900; 86901; 86920; 87040; 87324; 88305; 88312; 93005; 96361; 96374; 96375; 99285; A9270; C9113; J0610; J0780; J0878; J1644; J1650; J1815; J2175; J2270; J2405; J2543; J3475; J3480; J7030; J7040; J7042; J7050; P9016; S0164; XXXXX

== ENCOUNTER 2018-11-24 08:35 | Inpatient (IN) ==
[2018-11-24] MEDS ORDERED: NS 1,000 ML IV ONE ×3 (09:06→15:49)
[2018-11-24] MEDS ORDERED: PROTONIX IV ONE (09:18)
[2018-11-24] MEDS ORDERED: SODIUM CHLORIDE 0.9% INJ ONE ×2 (09:18→15:16)
--- NOTE | 2018-11-24 09:22 | PROVIDER DOCUMENTATION ---
HPI-Abdominal Pain/GI Problem - General Chief Complaint: Abdominal Pain Stated Complaint: ABD PAIN,V/D,LT FOOT PAIN Time Seen by Provider: 11/24/18 08:54 Source: patient Allergies/Adverse Reactions: Patient Allergies Allergy/AdvReac Type Severity Reaction Status Date / Time Sulfa (Sulfonamide Allergy HIVES Verified 11/02/18 13:22 Antibiotics) vancomycin AdvReac RASH Verified 11/02/18 13:22 Home Medications: Home Medication List Medication Instructions Recorded Confirmed Last Taken Type Clonidine [Catapres] 0.1 mg PO BID PRN 02/11/17 11/02/18 10/31/18 History Insulin Aspart [Novolog] 1 dose SQ TID 01/17/18 11/02/18 11/01/18 History Iron Carbonyl/Ascorbic Acid 1 each PO BID tablet 01/26/18 11/02/18 11/02/18 Rx [Icar-C] Mirtazapine [Remeron] 30 mg PO HS 02/18/18 11/02/18 11/01/18 History Amlodipine [Norvasc] 5 mg PO BID tablet 06/27/18 11/02/18 11/02/18 Rx Lisinopril 30 mg PO DAILY #0 08/18/18 11/02/18 11/02/18 Rx Tizanidine HCl [Zanaflex] 4 mg PO TID 09/08/18 11/02/18 11/02/18 History Insulin Glargine [Basaglar] 70 unit SUBQ BID #2 insuln.pen 09/15/18 11/02/18 11/02/18 Rx Hydrocodone/APAP 7.5 mg/325 mg 1 ea PO Q6H PRN PRN #20 tab 11/09/18 Unknown Rx [[place]-7.5] Pantoprazole Sodium [Protonix] 40 mg PO DAILY #60 tablet.dr 11/09/18 Unknown Rx Sucralfate [Carafate Liquid] 1 gm PO 0700,1100,1600,2100 #120 11/09/18 Unknown Rx udc Zolpidem [Ambien] 10 mg PO HS PRN #25 tab 11/09/18 Unknown Rx - History of Present Illness-ABD Nature of Presenting Problems: 37yom present to ER with c/o epigastric pain x 1 week. Pt reports he was admitted 2 weeks ago for esophagitis and DKA. Reports nvd. States stools are black. Reports he had an EGD during admission and is to f/u with GI in 2 weeks. Pt reports left foot pain. Pt has amputation to left 1st and 2nd toes. Pt reports his blood sugar has been high the past few days as well. Abdominal Pain Onset Location: reports: epigastric Pain Radiation: reports: no radiation Quality of Pain: reports: sharp Onset/Duration: reports: 1 week ago Timing: reports: still present Associated Symptoms: reports: diarrhea, nausea, vomiting. denies: chest pain, diaphoresis, fever/chills, genitourinary problems, shortness of breath Dark Stools Present?: reports: black Rectal Pain: reports: none Review of Systems - Adult - REVIEW OF SYSTEMS - ADULT Constitutional: reports: no symptoms reported. denies: fever Eyes: reports: no symptoms reported Ears, Nose, Mouth & Throat: reports: no symptoms reported Cardiovascular: reports: no symptoms reported Respiratory: reports: no symptoms reported Gastrointestinal: reports: see HPI, abdominal pain, diarrhea, nausea, rectal bleeding (black stool), vomiting Genitourinary: reports: no symptoms reported. denies: dysuria Musculoskeletal: reports: see HPI, other (left foot pain) Integumentary: reports: no symptoms reported Neurological: reports: no symptoms reported Psychiatric: reports: no symptoms reported Endocrine: reports: no symptoms reported Hematologic/Lymphatic: reports: no symptoms reported Allergic/Immunologic: reports: no symptoms reported All Other Systems: Reviewed and Negative Past History - Adult - PAST MEDICAL HISTORY-ADULT Review of Records: reports: Old Records Reviewed, Nursing Assessment Review, Medications Reviewed Major Childhood Illnesses: reports: denies history Cardiovascular: reports: HTN Respiratory: reports: denies history Gastrointestinal: reports: denies history Obstetrical/Gynecological: reports: denies history Genitourinary: reports: kidney disease, other (Sofi history of) Musculoskeletal: reports: denies history Neurological: reports: denies history Endocrine/Immune: reports: Diabetes Other Conditions: reports: MRSA - PRIOR SURGERIES/PROCEDURES Surgical/Procedure History: reports: recent surgery (09/12/18), reviewed, not pertinent, orthopedic (extremity) - IMMUNIZATION STATUS Childhood Immunizations: See Nurse Assessment Flu Vaccine: See Nurse Assessment - FAMILY HISTORY Family History: reviewed, not pertinent Physical Exam-General - PHYSICAL EXAM-ADULT Initial Vital Signs Reviewed: Yes - CONSTITUTIONAL General Appearance: alert, no apparent distress - EYES Eyes: pink conjunctivae - HEAD, EARS, NOSE, MOUTH & THROAT HENMT: normocephalic/atraumatic, moist mucous membranes, normal ENT inspection - NECK Neck: non-tender, full range of motion, supple, normal inspection - RESPIRATORY Respiratory: lungs clear, normal breath sounds, no respiratory distress, no accessory muscle use - CARDIOVASCULAR Cardiovascular: regular rate, rhythm - GASTROINTESTINAL (ABDOMEN) Abdominal Exam: normal bowel sounds, soft, tenderness (epigastric). negative: distended, guarding, rigid, rebound - GENITOURINARY Male Genitalia: deferred Rectal Exam: normal exam, normal rectal tone. negative: black stool, blood streaked stool, hemorrhoids, tenderness Hemoccult Exam: heme negative stool - LYMPHATIC Lymphatic: no adenopathy - MUSCULOSKELETAL Back Exam: normal inspection, no CVA tenderness, no vertebral tenderness Extremity: normal range of motion, normal gait, normal inspection - SKIN Integumentary: normal color, warm/dry - NEUROLOGIC Neurologic: grossly normal, no motor/sensory deficits - PSYCHIATRIC Psych/Mental Status: normal mood/affect, oriented x 3 Progress - PLAN OF CARE/RESULTS Progress/Plan/Lab Results: Vital Signs - 8 hr 11/24/18 08:48 Temperature 97.4 F L Pulse Rate 83 Respiratory Rate 18 Blood Pressure 85/54 O2 Sat by Pulse Oximetry 99 Laboratory Results - last 24 hr 11/24/18 08:53 POC Glucose 500 H D Orders Category Date Time Status Cardiac Monitoring DIRECTED Care 11/24/18 09:07 Active IV Insertion ORDERED Care 11/24/18 09:07 Active CHEST-2 VIEWS [RAD] Stat Exams 11/24/18 09:[address] ABD/PELVIS W/IV CONT ONLY [CT] Stat Exams 11/24/18 09:16 Ordered ABG [RESP] Routine Lab 11/24/18 09:05 Ordered ACETONE SERUM [CHEM] Stat Lab 11/24/18 09:07 Uncollected BLOOD CULTURE [BLDCUL] Stat Lab 11/24/18 09:07 Uncollected CBC WITH DIFF [HEME] Stat Lab 11/24/18 09:05 Uncollected CK PROFILE [SP CHEM] Stat Lab 11/24/18 09:07 Uncollected COMPREHENSIVE METABOLIC PANEL [CHEM] Stat Lab 11/24/18 09:05 Uncollected LACTATE, PLASMA [CHEM] Q3H Lab 11/24/18 09:15 Uncollected LACTATE, PLASMA [CHEM] Q3H Lab 11/24/18 12:15 Uncollected LACTATE, PLASMA [CHEM] Q3H Lab 11/24/18 15:15 Uncollected MAGNESIUM [CHEM] Stat Lab 11/24/18 09:08 Uncollected OCCULT BLOOD SCREENING [STOOL] Stat Lab 11/24/18 09:16 Uncollected PROTIME WITH INR [COAG] Stat Lab 11/24/18 09:07 Uncollected PTT [COAG] Stat Lab 11/24/18 09:07 Uncollected TROPONIN T Stat Lab 11/24/18 09:07 Uncollected URINALYSIS W/POSS RFLX CULT [URINALYSIS] Stat Lab 11/24/18 09:05 Uncollected 0.9% Sodium Chloride Inj [Ns] 1,000 ml Med 11/24/18 09:06 Active IV 999 mls/hr 1225 --- CORRECTED SODIUM IS 136 Result Diagrams: 11/24/18 09:38 11/24/18 09:38 - REASSESSMENT Reassessment #1 Time Reassessed: 10:17 (Hemoccult performed with assistance of phone technician. Pt tolerated well.) Reassessment #2 Time Reassessed: 12:13 (RN states NS was not infusing but they are now. Plan to hydrate pt and bring down sugar.) Reassessment #3 Time Reassessed: 13:47 (pt made aware of admission, pt agrees. FSBS is imp roving. Pt receiving fluids at this time. ) - XRAY 1 XRAY Study: Chest Impression: See EMR Report (There is no evidence of acute cardiac or pulmonary disease. Compared to 11/07/2018 the PICC line has been removed but otherwise are has been no significant change. IMPRESSION: No acute disease. Electronically signed by Alexx Chapman 11/24/2018 9:23 AM) - CT/MRI 1 CT Study: Abdomen, Pelvis Impression: See EMR Report (The lung bases are clear and the heart size is normal. There is mild splenomegaly. The spleen measures 14.5 x 4.9 cm. Otherwise all the abdominal organs are normal. No bowel obstruction or inflammation. Normal appendix. Urinary bladder, prostate, and rectum are normal. Bones are intact. IMPRESSION: Mild splenomegaly. No acute process. This exam was performed using automated exposure control, adjustment of mA or kV according to patient size, and/or use of iterative reconstruction technique Electronically signed by Remigio Mcguire 11/24/2018 11:48 AM) - CONSULTS/PCP/HOSPITALIST Notification #1 *Consult/PCP/Hospitalist*: Dr Horne Time Discussed: 12:30 (discussed with Dr Horne, suggests giving protonix, carafate, and f/u in office ) Consult Disposition: F/U in office #2 Consult: Dr Wilkins Time Discussed: 13:29 Reason/Comments: spoke with tarik Murillo [employer] Consult Disposition: Admit Departure - Departure Date of Disposition Decision: 11/24/18 Time of Disposition Decision: 13:30 DIAGNOSIS: Sepsis Qualifiers: Sepsis type: sepsis due to unspecified organism Qualified Code(s): A41.9 - Sepsis, unspecified organism Diabetes mellitus Qualifiers: Diabetes mellitus type: type 2 Diabetes mellitus geospatial program management officer insulin use: unspecified geospatial program management officer insulin use status Diabetes mellitus complication status: with unspecified complications Qualified Code(s): E11.8 - Type 2 diabetes mellitus with unspecified complications Abdominal pain Qualifiers: Abdominal location: epigastric Qualified Code(s): R10.13 - Epigastric pain Disposition: ADMITTED INPATIENT 09 Certified Medical Emergency: Emergent Condition: Fair - Critical Care Note This patient required my direct & personal management of CC.: No Attestation - Physician/ AMY Attestation Patient care was provided by Advanced Practice Provider:: Yes Advanced Practice Provider:: Nerissa Cisneros Advanced Practice Provider documentation review:: The Mid-level provider documentation, treatment plan and medical decision making was reviewed by the physician who agrees with all treatment and medical decision making by the MLP. The physician spent face to face time with patient:: No Advanced Practice Provider documentation review:: Supervising physician onsite and consulted in the evaluation and care of this patient. The physician did not have a face to face encounter with the patient.
--- NOTE | 2018-11-24 09:25 | Diag Imaging Result Doc PS360 ---
EXAM: CHEST-2 VIEWS 11/24/2018 HISTORY: abd pain TECHNIQUE: PA and lateral chest COMMENT: There is no evidence of acute cardiac or pulmonary disease. Compared to 11/07/2018 the PICC line has been removed but otherwise are has been no significant change. IMPRESSION: No acute disease. Electronically signed by Alexx Chapman 11/24/2018 9:23 AM
[2018-11-24 09:56] LABS: BASO# 0.05 X1000 (0.0-0.2); BASO% 0.5 % (0.0-0.8); EOS# 0.05 X1000 (0.0-0.7); EOS% 0.5 % (0.0-10.0); HEMATOCRIT 30.2 % (42.0-52.0); HEMOGLOBIN 10.3 g/dL (14.0-18.0); IMM GRAN# 0.03 X1000 (0.0-0.04); IMM GRAN% 0.3 % (0.0-0.5); LYMPH# 1.85 X1000 (1.2-3.4); MCH 26.3 PG (27-31); MCHC 34.1 g/dL (33-37); MCV 77.2 FL (81-99); MONO# 1.22 X1000 (0.11-0.59); MONO% 12.5 % (1.7-9.3); MPV 9.3 FL (7.4-10.4); NEUT# 6.54 X1000 (1.4-6.5); NEUT% 67.2 % (42.2-75.2); PLT 513 X1000 (130-400); RBC 3.91 XMIL (4.7-6.1); RDW 13.8 % (11.5-14.5); WBC 9.74 X1000 (4.8-10.8)
[2018-11-24 10:04] LABS: INR 0.88; PROTIME 12.7 Seconds (11.0-16.0); PTT 28.4 Seconds (22.3-41.8)
[2018-11-24 10:05] LABS: ACETONE SERUM NEGATIVE (NEGATIVE)
[2018-11-24 10:17] LABS: ALLEN TEST NO; BLOOD TYPE ARTERIAL; HCO3-(ACT) 26.5 mmoll (20.0-26.0); METHB 0.8 % (0.0-1.5); O2(CT) 14.7 mL/dL (15.0-23.0); O2HB 96.1 % (95.0-99.0); PCO2(98.6) 40 mmHg (35-45); PO2(98.6) 91 mmHg (60-100); SAMPLE BLOOD; SAO2 99.1 % (95.0-100.0); THB 10.8 g/dL (11.5-17.4); pH(98.6) 7.43 (7.35-7.45)
[2018-11-24 10:18] LABS: MODALITY ROOM AIR
[2018-11-24 10:55] LABS: URINE SOURCE CLEAN CATCH
[2018-11-24 10:57] LABS: AGAP 14; ALB/GLOB RATIO 1.4; ALBUMIN 3.8 g/dL (3.5-5.0); ALKALINE PHOSPHATASE 94 U/L (32-122); BUN 18 mg/dL (8-22); CALCIUM 8.9 mg/dL (8.8-10.2); CHLORIDE 90 mmol/L (98-107); CK PROFILE 136 U/L (24-204); COSMO 287; CREATININE 0.9 mg/dL (0.7-1.2); ESTIMATED GFR > 60; GOT 11 U/L (10-34); GPT 7 U/L (10-44); MAGNESIUM 1.5 mg/dL (1.5-2.7); POTASSIUM 4.6 mmol/L (3.5-5.1); SODIUM 129 mmol/L (136-145); TCO2 25 mmol/L (25-35); TOTAL BILIRUBIN 0.19 mg/dL (0.20-1.00); TOTAL PROTEIN 6.6 g/dL (6.3-8.3)
[2018-11-24 10:58] LABS: BILIRUBIN URINE NEGATIVE (NEGATIVE); BLOOD URINE NEGATIVE (NEGATIVE); COLOR STRAW; GLUCOSE URINE >1000 mg/dL (NEGATIVE); KETONE URINE NEGATIVE (NEGATIVE); LEUKOCYTES URINE NEGATIVE (NEGATIVE); NITRITE URINE NEGATIVE (NEGATIVE); PROTEIN URINE NEGATIVE (NEGATIVE); SP GRAVITY URINE 1.028; TURBIDITY URINE CLEAR (CLEAR); UROBILINOGEN URINE NORMAL (NORMAL)
[2018-11-24 10:59] LABS: GLUCOSE 573 mg/dL (70-104)
[2018-11-24 11:00] LABS: UR EPITHELIAL CELLS <10 /HPF (<10); URINE BACTERIA NEGATIVE /HPF; URINE RBC <10 /HPF (<10); URINE WBC <10 /HPF (<10)
[2018-11-24] MEDS ORDERED: HUMULIN R IV ONE (11:37)
--- NOTE | 2018-11-24 11:51 | Diag Imaging Result Doc PS360 ---
CT ABD/PELVIS W/IV CONT ONLY - 11/24/2018 INDICATION: abd pain COMPARISON: 11/02/2018 FINDINGS: The lung bases are clear and the heart size is normal. There is mild splenomegaly. The spleen measures 14.5 x 4.9 cm. Otherwise all the abdominal organs are normal. No bowel obstruction or inflammation. Normal appendix. Urinary bladder, prostate, and rectum are normal. Bones are intact. IMPRESSION: Mild splenomegaly. No acute process. This exam was performed using automated exposure control, adjustment of mA or kV according to patient size, and/or use of iterative reconstruction technique Electronically signed by Remigio Mcguire 11/24/2018 11:48 AM
[2018-11-24] MEDS ORDERED: BENTYL PO ONE (12:14)
[2018-11-24] MEDS ORDERED: ZOFRAN IV ONE (12:14)
[2018-11-24] MEDS ORDERED: MORPHINE IV ONE (12:14)
[2018-11-24] MEDS ORDERED: CARAFATE PO ONE (12:29)
[2018-11-24] MEDS ORDERED: ZOSYN 3.375 GM in NS 50 ML IV ONE (13:18)
[2018-11-24] MEDS ORDERED: TYLENOL PO PRN (15:13)
--- NOTE | 2018-11-24 15:53 | EKG Report ---
Test Performed on : 11/24/2018 09:02:16 AM Test Reason : ED. No order in [place] Blood Pressure : / mmHG Vent. Rate : 081 BPM Atrial Rate : 081 BPM P-R Int : 146 ms QRS Dur : 094 ms QT Int : 402 ms P-R-T Axes : 031 015 033 degrees QTc Int : 466 ms Sinus rhythm. with premature atrial complexes. Otherwise normal ECG When compared with ECG of 02-NOV-2018 15:19, (Unconfirmed) premature atrial complexes. are now present Vent. rate has decreased BY 54 BPM Nonspecific T wave abnormality no longer evident in Inferior leads Nonspecific T wave abnormality no longer evident in Anterolateral leads Unconfirmed Result
--- NOTE | 2018-11-24 15:57 | Diag Imaging Result Doc PS360 ---
FOOT 2 VIEWS LEFT - 11/24/2018 INDICATION: pain, h/o osteomyelitis TECHNIQUE: COMPARISON: 11/03/2018 FINDINGS: Stable indeterminate erosion of the second metatarsal head. No new bony erosions. No fracture or dislocation. IMPRESSION: No change from prior. Electronically signed by Remigio Mcguire 11/24/2018 3:55 PM
[2018-11-24] MEDS: REGLAN IV SCH ×2 (16:10→21:35)
[2018-11-24] MEDS: PROTONIX IV SCH (16:12)
[2018-11-24] MEDS: HUMALOG SUBQ SCH ×2 (16:18→21:46)
[2018-11-24] MEDS: KEFZOL 2 GM/D5W 2 GM/50 ML IVPB IV SCH (16:22)
[2018-11-24] MEDS: DILAUDID IV PRN ×2 (17:13→21:33)
--- NOTE | 2018-11-24 20:09 | HISTORY AND PHYSICAL ---
CHIEF COMPLAINT: Epigastric pain, melena, bloody vomitus. HISTORY OF PRESENT ILLNESS: This is a 37-year-old gentleman who presented to the emergency room complaining of epigastric pain for a week. He stated he has had black stools for the past 2-3 days, and he did have hematemesis today prior to coming to the emergency room. Of note, he was admitted to the hospital about 2 weeks ago for esophagitis. At that time he underwent an EGD. He was found to have severe esophagitis, grade 4 gastroenteritis, possible gastroparesis. He was supposed to follow up with GI in 2 weeks. It is unclear if he got his medications filled after discharge. He has a history of diabetes with noncompliance with his medications, and he does have a blood sugar of 573 on admission. PAST MEDICAL HISTORY: 1. Left foot osteomyelitis, status post I and D. 2. Uncontrolled diabetes mellitus type 2. 3. Medical noncompliance. 4. Hypertension. 5. Nicotine dependence. PAST SURGICAL HISTORY: 1. I and D of the left foot with 2nd metatarsal head amputation and placement of wound VAC due to osteomyelitis in 08/2018. 2. Multiple metatarsal amputations, left foot. ALLERGIES: Sulfa and vancomycin. SOCIAL HISTORY: He denies any alcohol. 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 He stopped smoking about a year ago. HOME MEDICATIONS: A list will be obtained by the nursing staff, and once verified we will review and restart as appropriate. REVIEW OF SYSTEMS: Discussed with the patient, with pertinent positives stated in the HPI. He denies any dizziness or syncope, any chest pain, palpitations, any diarrhea, constipation, shortness of breath, cough, fever, chills, any night sweats, hematuria, dysuria, frequency or urgency. PHYSICAL EXAMINATION: GENERAL: This is a 37-year-old gentleman who is lying in the bed in no distress. VITAL SIGNS: Blood pressure is 161/90 with a heart rate of 107, respirations are 20, temperature is 98.3 degrees oral, with room air saturations 100%. EYES: Pupils are equal, round, react to light. EOMs are intact. Sclerae anicteric. HEENT: Head is normocephalic, atraumatic. Mucous membranes are moist. NECK: Supple, with trachea midline. CARDIOVASCULAR: Regular rate and rhythm. S1 and S2 are appreciated. EXTREMITIES: He has no lower extremity edema. Calves are nontender. Bilateral peripheral pulses palpable x4 extremities. PULMONARY: Breath sounds are clear. No increased work of breathing noted. Chest rises and falls symmetrically with respiration. Chest wall is nontender to palpation. GASTROINTESTINAL: Abdomen is soft, nontender, nondistended. Bowel sounds in all 4 quadrants. GENITOURINARY: He has no CVA nor suprapubic tenderness. NEUROLOGIC: He is alert and oriented x3. SKIN: Warm and dry. LABORATORY DATA: WBC is 9.7 with hemoglobin 10.3, hematocrit 30.2, platelets of 513,000. Sodium is 129, potassium 4.6, BUN 18, creatinine 0.9 with glucose of 573. Acetone is negative. Lactate was 2.7. Blood cultures are pending. Stool for occult blood was negative. DIAGNOSTIC DATA: Chest x-ray revealed no acute disease. CT of the abdomen and pelvis revealed mild splenomegaly with no acute processes. ASSESSMENT AND PLAN: 1. Melena, hematemesis. Given the patient's history and recent esophagogastroduodenoscopy, we will start a Protonix drip. We will start Carafate q.6 hours. We will recheck a CBC and CMP in the morning. Consult Gastroenterology in the morning. 2. Questionable gastroparesis. This was questioned on the patient's operative note in 10/2018. At that time Reglan had been prescribed. We will start Reglan 10 mg intravenously q.8 hours. 3. Diabetes mellitus. He will be placed on patterned blood glucose with sliding scale insulin. 4. Dehydration. He was given 3 L of saline in the emergency room. We will continue with intravenous hydration and monitor. 5. Possible sepsis. Given the patient's lactate level and tachycardia, blood cultures were obtained. He was given a fluid bolus. In review of his past history, he did have methicillin- sensitive Staphylococcus aureus as well as Enterobacter in his left foot wound, having osteomyelitis. At that time he had intravenous antibiotics, receiving Ancef. He has complained of increasing pain in his left foot. We will x-ray his foot. We will start him back on Ancef at present and follow. 6. We will check stools for occult blood. Further treatments pending hospital course. Dictated by RAMÓN White for Clint Rush MD This chart was documented by, RAMÓN White and accurately reflects the services performed, treatment plan and medical decisions as attested by the providers signature Clint Rush MD. cc: RAMÓN White MD [facility]
[2018-11-24] MEDS ORDERED: REGLAN LIQUID PO SCH (21:00)
[2018-11-24] MEDS: NS 1,000 ML IV SCH (21:27)
[2018-11-24] MEDS: CARAFATE LIQUID PO SCH (21:30)
[2018-11-24] MEDS: ZOFRAN IV PRN (21:35)
[2018-11-25] MEDS: DILAUDID IV PRN ×7 (00:35→22:21)
[2018-11-25] MEDS: KEFZOL 2 GM/D5W 2 GM/50 ML IVPB IV SCH ×4 (00:43→22:57)
[2018-11-25] MEDS: CARAFATE LIQUID PO SCH ×4 (02:00→22:20)
[2018-11-25] MEDS: PROTONIX IV SCH ×2 (04:36→15:14)
[2018-11-25] MEDS: ZOFRAN IV PRN ×3 (04:40→19:10)
[2018-11-25] MEDS: REGLAN IV SCH ×5 (04:42→22:20)
[2018-11-25] MEDS: HUMALOG SUBQ SCH ×4 (06:01→22:25)
[2018-11-25 07:55] LABS: BASO# 0.05 X1000 (0.0-0.2); BASO% 0.6 % (0.0-0.8); EOS# 0.14 X1000 (0.0-0.7); EOS% 1.6 % (0.0-10.0); HEMATOCRIT 32.1 % (42.0-52.0); HEMOGLOBIN 10.8 g/dL (14.0-18.0); IMM GRAN# 0.03 X1000 (0.0-0.04); IMM GRAN% 0.3 % (0.0-0.5); LYMPH# 2.26 X1000 (1.2-3.4); LYMPH% 25.3 % (20.5-51.1); MCH 26.5 PG (27-31); MCHC 33.6 g/dL (33-37); MCV 78.9 FL (81-99); MONO# 0.94 X1000 (0.11-0.59); MONO% 10.5 % (1.7-9.3); MPV 9.5 FL (7.4-10.4); NEUT% 61.7 % (42.2-75.2); PLT 626 X1000 (130-400); RBC 4.07 XMIL (4.7-6.1); WBC 8.92 X1000 (4.8-10.8)
[2018-11-25] MEDS ORDERED: CATAPRES PO PRN (09:33)
[2018-11-25 09:59] LABS: AGAP 18; ALB/GLOB RATIO 1.4; ALBUMIN 4.1 g/dL (3.5-5.0); ALKALINE PHOSPHATASE 88 U/L (32-122); BUN 7 mg/dL (8-22); CALCIUM 9.3 mg/dL (8.8-10.2); CHLORIDE 96 mmol/L (98-107); COSMO 279; CREATININE 0.7 mg/dL (0.7-1.2); ESTIMATED GFR > 60; GLUCOSE 262 mg/dL (70-104); GOT 14 U/L (10-34); GPT 9 U/L (10-44); POTASSIUM 3.3 mmol/L (3.5-5.1); SODIUM 136 mmol/L (136-145); TCO2 22 mmol/L (25-35); TOTAL BILIRUBIN 0.23 mg/dL (0.20-1.00); TOTAL PROTEIN 7.1 g/dL (6.3-8.3)
[2018-11-25] MEDS: NORVASC PO SCH ×2 (10:15→22:21)
[2018-11-25] MEDS ORDERED: AMBIEN PO PRN (10:29)
[2018-11-25] MEDS ORDERED: ATIVAN PO ONE (10:30)
[2018-11-25] MEDS: BASAGLAR SUBQ SCH ×2 (11:51→22:59)
--- NOTE | 2018-11-25 14:14 | PROGRESS NOTE ---
DATE: 11/25/2018 SUBJECTIVE: Patient is lying comfortably in bed. He is feeling anxiety, lower extremity discomfort/pain, some abdominal discomfort as well. His blood sugar is still elevated. I have restarted his home dose of the Lantus 70 units subcutaneously b.i.d. I will continue with sliding scale insulin and pattern of blood sugar. Also, I will restart this patient on lorazepam and Ambien during the night. OBJECTIVE: Vital Signs: Temperature 98.1 degrees, pulse 98, respiratory rate 18, blood pressure 157/89 and oxygen saturation 100% on room air. HEENT: Head normocephalic. No trauma. PERRLA. Neck: Supple. No JVD. No masses. Central trachea. Chest: Clear to auscultation. No wheezing. No rales. Abdomen: Soft. Some generalized tenderness to palpation mostly at the level of the periumbilical area. Extremities: No edema. No clubbing. No cyanosis. He does have some amputation of some of the toes. Neurological: Alert and oriented x3. No focal deficits. Generalized weakness and anxiety. LABORATORY: WBC 8.9, hemoglobin 10.8, hematocrit 32.1, and platelets 626,000. Sodium 136, potassium 3.3, chloride 96, bicarbonate 22, BUN 7, creatinine 0.7 glucose 262, calcium 9.3, AST 14, ALT 8, and alkaline phosphatase 88. ASSESSMENT AND PLAN: 1. Melena/hematemesis. This patient has a history of recent EGD. We have started this patient on Protonix, Carafate, and we will consult the Gastroenterology Department for evaluation. Hemoglobin and hematocrit actually is stable. 2. Questionable gastroparesis. This was questioned on the patient's operative note on 11/09 in October of 2018. He was complaining also of nausea upon admission so we put this patient on Reglan that has been prescribed. 3. Type 2 diabetes. We will continue with sliding scale insulin and pattern of blood sugar. I have placed this patient back on his home dose of insulin. 4. Dehydration. He received 3 L of normal saline in the emergency department. We will continue with gentle IV hydration now. 5. Possible sepsis. I do not have any source of infection. He had a previous history of diabetic foot infection, but I do not think he had an infection at this time. WBC is normal. No fever. 6. Anxiety. I will put this patient back on his home medications. cc: Dago Malone MD
[2018-11-25] MEDS: NS 1,000 ML IV SCH (14:27)
[2018-11-25] MEDS: ATIVAN PO SCH ×2 (14:27→22:21)
[2018-11-25] MEDS ORDERED: REMERON PO SCH (21:00)
[2018-11-25] MEDS: ICAR-C PO SCH (22:20)
[2018-11-26] MEDS: DILAUDID IV PRN ×4 (01:41→11:52)
[2018-11-26] MEDS: ZOFRAN IV PRN ×2 (01:42→08:17)
[2018-11-26] MEDS: CARAFATE LIQUID PO SCH ×2 (01:46→08:17)
--- NOTE | 2018-11-26 02:41 | GASTROENTEROLOGY CONSULTATION ---
DATE: 11/25/2018 REASON FOR CONSULTATION: Hematemesis, melena. HISTORY OF PRESENT ILLNESS: Mr. Miguel A Castillo is a 37-year-old gentleman with past medical history significant for poorly controlled insulin-dependent diabetes, GERD with LA grade D esophagitis seen on recent EGD, chronic anemia, gastroparesis, constipation, who presented on 11/24 with 2 to 3 days of melenic stools and episodes of scant coffee-grounds emesis. He complains of associated epigastric pain as well. It is unclear if he has been taking his acid reflux medicine, as the patient has a history of noncompliance with his diabetes medications. On admission, he is found to have a blood sugar of 573. The patient reports improvement of his nausea and vomiting as well as resolution of melenic stools since discharge. PAST MEDICAL HISTORY: As per HPI. He also has a history of left foot osteomyelitis status post I and D, he has had multiple amputations, nicotine dependence, medication noncompliance, hypertension. PAST SURGICAL HISTORY: I and D of the left foot with 2nd metatarsal head amputation and placement of wound VAC due to osteomyelitis in August 2018, multiple metatarsal amputation of the left foot. ALLERGIES: Sulfa and vancomycin. SOCIAL HISTORY: Prior smoker, prior alcohol use. No drug use. HOME MEDICATIONS: Iron, vitamin C, Remeron, Norvasc, lisinopril, Zanaflex, glargine, NovoLog, Carafate, Ambien, Protonix, lorazepam, [place], Phenergan. FAMILY HISTORY: No family history of GI malignancies. REVIEW OF SYSTEMS: As per HPI, otherwise 12-point review of systems negative. PHYSICAL EXAMINATION: Vital Signs: Temperature 98.6 degrees, heart rate 87, respiratory rate 18, blood pressure 155/85, O2 saturation 100% on room air. General: Patient is awake, alert, oriented, no acute distress. HEENT: Sclerae anicteric. Moist mucous membranes. Oral ulcers. Neck: Supple. No JVD or lymphadenopathy. Cardiac: Regular rate and rhythm. No murmurs. Lungs: Clear to auscultation bilaterally. Abdomen: Nondistended. Bowel sounds present. Tenderness to palpation in the epigastric region. No rebound or guarding. Extremities: No clubbing, cyanosis, or edema. Neurologic: Nonfocal. The patient is ambulatory. LABS: Hemoglobin is above baseline at 10.8, white count 8.9, platelets 626,000. INR is normal at 0.88. Sodium 136, potassium 3.3, chloride 96, bicarb 22, BUN 7, creatinine 0.7. Blood glucose of 262 from 573 on admission. LFTs are within normal limits. UA shows glucosuria. IMAGING: Chest x-ray, no acute disease. CT abdomen and pelvis showed mild splenomegaly, otherwise no acute process. ASSESSMENT AND PLAN: 1. Mr. Miguel A Castillo is a 37-year-old gentleman with poorly controlled insulin-dependent diabetes complicated by gastroparesis, who was recently hospitalized with diabetic ketoacidosis and intractable nausea, vomiting. EGD at that time showed LA grade D esophagitis, likely from recurrent vomiting. He presents now with melenic stools and scant hematemesis with an H and H above baseline, likely from known esophagitis. I suspect that the patient had not been taking his PPI and Carafate as directed, and his blood sugars have been out of control, which could have led to gastroparesis exacerbation. He has improved since hospitalization with supportive care and IV fluids. He is on a PPI twice daily currently as well as Carafate q.6 hours. We will also put him on Reglan for his gastroparesis and Zofran as needed. Recommend minimizing narcotics and other constipating medications for his anemia. We will continue iron and vitamin C, and advance his diet as tolerated. He is currently tolerating a diabetic diet. 2. For his diabetes, he is on sliding scale insulin as well as long-acting insulin. 3. For his hypertension, we will continue him on Norvasc, lisinopril. He is currently on empiric antibiotics for concern of possible sepsis. Thank you for this consult. We will follow with you. Please call with any questions or concerns.
[2018-11-26] MEDS: REGLAN IV SCH ×2 (04:42→11:51)
[2018-11-26] MEDS: PROTONIX IV SCH (04:42)
[2018-11-26] MEDS: NS 1,000 ML IV SCH ×2 (04:42→12:32)
[2018-11-26] MEDS: HUMALOG SUBQ SCH ×2 (06:21→12:32)
[2018-11-26 07:25] LABS: HEMATOCRIT 32.1 % (42.0-52.0); HEMOGLOBIN 10.7 g/dL (14.0-18.0)
[2018-11-26 07:57] LABS: AGAP 10; ALB/GLOB RATIO 1.4; ALBUMIN 3.7 g/dL (3.5-5.0); ALKALINE PHOSPHATASE 79 U/L (32-122); BUN 3 mg/dL (8-22); CALCIUM 8.9 mg/dL (8.8-10.2); CHLORIDE 98 mmol/L (98-107); COSMO 271; CREATININE 0.6 mg/dL (0.7-1.2); ESTIMATED GFR > 60; GLUCOSE 147 mg/dL (70-104); GOT 13 U/L (10-34); GPT 7 U/L (10-44); MAGNESIUM 1.5 mg/dL (1.5-2.7); POTASSIUM 3.4 mmol/L (3.5-5.1); SODIUM 136 mmol/L (136-145); TCO2 28 mmol/L (25-35); TOTAL PROTEIN 6.4 g/dL (6.3-8.3)
[2018-11-26 08:01] VITALS: BP 146/83
[2018-11-26] MEDS ORDERED: KLOR-CON PO ONE (08:04)
[2018-11-26] MEDS: KEFZOL 2 GM/D5W 2 GM/50 ML IVPB IV SCH (08:17)
[2018-11-26] MEDS: NORVASC PO SCH (08:17)
[2018-11-26] MEDS: ICAR-C PO SCH (08:19)
[2018-11-26] MEDS: BASAGLAR SUBQ SCH (08:19)
[2018-11-26] MEDS: ATIVAN PO SCH (08:19)
[2018-11-26] MEDS ORDERED: DULCOLAX PR SCH (09:00)
[2018-11-26] MEDS ORDERED: PRINIVIL PO SCH (09:00)
--- NOTE | 2018-11-26 15:06 | GASTROENTEROLOGY PROGRESS NOTE ---
DATE: 11/26/2018 SUBJECTIVE: He is resting in bed. He is feeling better. Denies any nausea or vomiting, denies any fevers, rigors, chills. He is eating better. His abdominal pain is slightly improving. OBJECTIVE: Vital signs: Temperature 97.9, pulse rate 101, respiratory rate 22, blood pressure 146/83, saturating 100% room air. Body weight of 231 pounds 2 ounces. BMI of 31.3 kg/m2. General Appearance: Moderately-built lying in bed, in no acute distress. HEENT: Mild pallor. No icterus. Pupils equal, reactive to light and accommodation. Neck: Supple. Abdomen: Soft, nondistended. Mild discomfort in the epigastrium. No rebound or guarding. Extremities: No cyanosis, clubbing, edema. Neurologic: Alert, awake, oriented x3. LABORATORY DATA: Hemoglobin and hematocrit is 10.7 and 32.1. Sodium 136, potassium 3.4, chloride 98, bicarb 20, anion gap 10, BUN of 3, creatinine 0.6, glucose of 147, calcium is 8.9. Magnesium 1.5. Total bilirubin is 0.2, AST 13, ALT 7. Alkaline phosphatase 79, total protein 6.4, albumin of 3.7, lactate of 3. Acetone level is negative and blood culture x2 negative at 48 hours. Stool for occult blood is negative. IMPRESSION AND PLAN: 1. Uncontrolled diabetes mellitus. 2. Diabetic gastroparesis. 3. Severe reflux esophagitis seen on EGD in October 2018. 4. Melena. 5. History of recent hematemesis, likely from severe esophagitis. 6. Epigastric pain. 7. Mild obesity. 8. Constipation. 9. Hypertension. RECOMMENDATIONS: 1. We will continue with current management with Protonix twice daily for 3 months. He will continue on Carafate 1 g q.6 hours for 6 weeks. He will continue on Reglan 10 mg p.o. q.6 hours and hold for side effects like dystonia and tardive dyskinesia. 2. Counseled the patient to keep a good control of diabetes. 3. The patient will take MiraLAX 17 g once daily for intermittent constipation. 4. We will give him Dulcolax while he is in the hospital. 5. Anemia. I will start him on iron-C b.i.d. 6. The above plan of care was discussed with the patient and all questions answered. Please call us with any further questions. cc: MD Cj Bellamy MD MTDHarsha
--- NOTE | 2018-11-27 03:29 | DISCHARGE SUMMARY ---
ADMISSION DATE: 11/24/2018 DISCHARGE DATE: 11/26/2018 DIAGNOSES: 1. Melena, hematemesis. 2. Questionable gastroparesis. 3. Diabetes mellitus type 2, noncontrolled. 4. Dehydration, resolved. 5. Anxiety. 6. Possible sepsis. CONSULTS: Dr. Maynor Conti, gastroenterology. DIAGNOSTICS: 1. Microbiology: Blood cultures x2 revealed no growth after 48 hours. 2. Stool for occult blood negative. 3. Chest x-ray revealed no acute disease. 4. CT of the abdomen and pelvis revealed mild splenomegaly with no acute processes. 5. X-ray of his left foot revealed stable and indeterminate erosion of the 2nd metatarsal head, new bony erosions. No fracture or dislocation. HOSPITAL COURSE: Mr. Castillo presented to the emergency room complaining of epigastric pain, melena, and hematemesis. He did have a recent EGD which revealed grade 4 gastroenteritis with severe esophagitis and possible gastroparesis. He was placed on a Protonix drip with Carafate q.6 hours and Reglan IV was instituted. His occult stool was negative. He had no further hematemesis. After rehydration, tachycardia resolved. He has tolerated diabetic diet, eating 100% of each meal. Thankfully, he is ready for discharge. DISCHARGE VITAL SIGNS: Blood pressure is 121/58 with a heart rate of 90, respirations 18, temperature is 98.1 degrees oral with room air saturations 98-100. DISCHARGE PHYSICAL EXAMINATION: Cardiovascular: Regular rate and rhythm. S1 and S2 appreciated. He has no lower extremity edema. Calves are nontender bilateral. Pulmonary: Breath sounds are clear with no increased work of breathing noted. Chest rises and falls symmetric with respiration. Chest wall: Nontender to palpation. Gastrointestinal: Abdomen is soft, nondistended. He does have some epigastric tenderness with bowel sounds throughout. Neurologic: He is alert and oriented x3. DISCHARGE MEDICATIONS: 1. Ambien 10 mg p.o. at bedtime. 2. Carafate 1 g before meals and at bedtime. 3. Protonix 40 mg p.o. daily. 4. Reglan 5 mg p.o. 4 times a day. 5. Dulcolax suppositories b.i.d. as needed. 6. Ambien 10 mg p.o. at bedtime. 7. Ativan 1 mg p.o. t.i.d. as prehospitalization. 8. Lisinopril 20 mg p.o. daily. 9. Icar-C 1 p.o. b.i.d. 10. Basaglar insulin 70 units subcutaneous b.i.d. 11. Clonidine 0.1 mg p.o. b.i.d. 12. Norvasc 5 mg p.o. b.i.d. FOLLOW-UP: He needs to follow up with Dr. Horne in 2 to 3 weeks. He needs to call the office 11/28/2018, to schedule an appointment. Dr. Cj Anaya, his primary care provider, needs to be seen in 1 to 2 weeks. He was instructed to call to be seen sooner or return to the emergency room for any syncope, dizziness, chest pain, palpitations, black or bloody vomitus or stools, hematuria, dysuria, frequency, urgency or for any concerns that he may have. He is being discharged home in stable condition with family members. TIME SPENT: This is a greater than 30 minute discharge. Dictated by RAMÓN White for Dago Malone MD This chart was documented by, RAMÓN White and accurately reflects the services performed, treatment plan and medical decisions as attested by the providers signature Dago Malone MD. cc: RAMÓN White MD
== END 2018-11-26 13:05 | disposition home or self-care (01) | DRG 872 ==
LOC: ED 08:35 → 3N 17:36
PROVIDERS: ATTEND Internal Medicine
CPT/HCPCS: 71020; 71046; 73620; 74177; 80053; 81001; 82009; 82270; 82550; 82805; 82948; 83605; 83690; 83735; 84484; 85014; 85018; 85025; 85610; 85730; 87040; 93005; 96365; 96367; 96375; 96376; 99285; A9270; C9113; J0690; J1170; J1815; J2270; J2405; J2543; J2765; J7030; Q9967; S0164; XXXXX

== ENCOUNTER 2019-01-11 16:19 | Inpatient (IN) ==
[2019-01-11] MEDS ORDERED: HUMULIN R IV ONE (17:09)
[2019-01-11] MEDS ORDERED: NS 1,000 ML IV ONE ×2 (17:09→18:16)
[2019-01-11] MEDS ORDERED: MORPHINE IV ONE (17:10)
[2019-01-11] MEDS ORDERED: ZOFRAN IV ONE (17:10)
[2019-01-11 17:42] LABS: BASO# 0.02 X1000 (0.0-0.2); BASO% 0.1 % (0.0-0.8); HEMATOCRIT 41.1 % (42.0-52.0); IMM GRAN# 0.03 X1000 (0.0-0.04); IMM GRAN% 0.2 % (0.0-0.5); LYMPH# 0.72 X1000 (1.2-3.4); LYMPH% 4.2 % (20.5-51.1); MCH 26.1 PG (27-31); MCHC 34.1 g/dL (33-37); MCV 76.7 FL (81-99); MONO# 0.28 X1000 (0.11-0.59); MONO% 1.6 % (1.7-9.3); MPV 9.7 FL (7.4-10.4); NEUT# 16.13 X1000 (1.4-6.5); NEUT% 93.9 % (42.2-75.2); PLT 686 X1000 (130-400); RBC 5.36 XMIL (4.7-6.1); RDW 14.8 % (11.5-14.5); WBC 17.18 X1000 (4.8-10.8)
[2019-01-11 18:05] LABS: AGAP 32; CHLORIDE 91 mmol/L (98-107); POTASSIUM 4.5 mmol/L (3.5-5.1); SODIUM 144 mmol/L (136-145); TCO2 21 mmol/L (25-35)
[2019-01-11 18:06] LABS: ALB/GLOB RATIO 1.3; ALBUMIN 5.2 g/dL (3.5-5.0); ALKALINE PHOSPHATASE 140 U/L (32-122); BUN 19 mg/dL (8-22); CALCIUM 10.1 mg/dL (8.8-10.2); COSMO 309; CREATININE 1.1 mg/dL (0.7-1.2); ESTIMATED GFR > 60; GOT 14 U/L (10-34); GPT 12 U/L (10-44); TOTAL BILIRUBIN 0.37 mg/dL (0.20-1.00); TOTAL PROTEIN 9.1 g/dL (6.3-8.3)
[2019-01-11 18:13] LABS: GLUCOSE 457 mg/dL (70-104)
[2019-01-11] MEDS ORDERED: REGLAN IV ONE (18:16)
[2019-01-11 18:43] LABS: ALLEN TEST YES; BE -1.7 mmoll (-3.0-3.0); BLOOD TYPE ARTERIAL; HCO3-(ACT) 23.6 mmoll (20.0-26.0); METHB 1.2 % (0.0-1.5); MODALITY ROOM AIR; O2(CT) 17.4 mL/dL (15.0-23.0); O2HB 95.4 % (95.0-99.0); PCO2(98.6) 33 mmHg (35-45); PO2(98.6) 86 mmHg (60-100); SAMPLE BLOOD; SAO2 97.8 % (95.0-100.0); THB 12.9 g/dL (11.5-17.4); pH(98.6) 7.43 (7.35-7.45)
[2019-01-11 19:06] LABS: URINE SOURCE CLEAN CATCH
[2019-01-11 19:12] LABS: BILIRUBIN URINE NEGATIVE (NEGATIVE); BLOOD URINE NEGATIVE (NEGATIVE); COLOR STRAW; GLUCOSE URINE >1000 mg/dL (NEGATIVE); KETONE URINE >150 mg/dL (NEGATIVE); LEUKOCYTES URINE NEGATIVE (NEGATIVE); NITRITE URINE NEGATIVE (NEGATIVE); PROTEIN URINE 50 mg/dL (NEGATIVE); SP GRAVITY URINE 1.028; TURBIDITY URINE CLEAR (CLEAR); UR EPITHELIAL CELLS <10 /HPF (<10); URINE BACTERIA NEGATIVE /HPF; URINE RBC <10 /HPF (<10); URINE WBC <10 /HPF (<10); UROBILINOGEN URINE NORMAL (NORMAL)
--- NOTE | 2019-01-11 21:03 | Diag Imaging Result Doc PS360 ---
CT ABD/PELVIS W/IV CONT ONLY - 01/11/2019 INDICATION: colitis COMPARISON: 11/24/2018 FINDINGS: The lung bases are clear and the heart size is normal. The liver, gallbladder, spleen, pancreas, adrenals, and kidneys are normal. There is moderate diffuse constipation. No bowel obstruction or inflammation. Urinary bladder, prostate, and rectum are normal. IMPRESSION: Constipation. Otherwise negative. This exam was performed using automated exposure control, adjustment of mA or kV according to patient size, and/or use of iterative reconstruction technique Electronically signed by Remigio Mcguire 01/11/2019 9:01 PM
[2019-01-11] MEDS ORDERED: HUMALOG SUBQ ONE (22:16)
[2019-01-11] MEDS ORDERED: LANTUS INSULIN SUBQ ONE (22:17)
[2019-01-11] MEDS ORDERED: DILAUDID IM STA (22:17)
[2019-01-11] MEDS ORDERED: PHENERGAN IM ONE (22:17)
[2019-01-12] MEDS ORDERED: TYLENOL PO PRN (00:27)
[2019-01-12] MEDS ORDERED: SODIUM CHLORIDE 0.9% INJ SCH (00:45)
[2019-01-12] MEDS ORDERED: HUMULIN R 100 UNIT in NS 100 ML IV SCH (00:45)
[2019-01-12] MEDS ORDERED: NS 1,000 ML IV ONE (00:48)
[2019-01-12] MEDS: DULCOLAX PR SCH ×4 (01:00→20:13)
[2019-01-12] MEDS ORDERED: APRESOLINE IV PRN (01:17)
[2019-01-12] MEDS ORDERED: D5 1/2 NS 1,000 ML ONE (02:52)
[2019-01-12] MEDS: D5 1/2 NS 1,000 ML IV SCH ×4 (03:01→22:36)
[2019-01-12 03:24] LABS: AGAP 17; BUN 19 mg/dL (8-22); CALCIUM 8.3 mg/dL (8.8-10.2); CHLORIDE 96 mmol/L (98-107); COSMO 279; ESTIMATED GFR > 60; GLUCOSE 56 mg/dL (70-104); MAGNESIUM 1.6 mg/dL (1.5-2.7); PHOSPHORUS 2.2 mg/dL (2.7-4.5); POTASSIUM 3.2 mmol/L (3.5-5.1); SODIUM 140 mmol/L (136-145); TCO2 27 mmol/L (25-35)
[2019-01-12] MEDS ORDERED: POTASSIUM CHLORIDE 40 MEQ/SWI 40 MEQ/100 ML IVPB IV PRN (03:30)
[2019-01-12] MEDS ORDERED: SODIUM BICARBONATE 8.4% 100 MEQ in STERILE WATER INJ. 500 ML IV PRN (03:30)
[2019-01-12] MEDS ORDERED: SODIUM PHOSPHATE 30 MMOL in D5W 250 ML IV PRN (03:30)
[2019-01-12] MEDS ORDERED: POTASSIUM CHLORIDE 20 MEQ/SWI 20 MEQ/100 ML IVPB IV PRN (03:30)
[2019-01-12] MEDS: NS 1,000 ML IV SCH ×3 (03:30→05:30)
--- NOTE | 2019-01-12 04:44 | HISTORY AND PHYSICAL ---
CHIEF COMPLAINT: Abdominal pain, nausea, and vomiting. HISTORY OF PRESENT ILLNESS: A 38-year-old male, well known from our service, past medical history of uncontrolled type 2 diabetes, hypertension, left foot osteomyelitis with previous amputation, and multiple I and D's, hypertension, nicotine dependence, presented to the emergency department with a chief complaint of nausea, vomiting, and abdominal pain for 1 day. He was recently discharged on 11/26/2018 due to also possible gastroparesis. He was evaluated at that time by Gastroenterology Department, and actually he is scheduled to follow up with them as an outpatient. Because of the abdominal pain, a CT abdomen was performed and showed severe constipation. As per the patient, his last bowel movement was probably last Wednesday, 4 days ago. Laboratory showed an elevated white blood cell count, thrombocytosis, glucose level 457, with an anion gap of 32, and acetone level small. This patient is in DKA, so we will transfer this patient to the [facility] unit. He will be placed on an insulin drip, DKA protocol. We will treat his severe constipation as well. We will monitor this patient closely with laboratory and telemetry. He denies headache, chest pain, diarrhea, back pain, dizziness, or shortness of breath. REVIEW OF SYSTEMS: All the 14-points of review of systems were reviewed. All of them negative except as per HPI. PAST MEDICAL HISTORY: Left foot osteomyelitis, status post I and D, uncontrolled diabetes type 2, medical noncompliance, hypertension, nicotine dependence. 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 ALLERGIES: Sulfa and vancomycin. 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 He stopped smoking about 1 to 2 years ago. HOME MEDICATIONS: It will be listed by the nursing staff, but he recently was discharged on Ambien 10 mg p.o. at bedtime, Carafate 1 g before meals and at bedtime, Protonix 40 mg p.o. daily, Reglan 5 mg p.o. 4 times a day, Dulcolax suppositories b.i.d. as needed, Ativan 1 mg p.o. t.i.d., lisinopril 20 mg p.o. daily, ICar-C 1 tablet p.o. b.i.d., insulin Basaglar 70 units subcutaneously twice a day, clonidine 1 mg p.o. b.i.d., and Norvasc 5 mg p.o. b.i.d. PHYSICAL EXAMINATION: VITAL SIGNS: Temperature 98.5 degrees, pulse 126, respiratory rate 19, blood pressure 176/113, oxygen saturation 97% on room air. HEENT: Head normocephalic, atraumatic. PERRLA. NECK: Supple. No JVD. No masses. Central trachea. CHEST: Clear to auscultation. No wheezing. No rales. ABDOMEN: Soft, generalized tenderness to palpation mostly at the level of the epigastric and periumbilical area. EXTREMITIES: No edema, no clubbing, no cyanosis. NEUROLOGICAL: Patient is alert and oriented x3. No focal deficits. LABORATORY: WBC 17.1, hemoglobin 14, hematocrit 41.1, platelet 686. Sodium 144, potassium 4.5, chloride 91, bicarbonate 21, BUN 19, creatinine 1.1. Glucose 457, calcium 10.1, AST 14, ALT 12, alkaline phosphatase 140, albumin 5.2. ASSESSMENT AND PLAN: 1. Diabetic ketoacidosis. He will be placed on the DKA protocol. We will get also troponin level. We will monitor this patient closely in the [facility]IC unit. He already received 2 L of fluid and I will give him a 3rd L of normal saline. 2. Type 2 diabetes. I will get a hemoglobin A1c, insulin drip. Will monitor. 3. Dehydration. He already received 2 L of normal saline, I will give him an extra L, and I will continue with maintenance. 4. Anxiety. I will put this patient back on home medications once they are reconciled and he is tolerating p.o. 5. Gastroparesis. I have placed this patient on Reglan 4 times a day and I will monitor. 6. Leukocytosis. Will monitor. Likely reactive. I will get blood cultures. cc: Dago Malone MD
[2019-01-12] MEDS: POTASSIUM CHLORIDE 20% LIQUID PO PRN ×2 (04:53→21:30)
[2019-01-12] MEDS: PROTONIX IV SCH ×2 (04:54→11:53)
[2019-01-12] MEDS: REGLAN IV SCH ×3 (04:54→16:06)
[2019-01-12] MEDS: MAGNESIUM SULFATE 2 GM/S.W.I. 2 GM/50 ML IVPB IV PRN ×2 (04:55→09:05)
[2019-01-12 06:15] LABS: HEMOGLOBIN A1C 10.4 % (4.8-6.0)
[2019-01-12] MEDS: LACTULOSE PO SCH ×4 (06:20→20:13)
[2019-01-12] MEDS: LOVENOX SUBQ SCH (06:20)
[2019-01-12] MEDS: ZOFRAN IV PRN ×3 (06:30→20:05)
[2019-01-12] MEDS: MORPHINE IV PRN ×3 (06:30→20:05)
--- NOTE | 2019-01-12 07:12 | EKG Report ---
Test Performed on : 01/11/2019 5:41:34 PM Test Reason : hr 135 Blood Pressure : / mmHG Vent. Rate : 127 BPM Atrial Rate : 127 BPM P-R Int : 130 ms QRS Dur : 088 ms QT Int : 342 ms P-R-T Axes : 059 014 055 degrees QTc Int : 497 ms Sinus tachycardia. Inferior infarct , age undetermined Abnormal ECG When compared with ECG of 24-NOV-2018 09:02, (Unconfirmed) premature atrial complexes. are no longer present Vent. rate has increased BY [address] now depressed in Lateral leads Nonspecific T wave abnormality now evident in Lateral leads Unconfirmed Result
[2019-01-12] MEDS: 1/2 NS 1,000 ML IV SCH ×2 (07:19→16:06)
--- NOTE | 2019-01-12 07:45 | PROVIDER DOCUMENTATION ---
This chart was entered by Jose J Gordillo Scribe, acting as scribe for Aditya Lay MD. HPI-Abdominal Pain/GI Problem <CarlosCj Nelson. - Last Filed: 01/11/19 23:36> - General Source: patient - History of Present Illness-ABD Nature of Presenting Problems: Pt is a 38 yom who presents to the ED with a CC of abdominal pain. Pt states he has had HBP and has been vomiting for 14 hours. Pt states he had a low grade fever last night. Pt states he has been a diabetic for 13 years. Pt states a hx of gastroporesis and colitis. Pt states his last BM was two days ago. Pt also complains of having pain in his feet. Pt has had an amputation to his right foot. Abdominal Pain Onset Location: reports: generalized abdomen Pain Radiation: reports: no radiation Quality of Pain: reports: pressure Onset/Duration: reports: other (14 hours ago) Timing: reports: still present Activities at Onset: reports: none Exposure to sick contacts?: No Associated Symptoms: reports: fever/chills (Low grade fever), nausea, vomiting Last BM: 2 days ago Dark Stools Present?: reports: none noticed Rectal Bleeding: reports: none Rectal Pain: reports: none Bruising or Bleeding Gums?: No Similar Symptoms Previously?: Yes Recently seen or treated by another doctor?: Yes <Aditya Lay - Last Filed: 01/12/19 07:45> - General Chief Complaint: Abdominal Pain Stated Complaint: VOMITING Time Seen by Provider: 01/11/19 17:05 Allergies/Adverse Reactions: Patient Allergies Allergy/AdvReac Type Severity Reaction Status Date / Time Sulfa (Sulfonamide Allergy HIVES Verified 11/02/18 13:22 Antibiotics) vancomycin AdvReac RASH Verified 11/02/18 13:22 Home Medications: Home Medication List Medication Instructions Recorded Confirmed Last Taken Type Clonidine [Catapres] 0.1 mg PO BID PRN 02/11/17 11/24/18 10/31/18 History Insulin Aspart [Novolog] 1 dose SQ TID 01/17/18 11/24/18 11/01/18 History Iron Carbonyl/Ascorbic Acid 1 each PO BID tablet 01/26/18 11/24/18 11/02/18 Rx [Icar-C] Amlodipine [Norvasc] 5 mg PO BID tablet 06/27/18 11/24/18 11/24/18 09:00 Rx Lisinopril 30 mg PO DAILY #0 08/18/18 11/24/18 11/02/18 Rx Insulin Glargine [Basaglar] 70 unit SUBQ BID #2 insuln.pen 09/15/18 11/24/18 11/02/18 Rx Pantoprazole Sodium [Protonix] 40 mg PO DAILY #60 tablet.dr 11/09/18 11/24/18 Unknown Rx Sucralfate [Carafate Liquid] 1 gm PO 0700,1100,1600,2100 #120 11/09/18 11/24/18 Unknown Rx udc Lorazepam 1 mg PO TID@0900,1500,2100 11/24/18 11/24/18 11/24/18 History Bisacodyl [Dulcolax] 10 mg FL BID supp 11/26/18 Unknown Rx Metoclopramide HCl [Reglan] 5 mg PO 4XDAY #120 tab 11/26/18 Unknown Rx Zolpidem [Ambien] 10 mg PO HS PRN #10 tab 11/26/18 Unknown Rx Review of Systems - Adult - REVIEW OF SYSTEMS - ADULT Constitutional: reports: see HPI, fever. denies: chills, fatique, night sweats Eyes: reports: no symptoms reported Ears, Nose, Mouth & Throat: reports: no symptoms reported Cardiovascular: reports: no symptoms reported Respiratory: reports: no symptoms reported Gastrointestinal: reports: abdominal pain, nausea, vomiting. denies: hematemesis, diarrhea, difficulty swallowing, rectal bleeding Genitourinary: reports: no symptoms reported Musculoskeletal: reports: no symptoms reported Integumentary: reports: no symptoms reported Neurological: reports: no symptoms reported Psychiatric: reports: no symptoms reported Endocrine: reports: no symptoms reported Hematologic/Lymphatic: reports: no symptoms reported Allergic/Immunologic: reports: no symptoms reported All Other Systems: Reviewed and Negative <Aditya Lay - Last Filed: 01/12/19 07:45> Past History - Adult - PAST MEDICAL HISTORY-ADULT Review of Records: reports: Old Records Reviewed, Nursing Assessment Review, Medications Reviewed Major Childhood Illnesses: reports: denies history Cardiovascular: reports: HTN Respiratory: reports: denies history Gastrointestinal: reports: denies history Obstetrical/Gynecological: reports: denies history Genitourinary: reports: kidney disease, other (Sofi history of) Musculoskeletal: reports: denies history Neurological: reports: denies history Endocrine/Immune: reports: Diabetes Other Conditions: reports: MRSA - PRIOR SURGERIES/PROCEDURES Surgical/Procedure History: reports: recent surgery (09/12/18), reviewed, not pertinent, orthopedic (extremity) - IMMUNIZATION STATUS Childhood Immunizations: See Nurse Assessment Flu Vaccine: See Nurse Assessment - FAMILY HISTORY Family History: reviewed, not pertinent - SOCIAL HISTORY Smoking: quit greater than 1 year (Cigarettes), cigarettes, chew Substance Use: alcohol Alcohol Use Frequency: sober (former use) <Aditya Lay - Last Filed: 01/12/19 07:45> Physical Exam-General - PHYSICAL EXAM-ADULT Initial Vital Signs Reviewed: Yes - CONSTITUTIONAL General Appearance: alert, mild distress, obese. negative: thin, anxious, lethargic, slow to respond - EYES Eyes: PERRL/EOMI. negative: meningismus, pale conjunctivae, photophobia - NECK Neck: non-tender, full range of motion, supple. negative: limited range of motion, lymphadenopathy, meningismus - RESPIRATORY Respiratory: chest non-tender, lungs clear, normal breath sounds, no pleuratic chest pain, no respiratory distress, no accessory muscle use. negative: respiratory distress, decreased breath sounds, accessory muscle use, crackles, stridor - CARDIOVASCULAR Cardiovascular: normal peripheral pulses, regular rate, rhythm, no edema, no gallop, no JVD, no murmur. negative: JVD, bradycardia, tachycardia, diastolic murmur, systolic murmur - GASTROINTESTINAL (ABDOMEN) Abdominal Exam: tenderness. negative: non tender, hepatomegaly, splenomegaly - MUSCULOSKELETAL Extremity: normal range of motion, non-tender. negative: deformity, erythema, inflammation - SKIN Integumentary: normal color, warm/dry. negative: abrasion(s), jaundice, laceration(s) - NEUROLOGIC Neurologic: grossly normal. negative: aphasia, facial droop - PSYCHIATRIC Psych/Mental Status: normal mood/affect, oriented x 3. negative: disoriented x 3, anxious, disheveled, depressed affect <Aditya Lay - Last Filed: 01/12/19 07:45> Progress - PLAN OF CARE/RESULTS Progress/Plan/Lab Results: Vital Signs - 8 hr 01/11/19 16:33 01/11/19 16:50 01/11/19 17:29 Temperature 98.5 F Pulse Rate 135 H 135 H 130 H Respiratory Rate 18 14 14 Blood Pressure 165/113 187/108 172/111 O2 Sat by Pulse Oximetry 98 96 97 01/11/19 18:02 01/11/19 18:32 01/11/19 19:02 Temperature Pulse Rate 134 H 138 H 125 H Respiratory Rate 18 16 33 H Blood Pressure 153/112 154/122 176/113 O2 Sat by Pulse Oximetry 95 96 96 01/11/19 19:10 Temperature Pulse Rate 126 H Respiratory Rate 19 Blood Pressure O2 Sat by Pulse Oximetry 97 Laboratory Results - last 24 hr 01/11/19 01/11/19 01/11/19 16:43 16:54 16:54 WBC 17.18 H RBC 5.36 Hgb 14.0 Hct 41.1 L MCV 76.7 L MCH 26.1 L MCHC 34.1 RDW Std Deviation 14.8 H Plt Count 686 H MPV 9.7 Immature Gran % (Auto) 0.2 Neut % (Auto) 93.9 H Lymph % (Auto) 4.2 L [place] % (Auto) 1.6 L Eos % (Auto) 0.0 Baso % (Auto) 0.1 Immature Gran # (Auto) 0.03 Neut # (Auto) 16.13 H Lymph # (Auto) 0.72 L [place] # (Auto) 0.28 Eos # (Auto) 0.00 Baso # (Auto) 0.02 Specimen Type Sample Site pH pCO2 pO2 HCO3 Base Excess Oxyhemoglobin ABG O2 Sat (Calculated) ABG O2 Saturation ABG Carboxyhemoglobin ABG Methemoglobin Harry Test A-a O2 Difference Total Hemoglobin Lactate Blood Gas Modality FiO2 % Sodium 144 Potassium 4.5 Chloride 91 L Carbon Dioxide 21 L Anion Gap 32 BUN 19 Creatinine 1.1 Estimated GFR/1.73 m2 > 60 BUN/Creatinine Ratio 17 Glucose 457 H* POC Glucose 469 H D Calculated Osmolality 309 Calcium 10.1 Total Bilirubin 0.37 AST 14 ALT 12 Alkaline Phosphatase 140 H Total Protein 9.1 H Albumin 5.2 H Globulin 3.9 Albumin/Globulin Ratio 1.3 Lipase Plasma Lactate Urine Source Urine Color Urine Turbidity Urine pH Ur Specific [place] Urine Protein Ur Glucose (Stick) Ur Ketones (Stick) Urine Blood Urine Nitrite Urine Bilirubin Urobilinogen Dipstick Urine Leukocytes Urine WBC (Auto) Urine RBC (Auto) U Epithel Cells (Auto) Urine Bacteria (Auto) Acetone Level 01/11/19 01/11/19 01/11/19 16:54 16:54 17:36 WBC RBC Hgb Hct MCV MCH MCHC RDW Std Deviation Plt Count MPV Immature Gran % (Auto) Neut % (Auto) Lymph % (Auto) [place] % (Auto) Eos % (Auto) Baso % (Auto) Immature Gran # (Auto) Neut # (Auto) Lymph # (Auto) [place] # (Auto) Eos # (Auto) Baso # (Auto) Specimen Type Sample Site pH pCO2 pO2 HCO3 Base Excess Oxyhemoglobin ABG O2 Sat (Calculated) ABG O2 Saturation ABG Carboxyhemoglobin ABG Methemoglobin Harry Test A-a O2 Difference Total Hemoglobin Lactate Blood Gas Modality FiO2 % Sodium Potassium Chloride Carbon Dioxide Anion Gap BUN Creatinine Estimated GFR/1.73 m2 BUN/Creatinine Ratio Glucose POC Glucose Calculated Osmolality Calcium Total Bilirubin AST ALT Alkaline Phosphatase Total Protein Albumin Globulin Albumin/Globulin Ratio Lipase 27 Plasma Lactate 2.2 Urine Source Urine Color Urine Turbidity Urine pH Ur Specific [place] Urine Protein Ur Glucose (Stick) Ur Ketones (Stick) Urine Blood Urine Nitrite Urine Bilirubin Urobilinogen Dipstick Urine Leukocytes Urine WBC (Auto) Urine RBC (Auto) U Epithel Cells (Auto) Urine Bacteria (Auto) Acetone Level SMALL A 01/11/19 01/11/19 01/11/19 18:32 18:58 19:00 WBC RBC Hgb Hct MCV MCH MCHC RDW Std Deviation Plt Count MPV Immature Gran % (Auto) Neut % (Auto) Lymph % (Auto) [place] % (Auto) Eos % (Auto) Baso % (Auto) Immature Gran # (Auto) Neut # (Auto) Lymph # (Auto) [place] # (Auto) Eos # (Auto) Baso # (Auto) Specimen Type ARTERIAL Sample Site L RADIAL pH 7.43 pCO2 33 L pO2 86 HCO3 23.6 Base Excess -1.7 Oxyhemoglobin 95.4 ABG O2 Sat (Calculated) 17.4 ABG O2 Saturation 97.8 ABG Carboxyhemoglobin 1.30 ABG Methemoglobin 1.2 Harry Test YES A-a O2 Difference 22.0 Total Hemoglobin 12.9 Lactate 2.20 Blood Gas Modality ROOM AIR FiO2 % 21.0 Sodium Potassium Chloride Carbon Dioxide Anion Gap BUN Creatinine Estimated GFR/1.73 m2 BUN/Creatinine Ratio Glucose POC Glucose 341 H Calculated Osmolality Calcium Total Bilirubin AST ALT Alkaline Phosphatase Total Protein Albumin Globulin Albumin/Globulin Ratio Lipase Plasma Lactate Urine Source CLEAN CATCH Urine Color STRAW Urine Turbidity CLEAR Urine pH 5.0 Ur Specific [place] 1.028 Urine Protein 50 A Ur Glucose (Stick) >1000 A Ur Ketones (Stick) >150 A Urine Blood NEGATIVE Urine Nitrite NEGATIVE Urine Bilirubin NEGATIVE Urobilinogen Dipstick NORMAL Urine Leukocytes NEGATIVE Urine WBC (Auto) <10 Urine RBC (Auto) <10 U Epithel Cells (Auto) <10 Urine Bacteria (Auto) NEGATIVE Acetone Level 01/11/19 22:51 WBC RBC Hgb Hct MCV MCH MCHC RDW Std Deviation Plt Count MPV Immature Gran % (Auto) Neut % (Auto) Lymph % (Auto) [place] % (Auto) Eos % (Auto) Baso % (Auto) Immature Gran # (Auto) Neut # (Auto) Lymph # (Auto) [place] # (Auto) Eos # (Auto) Baso # (Auto) Specimen Type Sample Site pH pCO2 pO2 HCO3 Base Excess Oxyhemoglobin ABG O2 Sat (Calculated) ABG O2 Saturation ABG Carboxyhemoglobin ABG Methemoglobin Harry Test A-a O2 Difference Total Hemoglobin Lactate Blood Gas Modality FiO2 % Sodium Potassium Chloride Carbon Dioxide Anion Gap BUN Creatinine Estimated GFR/1.73 m2 BUN/Creatinine Ratio Glucose POC Glucose 312 H Calculated Osmolality Calcium Total Bilirubin AST ALT Alkaline Phosphatase Total Protein Albumin Globulin Albumin/Globulin Ratio Lipase Plasma Lactate Urine Source Urine Color Urine Turbidity Urine pH Ur Specific [place] Urine Protein Ur Glucose (Stick) Ur Ketones (Stick) Urine Blood Urine Nitrite Urine Bilirubin Urobilinogen Dipstick Urine Leukocytes Urine WBC (Auto) Urine RBC (Auto) U Epithel Cells (Auto) Urine Bacteria (Auto) Acetone Level Orders Category Date Time Status FSBS [Finger Stick Blood Sugar (ED)] DIRECTED Care 01/11/19 16:41 Active FSBS [Finger Stick Blood Sugar (ED)] DIRECTED Care 01/11/19 22:18 Active Finger Stick Blood Sugar (ED) DIRECTED Care 01/11/19 18:[address] ABD/PELVIS W/IV CONT ONLY [CT] Stat Exams 01/11/19 18:51 Completed ABG [RESP] Routine Lab 01/11/19 18:32 Completed ACETONE SERUM [CHEM] Stat Lab 01/11/19 16:54 Completed CBC WITH ELECTRONIC DIFF [HEME] Stat Lab 01/11/19 16:54 Completed COMPREHENSIVE METABOLIC PANEL [CHEM] Stat Lab 01/11/19 16:54 Completed LACTATE, PLASMA [CHEM] Stat Lab 01/11/19 17:36 Completed LIPASE [CHEM] Stat Lab 01/11/19 16:54 Completed URINALYSIS W/POSS RFLX CULT [URINALYSIS] Stat Lab 01/11/19 19:00 Completed 0.9% Sodium Chloride Inj [Ns] 1,000 ml Med 01/11/19 17:09 Discontinued IV 999 mls/hr 0.9% Sodium Chloride Inj [Ns] 1,000 ml Med 01/11/19 18:16 Discontinued IV 999 mls/hr Hydromorphone [Dilaudid] Med 01/11/19 22:17 Discontinued 1 mg IM STAT STA Insulin Glargine [Lantus Insulin] Med 01/11/19 22:17 Discontinued 70 unit SUBQ NOW ONE Insulin Human Regular [Humulin R] Med 01/11/19 17:09 Discontinued 10 unit IV NOW ONE Insulin Lispro [Humalog] Med 01/11/19 22:16 Discontinued 20 units SUBQ NOW ONE Metoclopramide [Reglan] Med 01/11/19 18:16 Discontinued 10 mg IV NOW ONE Morphine Med 01/11/19 17:10 Discontinued 2 mg IV NOW ONE Ondansetron [Zofran] Med 01/11/19 17:10 Discontinued 4 mg IV NOW ONE Promethazine [Phenergan] Med 01/11/19 22:17 Discontinued 25 mg IM NOW ONE EKG [EKG] Stat Ther 01/11/19 16:39 Ordered Result Diagrams: 01/11/19 16:54 01/11/19 16:54 - REASSESSMENT Reassessment #1 Time Reassessed: 23:05 Status: unchanged (STILL C/O ABDOMINAL PAIN, WBC 17,AG 32, SMALL KETONES, LA 2.2) - CONSULTS/PCP/HOSPITALIST Notification #1 *Consult/PCP/Hospitalist*: DR WRIGHT Consult Disposition: Admit <Cj Gonzalez - Last Filed: 01/11/19 23:36> - PLAN OF CARE/RESULTS Progress/Plan/Lab Results: Vital Signs - 8 hr 01/11/19 16:33 Temperature 98.5 F Pulse Rate 135 H Respiratory Rate 18 Blood Pressure 165/113 O2 Sat by Pulse Oximetry 98 Laboratory Results - last 24 hr 01/11/19 16:43 POC Glucose 469 H D Orders Category Date Time Status FSBS [Finger Stick Blood Sugar (ED)] DIRECTED Care 01/11/19 16:41 Active EKG [EKG] Stat Ther 01/11/19 16:39 Ordered Result Diagrams: 01/11/19 16:54 01/12/19 02:32 <Aditya Lay - Last Filed: 01/12/19 07:45> Departure - Departure Date of Disposition Decision: 01/11/19 Time of Disposition Decision: 23:40 Certified Medical Emergency: Emergent - Critical Care Note This patient required my direct & personal management of CC.: No <Cj Gonzalez - Last Filed: 01/11/19 23:36> <Aditya Lay - Last Filed: 01/12/19 07:45> - Departure DIAGNOSIS: Abdominal pain, Nausea and vomiting, DKA (diabetic ketoacidosis), Hyperglycemia Disposition: ADMITTED INPATIENT 09 Condition: Fair Attestation - Physician/ AMY Attestation The physician spent face to face time with patient:: Yes Advanced Practice Provider documentation review:: Supervising physician onsite a nd consulted in the evaluation and care of this patient. The physician did have a face to face encounter with the patient. <Cj Gonzalez - Last Filed: 01/11/19 23:36> - Physician/ AMY Attestation The physician spent face to face time with patient:: Yes Advanced Practice Provider documentation review:: Supervising physician onsite and consulted in the evaluation and care of this patient. The physician did have a face to face encounter with the patient. <Aditya Lay - Last Filed: 01/12/19 07:45> This chart was documented by the indicated scribe, (Jose J Gordillo Scribe) and accurately reflects the services I performed and decisions made by me, Aditya Lay MD, as attested by the provider's signature.
[2019-01-12 08:08] LABS: AGAP 18; ALB/GLOB RATIO 1.6; ALBUMIN 4.5 g/dL (3.5-5.0); ALKALINE PHOSPHATASE 110 U/L (32-122); BUN 21 mg/dL (8-22); CALCIUM 8.6 mg/dL (8.8-10.2); CHLORIDE 93 mmol/L (98-107); COSMO 280; CREATININE 0.9 mg/dL (0.7-1.2); GLUCOSE 196 mg/dL (70-104); GOT 12 U/L (10-34); GPT 10 U/L (10-44); MAGNESIUM 1.7 mg/dL (1.5-2.7); POTASSIUM 4.2 mmol/L (3.5-5.1); SODIUM 136 mmol/L (136-145); TCO2 25 mmol/L (25-35); TOTAL BILIRUBIN 0.24 mg/dL (0.20-1.00); TOTAL PROTEIN 7.3 g/dL (6.3-8.3)
[2019-01-12 08:20] LABS: BASO# 0.03 X1000 (0.0-0.2); BASO% 0.2 % (0.0-0.8); EOS# 0.01 X1000 (0.0-0.7); EOS% 0.1 % (0.0-10.0); HEMATOCRIT 32.6 % (42.0-52.0); HEMOGLOBIN 10.7 g/dL (14.0-18.0); IMM GRAN# 0.03 X1000 (0.0-0.04); IMM GRAN% 0.2 % (0.0-0.5); LYMPH# 1.68 X1000 (1.2-3.4); MCH 25.8 PG (27-31); MCHC 32.8 g/dL (33-37); MCV 78.7 FL (81-99); MONO# 0.85 X1000 (0.11-0.59); MONO% 6.6 % (1.7-9.3); MPV 9.4 FL (7.4-10.4); NEUT# 10.34 X1000 (1.4-6.5); NEUT% 79.9 % (42.2-75.2); PLT 469 X1000 (130-400); RBC 4.14 XMIL (4.7-6.1); RDW 14.8 % (11.5-14.5); WBC 12.94 X1000 (4.8-10.8)
[2019-01-12] MEDS: POTASSIUM CHLORIDE 10% LIQUID PO PRN ×3 (09:04→16:30)
--- NOTE | 2019-01-12 09:48 | PROGRESS NOTE ---
DATE: 01/12/2019 SUBJECTIVE: Mr. Castillo came in early this morning with abdominal pain, nausea and vomiting. He is followed by Dr. Cj Anaya. A 38-year-old male, well known to the service. Past medical history of uncontrolled diabetes mellitus type 2, hypertension, left foot osteomyelitis with previous amputation and multiple I Ds, hypertension, nicotine dependence, presented to the emergency room with a chief complaint of nausea, vomiting, abdominal pain for a day. He has recently been discharged on 11/26/2018. I suspect he has gastroparesis. Evaluated at that time by the GI department and was scheduled for follow up as an outpatient because of abdominal pain. CT of the abdomen was performed and it showed severe constipation. As per patient, his last bowel movement was probably Wednesday 4 days ago. Laboratory shows elevated white blood cell count, thrombocytosis, glucose level 457 and anion gap 32. Acetone level was small. The patient appears to be in DKA, was started on DKA protocol. He still feels pretty poor. We have supplemented his electrolytes, magnesium, potassium and he still has a good deal of nausea but he would like to try some liquids. OBJECTIVE: Vital signs: He remains afebrile, temperature 98.5 degrees, pulse 126, respirations 19, blood pressure 176/113. HEENT: Pupils are equal round. Lungs: Clear in all lung choi. Cardiovascular: Regular rhythm and rate without murmur or S3. Abdomen: Soft. Skin is warm and dry. LABORATORY DATA: Review [place] [address], [place] [address]. Hematocrit was 41, this morning is 32. Platelet count was 686,000, this morning 469,000. Electrolytes: Sodium 136, potassium 4.2, chloride 93, BUN 21, creatinine 0.9, blood sugar came from 257 down to 196. Blood gases on arrival, pH was 7.43, pCO2 33, PO2 is 86, O2 saturation 97%. Abdominal and pelvic CT showed constipation, otherwise unremarkable. ASSESSMENT AND PLAN: 1. Diabetic ketoacidosis, very mild. Continue diabetic ketoacidosis protocol. 2. Constipation. Continue bowel regimen and fluids. 3. Diabetes mellitus type 2. Sugars were high and doing better this morning. Put him on a sliding scale. Hopefully can advance him to p.o. intake. 4. Dehydration. 5. Anxiety. The patient is on his home medications. 6. Gastroparesis. 7. Leukocytosis which I suspect is demargination. I do not see any evidence of infection. REVIEW OF ORDERS: I do not see any change at this point. cc: Harry Betancourt MD
[2019-01-12 13:21] LABS: AGAP 12; BUN 17 mg/dL (8-22); CALCIUM 8.3 mg/dL (8.8-10.2); CHLORIDE 95 mmol/L (98-107); COSMO 272; CREATININE 0.8 mg/dL (0.7-1.2); ESTIMATED GFR > 60; GLUCOSE 246 mg/dL (70-104); MAGNESIUM 2.3 mg/dL (1.5-2.7); POTASSIUM 4.1 mmol/L (3.5-5.1); SODIUM 131 mmol/L (136-145); TCO2 24 mmol/L (25-35)
[2019-01-12 13:22] LABS: PHOSPHORUS 1.4 mg/dL (2.7-4.5)
[2019-01-12 15:38] LABS: AGAP 10; BUN 15 mg/dL (8-22); CALCIUM 8.1 mg/dL (8.8-10.2); CHLORIDE 98 mmol/L (98-107); COSMO 273; CREATININE 0.8 mg/dL (0.7-1.2); ESTIMATED GFR > 60; GLUCOSE 208 mg/dL (70-104); MAGNESIUM 2.3 mg/dL (1.5-2.7); PHOSPHORUS 1.3 mg/dL (2.7-4.5); POTASSIUM 4.2 mmol/L (3.5-5.1); SODIUM 133 mmol/L (136-145); TCO2 25 mmol/L (25-35)
[2019-01-12 20:21] LABS: AGAP 12; BUN 11 mg/dL (8-22); CALCIUM 8.2 mg/dL (8.8-10.2); CHLORIDE 97 mmol/L (98-107); COSMO 273; CREATININE 0.7 mg/dL (0.7-1.2); ESTIMATED GFR > 60; GLUCOSE 192 mg/dL (70-104); MAGNESIUM 2.1 mg/dL (1.5-2.7); PHOSPHORUS 1.4 mg/dL (2.7-4.5); POTASSIUM 3.8 mmol/L (3.5-5.1); SODIUM 134 mmol/L (136-145); TCO2 25 mmol/L (25-35)
[2019-01-12] MEDS ORDERED: AMBIEN PO SCH (21:00)
[2019-01-12] MEDS: ATIVAN PO SCH (21:29)
[2019-01-12 23:55] LABS: AGAP 10; BUN 10 mg/dL (8-22); CALCIUM 8.2 mg/dL (8.8-10.2); CHLORIDE 98 mmol/L (98-107); COSMO 278; CREATININE 0.7 mg/dL (0.7-1.2); ESTIMATED GFR > 60; GLUCOSE 225 mg/dL (70-104); MAGNESIUM 2.1 mg/dL (1.5-2.7); PHOSPHORUS 1.7 mg/dL (2.7-4.5); SODIUM 136 mmol/L (136-145); TCO2 28 mmol/L (25-35)
[2019-01-13] MEDS: REGLAN IV SCH ×2 (00:07→05:10)
[2019-01-13] MEDS: POTASSIUM CHLORIDE 10% LIQUID PO PRN ×2 (00:08→05:20)
[2019-01-13] MEDS: LOVENOX SUBQ SCH (00:08)
[2019-01-13] MEDS: 1/2 NS 1,000 ML IV SCH ×2 (00:11→08:10)
[2019-01-13 03:51] LABS: AGAP 8; BUN 7 mg/dL (8-22); CALCIUM 8.4 mg/dL (8.8-10.2); CHLORIDE 102 mmol/L (98-107); COSMO 276; CREATININE 0.6 mg/dL (0.7-1.2); ESTIMATED GFR > 60; GLUCOSE 180 mg/dL (70-104); POTASSIUM 3.9 mmol/L (3.5-5.1); SODIUM 137 mmol/L (136-145); TCO2 27 mmol/L (25-35)
[2019-01-13] MEDS ORDERED: VANCOMYCIN IV PER PHARMACY MISC SCH (04:30)
[2019-01-13] MEDS: ZOFRAN IV PRN ×2 (05:21→11:06)
[2019-01-13] MEDS: PROTONIX PO SCH ×2 (05:22→06:04)
[2019-01-13] MEDS: D5 1/2 NS 1,000 ML IV SCH (06:04)
[2019-01-13] MEDS: LACTULOSE PO SCH (08:09)
[2019-01-13] MEDS: ATIVAN PO SCH ×2 (08:09→12:28)
[2019-01-13] MEDS: DULCOLAX PR SCH (08:10)
--- NOTE | 2019-01-13 08:50 | PROGRESS NOTE ---
DATE: 01/13/2019 SUBJECTIVE: Mr. Castillo is feeling better. He would like some solid food. Potassium is hard to swallow. OBJECTIVE: Vital Signs: He remains afebrile, temperature 98.3 degrees, pulse 83, respirations 17, blood pressure 157/89. HEENT: Pupils are equal and round. Lungs: Clear in all lung choi. Cardiovascular: Regular rhythm and rate without murmur or S3. Abdomen: Soft. Skin: Warm and dry. Urine output is 1600 mL. Blood sugar 312, 200, 193. ASSESSMENT AND PLAN: 1. Diabetic ketoacidosis was very mild. He is feeling better. He had a little bit of dehydration I think, volume contraction when he came in. I will advance him to a regular diet. 2. Constipation. Continue bowel regimen. 3. Diabetes mellitus type 2. Sugars were high when he came in, 400s and 500s, and they seem to be coming down nicely. We will see how he does with his eating today and possibly could go home this afternoon. 4. Anxiety. 5. Questionable gastroparesis. REVIEW OF ORDERS: I do not see any change. We will put him on a diabetic diet. cc: Harry Betancourt MD
[2019-01-13 08:58] LABS: BASO# 0.05 X1000 (0.0-0.2); BASO% 0.7 % (0.0-0.8); EOS# 0.05 X1000 (0.0-0.7); EOS% 0.7 % (0.0-10.0); HEMATOCRIT 33.3 % (42.0-52.0); HEMOGLOBIN 10.9 g/dL (14.0-18.0); LYMPH# 1.99 X1000 (1.2-3.4); LYMPH% 27.8 % (20.5-51.1); MCH 25.9 PG (27-31); MCHC 32.7 g/dL (33-37); MCV 79.1 FL (81-99); MONO# 0.44 X1000 (0.11-0.59); MONO% 6.1 % (1.7-9.3); NEUT# 4.63 X1000 (1.4-6.5); NEUT% 64.7 % (42.2-75.2); PLT 452 X1000 (130-400); RBC 4.21 XMIL (4.7-6.1); RDW 14.8 % (11.5-14.5); WBC 7.16 X1000 (4.8-10.8)
[2019-01-13] MEDS ORDERED: ZYVOX PO SCH (09:00)
[2019-01-13 09:19] LABS: AGAP 12; BUN 6 mg/dL (8-22); CALCIUM 8.7 mg/dL (8.8-10.2); CHLORIDE 98 mmol/L (98-107); COSMO 268; CREATININE 0.6 mg/dL (0.7-1.2); ESTIMATED GFR > 60; GLUCOSE 142 mg/dL (70-104); MAGNESIUM 1.7 mg/dL (1.5-2.7); POTASSIUM 3.6 mmol/L (3.5-5.1); SODIUM 134 mmol/L (136-145); TCO2 24 mmol/L (25-35)
[2019-01-13] MEDS ORDERED: NS 1,000 ML IV SCH (09:45)
[2019-01-13] MEDS ORDERED: LANTUS INSULIN SUBQ SCH (09:45)
[2019-01-13] MEDS ORDERED: HUMULIN R SUBQ SCH (11:00)
[2019-01-13] MEDS: MORPHINE IV PRN (11:06)
[2019-01-13 12:06] VITALS: BP 169/87
--- NOTE | 2019-01-13 14:46 | DISCHARGE SUMMARY ---
ADMISSION DATE: 01/12/2019 DISCHARGE DATE: 01/13/2019 HISTORY OF PRESENT ILLNESS: Came with abdominal pain, nausea, and vomiting. A 38-year-old well known to our service. Past medical history of uncontrolled diabetes mellitus type 2, hypertension, left foot osteomyelitis with previous amputation, multiple incisions and drainages, hypertension, nicotine dependence, presented to the Emergency Department with chief complaint of nausea, vomiting, abdominal pain for 1 day. He was recently discharged on 11/26/2018 due to possible gastroparesis. Evaluated at that time by GI department. Scheduled follow-up. Because of his abdominal pain, CT of abdomen performed showed severe constipation present. The patient's bowel movement was probably last time was back on Wednesday, 4 days ago. Lab revealed white count was mildly elevated, thrombocytosis. Glucose level 457, anion gap 32. Acetone level small. HOSPITAL COURSE: Admitted him. Bono he was early DKA and constipation. Gave him some fluids. Blood sugars came down nicely. Bono better. Advanced his diet and felt like he could go home on 01/13/2019. Plan to let him go home on his home medications of Norvasc 5 mg b.i.d., Catapres 0.1 mg b.i.d. SoloSTAR which is insulin, glargine or Lantus 70 units take subcutaneously twice a day, Icar 1 b.i.d., lisinopril 30 mg a day, lorazepam I think he has as needed, Reglan 5 mg 4 times a day, Protonix 40 mg b.i.d., Carafate 1 g I think takes 4 times a day, Tizanidine 4 mg t.i.d., and I think he takes Ambien 10 mg at night as needed for sleep. cc: Harry Betancourt MD
== END 2019-01-13 15:06 | disposition home or self-care (01) | DRG 639 ==
LOC: ED 16:19 → EDIPHOLD 01-12 03:29 → SUATTDRO 01-12 03:29 → 3S 01-12 09:48
PROVIDERS: ATTEND Emergency Medicine
CPT/HCPCS: 74177; 80048; 80053; 81001; 82009; 82805; 82948; 83036; 83605; 83690; 83735; 84100; 84484; 85025; 87040; 93005; 96361; 96365; 96366; 96368; 96372; 96375; 96376; 99285; A9270; C9113; J1170; J1650; J1815; J2270; J2405; J2550; J2765; J3475; J7030; Q9967; S0164; XXXXX

== ENCOUNTER 2019-02-14 16:48 | Inpatient (IN) ==
[2019-02-14] MEDS ORDERED: PRILOSEC PO ONE (19:36)
--- NOTE | 2019-02-14 20:06 | HISTORY AND PHYSICAL ---
CHIEF COMPLAINT: Abdominal pain. HISTORY OF PRESENT ILLNESS: This is a 38-year-old gentleman with reported gastroparesis, who comes in and for intractable pain or severe pain in his abdomen and inability to keep anything down. He was initially admitted to [facility] for treatment. He was here about a month ago with similar issues, reportedly an NSTEMI. It says NSTEMI, but I do not think he had an acute heart attack. He was here for abdominal pain, nausea, vomiting and then he went to [facility]. There was concern there over hydrops of the gallbladder and he was admitted. Dr. Urena took care of him there. He had persistence of pain and nausea and vomiting, and she discussed the case with Dr. Gordon because there was concern over possible need for gallbladder removal, but at this point I am not entirely sure he truly has gallbladder disease. His ultrasound at the outlying facility was normal, so I am not really sure if he truly has significant gallbladder disease, but he was admitted for treatment. PAST MEDICAL HISTORY: 1. Type 1 diabetes. 2. Hypertension. 3. History of osteomyelitis. 4. Noncompliance. PAST SURGICAL HISTORY: 1. He has had amputations previously and wound VAC of his left foot. 2. Multiple metatarsal amputations. ALLERGIES: Sulfa and vancomycin. SOCIAL HISTORY: No alcohol. No smoking reportedly. MEDICATIONS: He takes Lantus, he says 70 units daily and then sliding scale. He is on numerous other medications. REVIEW OF SYSTEMS: Otherwise negative x12 point review of systems. PHYSICAL EXAMINATION: VITAL SIGNS: I do not have a blood pressure on him yet. GENERAL: Well developed male in no acute distress. HEAD: Normocephalic and atraumatic. EYES: Pupils equal, round, reactive to light. Extraocular movements were intact. Sclerae were anicteric. EARS, NOSE, THROAT: Oropharynx was moist and clear. NECK: Supple. CARDIOVASCULAR: Regular rate and rhythm. No murmurs, gallops, or rubs. PULMONARY: Bilateral breath sounds. Clear to auscultation. GI: Soft, nontender, and nondistended. Bowel sounds are positive. LABORATORY DATA: I do not have any data today, at our facility in any case. His liver enzymes were pretty normal. Ultrasound was normal. I think it did show some constipation. ASSESSMENT: This is a 38-year-old male, with history of diabetes, hypertension, noncompliance, who comes in with intractable nausea, vomiting, and abdominal pain with an unclear diagnosis. He had a workup similar in kind which was really unremarkable. 1. Gastrointestinal. We will get a GI opinion. I am going to pursue a HIDA scan because it is questionable if he has gallbladder disease, but his ultrasound was negative, so I think that is unlikely. His pain is in both his upper quadrants and is somewhat atypical, so I am not sure what we are dealing with here, but we will attempt to get that. I am going to start him on some proton pump inhibitors and we will continue to monitor closely. 2. Gastroparesis. I will initiate Reglan and follow. Hopefully, that will help with his discomfort. 3. Type 2 diabetes. We will give half his insulin and monitor his blood sugars and check an A1c. 4. Hypertension. We will adjust medications accordingly. DISPOSITION: Pending his clinical status. cc: Lang Arauz MD
[2019-02-14] MEDS: PHENERGAN IV PRN (21:37)
[2019-02-14] MEDS: SODIUM CHLORIDE 0.9% INJ PRN (21:37)
[2019-02-14] MEDS: SODIUM CHLORIDE 0.9% INJ SCH (21:37)
[2019-02-14] MEDS: PEPCID IV SCH (21:37)
[2019-02-14] MEDS: NS 1,000 ML IV SCH (21:38)
[2019-02-14] MEDS: DILAUDID IV PRN (21:38)
[2019-02-14] MEDS: HUMULIN R SUBQ SCH (22:39)
[2019-02-15] MEDS: PHENERGAN IV PRN ×3 (01:42→18:40)
[2019-02-15] MEDS: SODIUM CHLORIDE 0.9% INJ PRN ×2 (01:42→05:50)
[2019-02-15] MEDS: DILAUDID IV PRN ×4 (01:43→18:39)
[2019-02-15] MEDS: ZOFRAN IV PRN ×2 (04:06→14:49)
[2019-02-15] MEDS: NS 1,000 ML IV SCH ×4 (05:02→21:21)
[2019-02-15] MEDS: PRILOSEC PO SCH ×2 (05:51→12:05)
[2019-02-15] MEDS: HUMULIN R SUBQ SCH ×4 (07:37→21:13)
[2019-02-15] MEDS ORDERED: LANTUS INSULIN SUBQ SCH (09:00)
[2019-02-15 09:09] LABS: BASO# 0.05 X1000 (0.0-0.2); BASO% 0.6 % (0.0-0.8); EOS# 0.01 X1000 (0.0-0.7); EOS% 0.1 % (0.0-10.0); HEMATOCRIT 32.7 % (42.0-52.0); HEMOGLOBIN 10.6 g/dL (14.0-18.0); IMM GRAN# 0.05 X1000 (0.0-0.04); IMM GRAN% 0.6 % (0.0-0.5); LYMPH# 1.36 X1000 (1.2-3.4); LYMPH% 16.6 % (20.5-51.1); MCH 25.5 PG (27-31); MCHC 32.4 g/dL (33-37); MCV 78.6 FL (81-99); MONO# 0.66 X1000 (0.11-0.59); MONO% 8.1 % (1.7-9.3); MPV 10.2 FL (7.4-10.4); NEUT# 6.05 X1000 (1.4-6.5); PLT 340 X1000 (130-400); RBC 4.16 XMIL (4.7-6.1); RDW 15.1 % (11.5-14.5); WBC 8.18 X1000 (4.8-10.8)
[2019-02-15] MEDS: PEPCID IV SCH ×2 (09:13→21:21)
[2019-02-15 09:18] LABS: AMYLASE 30 U/L (20-200); LIPASE 20 U/L (13-60)
[2019-02-15 09:19] LABS: AGAP 17; ALB/GLOB RATIO 1.5; ALBUMIN 3.7 g/dL (3.5-5.0); ALKALINE PHOSPHATASE 97 U/L (32-122); BUN 8 mg/dL (8-22); CALCIUM 8.1 mg/dL (8.8-10.2); CHLORIDE 94 mmol/L (98-107); COSMO 268; CREATININE 0.7 mg/dL (0.7-1.2); ESTIMATED GFR > 60; GLUCOSE 194 mg/dL (70-104); GOT 17 U/L (10-34); GPT 11 U/L (10-44); POTASSIUM 3.6 mmol/L (3.5-5.1); SODIUM 132 mmol/L (136-145); TCO2 21 mmol/L (25-35); TOTAL BILIRUBIN 0.22 mg/dL (0.20-1.00); TOTAL PROTEIN 6.2 g/dL (6.3-8.3)
[2019-02-15 09:51] LABS: HEMOGLOBIN A1C 11.9 % (4.8-6.0)
--- NOTE | 2019-02-15 10:22 | GENERAL SURGERY CONSULTATION ---
DATE: 02/15/2019 REASON FOR CONSULTATION: Abdominal pain, possible gallbladder disease. HISTORY OF PRESENT ILLNESS: This is a 38-year-old male who has a history of gastroparesis and Gwendolyn esophagitis, who reported to the [facility] with a 2-day history of severe upper abdominal pain. He also has had multiple episodes of nausea and vomiting. No exacerbating or relieving factors. His last bowel movement was yesterday and normal. He has had a low-grade fever. He went to the [facility], and imaging there included an ultrasound and CT scan. By report, the ultrasound was normal. However, the CT scan showed a distended gallbladder and it was described as gallbladder hydrops and he was transferred here for further surgical evaluation. This case was discussed with Dr. Jessica Urena yesterday prior to his transfer. This morning, he continues to have severe abdominal pain in the epigastrium with nausea. He gets a little relief from morphine, but otherwise has persistent pain. He has never had an attack quite like this in the past. PAST MEDICAL HISTORY: Type 1 diabetes, hypertension, osteomyelitis, multiple skin infections, gastroparesis. PAST SURGICAL HISTORY: Toe amputations, multiple I D of abscesses. ALLERGIES: Sulfa and vancomycin. HOME MEDICATIONS: Clonidine, NovoLog, Icar C, Norvasc, lisinopril, Carafate, lorazepam, Reglan, Ambien, Lantus, Zanaflex, Protonix. FAMILY HISTORY: Reviewed and noncontributory. SOCIAL HISTORY: Negative for tobacco, alcohol, or illicit drug use. REVIEW OF SYSTEMS: Ten systems reviewed and negative except as noted above. PHYSICAL EXAMINATION: Vital Signs: Temperature 100.1 degrees, pulse 101, respirations 18, blood pressure 147/70, O2 saturation 97%. General: Well-developed, well-nourished male who appears to be ill. HEENT: Normocephalic, atraumatic. Extraocular muscles intact. Pupils equal, round, and reactive to light. Sclerae anicteric. Moist mucous membranes. Hearing grossly normal. No oral lesions. Neck: Supple. No thyromegaly. Lymph: No cervical, supraclavicular, or periumbilical lymph nodes appreciated. Cardiovascular: Tachycardic. Respiratory: Bilateral equal breath sounds. No increased work of breathing. Gastrointestinal: Soft, nondistended. Diffusely tender, but more so in the epigastric and right upper quadrant. No rebound or guarding. No organomegaly or mass. No hernias appreciated. Extremities: No clubbing, cyanosis, or edema. Skin: Warm and dry. No rash. Musculoskeletal: Moves all extremities equally and well. DIAGNOSTIC STUDIES: Yesterday at [facility], his white blood cell count was 19,000 and today, it is 8000. Today hemoglobin 10.6, hematocrit 32.7, platelet count 340,000. His chemistry panel is pending. Amylase yesterday 52. A metabolic profile was not done at [facility], and it is pending here. Urinalysis showed 2+ glucose 2+ protein, 2+ ketones, negative bilirubin, and negative nitrite. Urine drug screen negative. ASSESSMENT AND PLAN: A 38-year-old male with abdominal pain, nausea, and vomiting of unclear etiology, and imaging suggests possible acalculous acute cholecystitis. We will pursue a HIDA scan today to further evaluate this. I will keep him n.p.o. Further evaluations after his imaging is complete. cc: Aditya Vines MD
--- NOTE | 2019-02-15 10:46 | Diag Imaging Result Doc PS360 ---
EXAM: CHEST-2 VIEWS HISTORY: fever TECHNIQUE: Chest two views COMPARISON: 11/24/2018 FINDINGS: The lungs are well expanded. The heart is not enlarged. The vessels are not distended. There are no infiltrates. No pleural effusions. IMPRESSION: No pneumonia. Electronically signed by Juan Carlos Chairez 02/15/2019 10:44 AM
[2019-02-15] MEDS ORDERED: TORADOL IV ONE (12:14)
[2019-02-15] MEDS ORDERED: ATIVAN IV ONE (12:15)
--- NOTE | 2019-02-15 14:56 | Diag Imaging Result Doc PS360 ---
EXAM: HIDA SCAN W/ EJECTION FRACTION HISTORY: abdominal pain TECHNIQUE: Nuclear medicine HIDA scan with gallbladder ejection fraction COMPARISON: None. FINDINGS: 5.2 mCi Choletec administered. There is normal uptake within the liver. Normal filling of the gallbladder with normal emptying into the small bowel. Ensure was given to determine the gallbladder ejection fraction. No appreciable emptying at 60 minutes. IMPRESSION: Abnormal exam with no emptying of the gallbladder through 60 minutes. Electronically signed by Juan Carlos Chairez 02/15/2019 2:54 PM
--- NOTE | 2019-02-15 18:18 | PROGRESS NOTE ---
DATE: 02/15/2019 SUBJECTIVE: The patient has no major complaints. OBJECTIVE: Blood pressure 158/83,m heart rate 103, respiratory rate 18, temperature 98.8 degrees.Cardiovascular: Regular rate and rhythm. Pulmonary: Bilateral breath sounds clear to auscultation. Gastrointestinal: Soft. He had some mild tenderness in his right upper quadrant. LABORATORY DATA: White count 8, hemoglobin 10, hematocrit 32, platelets 340,000. Rest of his numbers are okay. Sugars are still high 200s to 300s. A1c is 11.9. He has not gotten any of his Lantus because he was n.p.o. ASSESSMENT AND PLAN: 1. I explained that he still needs half his dose of Lantus even if he is n.p.o. He usually takes 70 units b.i.d., and he has not gotten that now. In any case, I am going to give him 30 units and we will see how he does. We will continue to monitor his blood sugars. 2. His HIDA scan was positive. There was no emptying of gallbladder through 60 minutes so it was felt to be consistent with chronic acute cholecystitis. Dr. Vines has evaluated the patient. We are looking at acalculous cholecystitis, even though it is acting obstructed. I am going to put him on some Zosyn. We will see how he does because he had fever and he is diabetic, poorly controlled I do not want him to turn into an emphysematous cholecystitis. 3. Diabetes. We will continue regular control. Again I think if we can get him comfortable, he will still need some of that treatment if possible. 4. Discharge condition is stable. cc: Lang Arauz MD
[2019-02-15] MEDS: ZOSYN 3.375 GM in NS 50 ML IV SCH (18:44)
[2019-02-15 19:08] LABS: AGAP 21; ALB/GLOB RATIO 1.5; ALKALINE PHOSPHATASE 107 U/L (32-122); BUN 9 mg/dL (8-22); CALCIUM 8.9 mg/dL (8.8-10.2); CHLORIDE 95 mmol/L (98-107); COSMO 279; CREATININE 0.8 mg/dL (0.7-1.2); ESTIMATED GFR > 60; GLUCOSE 318 mg/dL (70-104); GOT 13 U/L (10-34); GPT 12 U/L (10-44); POTASSIUM 3.6 mmol/L (3.5-5.1); SODIUM 134 mmol/L (136-145); TCO2 18 mmol/L (25-35); TOTAL BILIRUBIN 0.23 mg/dL (0.20-1.00); TOTAL PROTEIN 6.7 g/dL (6.3-8.3)
[2019-02-15 20:01] LABS: URINE SOURCE CLEAN CATCH
[2019-02-15 20:06] LABS: BILIRUBIN URINE NEGATIVE (NEGATIVE); BLOOD URINE NEGATIVE (NEGATIVE); COLOR STRAW; GLUCOSE URINE >1000 mg/dL (NEGATIVE); KETONE URINE >150 mg/dL (NEGATIVE); LEUKOCYTES URINE NEGATIVE (NEGATIVE); NITRITE URINE NEGATIVE (NEGATIVE); PROTEIN URINE NEGATIVE (NEGATIVE); SP GRAVITY URINE 1.022; TURBIDITY URINE CLEAR (CLEAR); UROBILINOGEN URINE NORMAL (NORMAL)
[2019-02-15 20:07] LABS: UR EPITHELIAL CELLS <10 /HPF (<10); URINE BACTERIA NEGATIVE /HPF; URINE RBC <10 /HPF (<10); URINE WBC <10 /HPF (<10)
[2019-02-15 20:18] LABS: UR AMPHETAMINES QUAL NONE DETECTED (NONE DETECT); UR BARBITUATES QUAL NONE DETECTED (NONE DETECT); UR BENZODIAZEPIN QUAL NONE DETECTED (NONE DETECT); UR CANNABINOIDS QUAL NONE DETECTED (NONE DETECT); UR COCAINE QUAL NONE DETECTED (NONE DETECT); UR METHADONE QUAL NONE DETECTED (NONE DETECT); UR OPIATES QUAL NONE DETECTED (NONE DETECT); UR OXYCODONE QUAL NONE DETECTED (NONE DETECT); UR PCP QUAL NONE DETECTED (NONE DETECT)
[2019-02-15] MEDS: LANTUS INSULIN SUBQ SCH (21:20)
[2019-02-15] MEDS: SODIUM CHLORIDE 0.9% INJ SCH (21:22)
--- NOTE | 2019-02-15 22:17 | GENERAL SURGERY PROGRESS NOTE ---
DATE: 02/15/2019 SUBJECTIVE: The patient overall feels a little better. He did have his HIDA scan this morning, which shows 0% ejection fraction after 60 minutes. OBJECTIVE: He is afebrile. Vital signs are stable. Generally he is awake, alert and oriented x3. No acute distress. GI: Soft. Mild tenderness in the right upper quadrant. ASSESSMENT AND PLAN: A 38-year-old male with severe biliary dyskinesia which is symptomatic. I have offered him laparoscopic cholecystectomy with cholangiogram tomorrow. We discussed the risks, benefits and alternatives, including bleeding, infection, incisional hernia, injury to surrounding organs such as the intestines or bile duct, and other imponderables. He understands and agrees to proceed. cc: Aditya Vnies MD
[2019-02-16] MEDS: PHENERGAN IV PRN ×4 (02:25→20:59)
[2019-02-16] MEDS: SODIUM CHLORIDE 0.9% INJ PRN ×2 (02:26→21:00)
[2019-02-16] MEDS: DILAUDID IV PRN ×7 (02:27→23:01)
[2019-02-16] MEDS: ZOSYN 3.375 GM in NS 50 ML IV SCH ×4 (02:29→20:49)
[2019-02-16] MEDS: NS 1,000 ML IV SCH ×2 (05:06→18:06)
[2019-02-16] MEDS: ZOFRAN IV PRN ×4 (05:07→18:57)
[2019-02-16] MEDS: PRILOSEC PO SCH ×2 (06:02→21:00)
[2019-02-16] MEDS: HUMULIN R SUBQ SCH ×4 (06:45→21:47)
[2019-02-16 06:58] LABS: BASO# 0.06 X1000 (0.0-0.2); BASO% 0.8 % (0.0-0.8); EOS# 0.06 X1000 (0.0-0.7); EOS% 0.8 % (0.0-10.0); HEMATOCRIT 33.3 % (42.0-52.0); HEMOGLOBIN 11.1 g/dL (14.0-18.0); IMM GRAN# 0.04 X1000 (0.0-0.04); IMM GRAN% 0.6 % (0.0-0.5); LYMPH# 1.71 X1000 (1.2-3.4); LYMPH% 23.8 % (20.5-51.1); MCH 25.8 PG (27-31); MCHC 33.3 g/dL (33-37); MCV 77.4 FL (81-99); MONO# 0.61 X1000 (0.11-0.59); MONO% 8.5 % (1.7-9.3); MPV 9.6 FL (7.4-10.4); NEUT# 4.72 X1000 (1.4-6.5); NEUT% 65.5 % (42.2-75.2); PLT 420 X1000 (130-400); RDW 15.1 % (11.5-14.5)
--- NOTE | 2019-02-16 07:07 | GENERAL SURGERY PROGRESS NOTE ---
DATE: 02/16/2019 SUBJECTIVE: The patient feels okay this morning. No severe pain, no vomiting. He did tolerate some liquids last night. He still has some pain in his right upper quadrant. OBJECTIVE: Vital signs: He is afebrile. Vital signs are stable. General: He is awake, alert, oriented x3. No acute distress. Gastrointestinal: Soft, tender in the right upper abdomen. No rebound or guarding. Respiratory: No work of breathing. LABORATORY DATA: Pending. ASSESSMENT AND PLAN: A 38-year-old male with severe biliary dyskinesia, abdominal pain, nausea. This is consistent with acalculous cholecystitis. We are planning a laparoscopic cholecystectomy today. All questions were answered. cc: Aditya Vines MD
--- NOTE | 2019-02-16 07:35 | GASTROENTEROLOGY CONSULTATION ---
DATE: 02/16/2019 REASON FOR CONSULTATION: Nausea, vomiting, epigastric pain. HISTORY OF PRESENT ILLNESS: Mr. Miguel A Castillo is a 38-year-old gentleman with past medical history of poorly controlled insulin dependent diabetes type 2, GERD with esophagitis and gastroparesis, history of osteomyelitis, acute on chronic anemia secondary to esophagitis who presents with 3 days of intractable nausea and vomiting and epigastric pain. The patient reports having blood sugars ranging between 120 to 300 at home. He recently underwent an EGD and colonoscopy last Wednesday with Dr. Horne. He says that he was initially admitted to [facility] for treatment. He had an ultrasound there of the abdomen that was normal. HIDA scan here showed normal uptake in the liver, normal cellular gallbladder with normal emptying into his small bowel. However it was an abnormal exam because there was no emptying of the gallbladder through 60 minutes. PAST MEDICAL HISTORY: As per HPI. Also tobacco dependency, he dips. History of medication noncompliance. Hypertension. PAST SURGICAL HISTORY: 1. I and D of the left foot, second metatarsal head amputation and prior osteomyelitis requiring a wound VAC in August 2018. 2. Multiple metatarsal amputations of the left foot. ALLERGIES: Sulfa and vancomycin. SOCIAL HISTORY: Prior smoker, he dips tobacco. Prior alcohol use. No drug use. HOME MEDICATIONS: Reviewed in the chart. FAMILY HISTORY: No family history of GI malignancies. REVIEW OF SYSTEMS: As per HPI, otherwise 12 point review of systems is negative. PHYSICAL EXAMINATION: VITAL SIGNS: Temperature is 98.3 degrees, heart rate 95, respiratory rate 15, blood pressure 172/89, O2 saturation 100% on room air. GENERAL: The patient is awake, alert and oriented, in no acute distress. HEENT: Sclerae anicteric. Moist mucous membranes. NECK: Supple. No JVD or lymphadenopathy. CARDIAC: Regular rate and rhythm. No murmurs, rubs or gallops. LUNGS: Clear to auscultation bilaterally. ABDOMEN: Soft, mildly distended, mild right upper quadrant epigastric pain on palpation. Negative Nance's. No ascites. Bowel sounds are present. EXTREMITIES: No cyanosis, clubbing or edema. NEUROLOGICAL: Nonfocal. LABORATORY DATA: White count 8.1, hemoglobin 10.6, platelets 340,000. Sodium 134, potassium 3.6, bicarb 218, chloride 95, BUN 9, creatinine 0.8, glucose of 318. LFTs are within normal limits. Lipase is 20. UA shows glucose and ketones. The tox is negative. IMAGING: Patient had a CT of the abdomen and pelvis on 01/11 that showed otherwise negative. HIDA scan was an abnormal exam with no emptying of the gallbladder at 60 minutes. ASSESSMENT AND PLAN: Mr. Miguel A Castillo is a 38-year-old gentleman with past medical history of poorly controlled diabetes complicated by gastroparesis, history of GERD with esophagitis who presents with intractable nausea and vomiting and epigastric pain. Found to have an abnormal HIDA scan. He will be seen by Surgery who plans on laparoscopic cholecystectomy tomorrow as he did not have any signs of acute cholecystitis at the time. He is on a PPI. Patient had a normal EGD and colonoscopy last week. No NSAIDs. Also notable for anemia with a hemoglobin of 10.6, platelets 340,000. Sodium mildly low at 134. Hyperglycemia. Epigastric pain concerning for possibly biliary dyskinesia. Patient will have surgery tomorrow, NPO after midnight. For his GERD with esophagitis, we will continue on PPI. For poorly controlled diabetes, recommend glycemic control. For history of gastroparesis, again glycemic control, antiemetics as needed. Small low fat frequent meals. Thank you for this consult. We will follow with you. Please call if any questions or concerns.
[2019-02-16] MEDS: SODIUM CHLORIDE 0.9% INJ SCH ×2 (08:10→20:47)
[2019-02-16] MEDS: PEPCID IV SCH ×2 (08:10→20:47)
[2019-02-16] MEDS: LANTUS INSULIN SUBQ SCH ×2 (09:49→21:54)
--- NOTE | 2019-02-16 12:33 | PROGRESS NOTE ---
DATE: 02/16/2019 INTERVAL HISTORY: Patient did have a vomiting episode yesterday. Over the last 8 hours, he has had 2 such vomiting episodes. He states he is ready to go for laparoscopic cholecystectomy. I discussed with him about exam findings, HIDA scan findings. He tells me that he was never formally diagnosed with gastroparesis. However, his nausea and vomiting problems started 2018 onwards. Recent EGD, colonoscopy has severe esophagitis. VITAL SIGNS: He has been afebrile with temperature of 98.8 degrees, pulse 87, respiratory rate 16, blood pressure 163/90, saturating 99% on room air.General: On physical examination, he does not appear in any acute distress. Oral cavity is moist. Lungs: Air entry bilaterally equal. No wheeze, rhonchi, crackles. Heart: S1, S2 normal. No murmur, rub, or gallop. Abdomen: Soft. Generalized tenderness, especially epigastric and right upper quadrant. No bowel sounds. Extremities: No lower extremity edema. He does have transmetatarsal amputation of the lateral 4 toes on the left foot. LABS: Suggestive of microcytic anemia. No BMP today. His blood sugars have been in acceptable range. ASSESSMENT AND PLAN: As mentioned on following progress notes. cc: Quique Aguila MD [facility]
--- NOTE | 2019-02-16 12:42 | GASTROENTEROLOGY PROGRESS NOTE ---
DATE: 02/16/2019 SUBJECTIVE: Resting in bed. He is currently n.p.o. He is scheduled for cholecystectomy today with Dr. Woods. OBJECTIVE: Vital Signs: Temperature 99.9 degrees, pulse of 80, respiratory rate 16, blood pressure 130/74, satting 98% on room air. Body weight of 226 pounds 2 ounces. BMI of 30.7 kg/m2. General Appearance: Moderately well-nourished. Lying in bed in no acute distress. HEENT: Pale conjunctivae. No icterus. Neck: Supple. Abdomen: Soft, mild discomfort. No rebound or guarding. Extremities: No cyanosis, clubbing. Neurologic: Neuro newman, he was alert, awake and oriented. LABS: His hemoglobin and hematocrit is 11.9 and 33.3, white count of 7.2, platelet count of 420. His blood glucose of 194. Blood culture x2 were drawn yesterday; they are currently pending. IMPRESSION AND PLAN: 1. Poorly-controlled insulin-dependent diabetes mellitus type 2. 2. Gastroesophageal reflux disease with esophagitis. 3. Gastroparesis. 4. History of osteomyelitis. 5. Acute on chronic anemia. 6. Intractable nausea, vomiting. 7. Abnormal HIDA scan with no filling of gallbladder after 60 minutes. 8. Multiple metatarsal amputation, left foot. RECOMMENDATIONS: He is scheduled for cholecystectomy today with Dr. Vines. He will continue on gastrointestinal prophylaxis with PPIs. He will continue bowel regimen on MiraLAX. He will continue on gastroparesis diet after the surgery. We will sign off at this time. Patient will follow up in the clinic as needed. The patient was also encouraged to keep a good control of diabetes. The patient will return to clinic as needed. The above plans discussed with the patient and all questions were answered. Please call us with any further questions. cc: MD Aditya Bellamy MD Robert Hall, MD
[2019-02-16] MEDS ORDERED: KEFZOL 1 GM/D5W 1 GM/50 ML IVPB IV ONE (14:00)
--- NOTE | 2019-02-16 14:38 | PROGRESS NOTE ---
DATE: 02/16/2019 ADDENDUM: ASSESSMENT AND PLAN: 1. Intractable nausea, vomiting, epigastric and right upper quadrant abdominal pain in the setting of suspected acalculous cholecystitis, severe esophagitis, history of erosive gastritis, suspected gastroparesis based on retained food on esophagogastroduodenoscopy a few weeks ago. Continue intravenous fluids and intravenous antibiotics. Continue proton pump inhibitors twice daily and sucralfate every 6 hours. The patient is to undergo a laparoscopic cholecystectomy today. I will appreciate postsurgery recommendations as well as stopping antibiotics according to surgery recommendations. 2. Suspected gastroparesis. The patient was discharged on oral Reglan which I would resume. I will continue intravenous hydromorphone as needed for abdominal pain. 3. History of insulin-dependent diabetes mellitus with poor control, with hemoglobin A1c of 11.9. Patient was counseled about taking his insulin regularly. The patient states he is in the process of establishing care with an dental equipment mechanic. Importance of insulin and diabetes control was emphasized. I will continue half his normal dose of insulin glargine and subcutaneous insulin. 4. Disposition. I will continue to monitor patient inside the hospital as we await his recovery postoperatively after today's surgery. Plan of care discussed with him. All of his questions have been answered. cc: Quique Aguila MD
[2019-02-16] MEDS ORDERED: SODIUM CHLORIDE 0.9% ONE (15:19)
[2019-02-16] MEDS ORDERED: LR 1,000 ML ONE (15:19)
[2019-02-16] MEDS ORDERED: SENSORCAINE-MPF 0.5%/EPI 1:200,000 ONE (15:19)
[2019-02-16] MEDS ORDERED: DIPRIVAN 1% ONE (15:35)
[2019-02-16] MEDS ORDERED: QUELICIN (DOSE) ONE (15:52)
[2019-02-16] MEDS ORDERED: XYLOCAINE-MPF 2% ONE (15:52)
[2019-02-16] MEDS ORDERED: ZEMURON ONE (15:52)
[2019-02-16] MEDS ORDERED: ZOFRAN ONE (15:52)
[2019-02-16] MEDS ORDERED: ROBINUL ONE (16:25)
[2019-02-16] MEDS ORDERED: NEOSTIGMINE ONE (16:26)
--- NOTE | 2019-02-16 16:30 | Diag Imaging Result Doc PS360 ---
EXAM: OPERATIVE CHOLANGIOGRAM 02/16/2019 HISTORY: GALLBLADDER DX TECHNIQUE: Two views COMMENT: There are no filling defects and there is contrast in the duodenum. IMPRESSION: No evidence retained stones. Electronically signed by Alexx Chapman 02/16/2019 4:28 PM
[2019-02-16] MEDS ORDERED: FENTANYL ONE (16:38)
[2019-02-16] MEDS: DILAUDID ONE ×6 (16:50→17:25)
--- NOTE | 2019-02-16 17:02 | OPERATIVE NOTE ---
PROCEDURE DATE: 02/16/2019 PREOPERATIVE DIAGNOSIS: Severe biliary dyskinesia. POSTOPERATIVE DIAGNOSIS: Severe biliary dyskinesia. PROCEDURE: Laparoscopic cholecystectomy with operative cholangiogram. SURGEON: Aditya Vines MD ANESTHESIA: General. ESTIMATED BLOOD LOSS: 20 mL. COMPLICATIONS: None apparent. SPECIMENS: Gallbladder. FINDINGS: The gallbladder was inflamed and distended. The cholangiogram revealed normal proximal hepatic radicles as well as distal common bile duct. There was flow of contrast into the duodenum without filling defects or stenoses. TECHNIQUE: The patient was brought to the operating room and placed supine on the table. General anesthesia was induced. He was prepped and draped in usual sterile fashion. Marcaine 0.5% with epinephrine was used to anesthetize our incisions. An 11 mm incision was made above the umbilicus. The fascia was exposed and incised sharply. Entry into the peritoneal cavity was obtained under direct vision with the Optiview device. Pneumoperitoneum was established. The camera was inserted. There was no evidence of injury to underlying structures. He was placed in reverse Trendelenburg and left rotation. Three 5 mm incision ports were placed across the epigastrium and right upper quadrant under direct vision per usual routine. The dome of the gallbladder was grasped by the veterinary assistant with an Allis clamp and lifted up superiorly. Fatty omental adhesions were taken down from the surface of the liver and gallbladder with hook cautery and blunt dissection. The triangle of Calot was then dissected out with the Maryland forceps, the suction spudder tip, and a hook cautery until the critical view was obtained. The gallbladder/liver junction was seen. There were only 2 structures entering the gallbladder, the cystic duct and cystic artery. The artery was clipped proximally and distally and incised in between. A clip was placed on the distal cystic duct. A ductotomy was made proximal to this with scissors. A 14-gauge Angiocath was passed through the right upper quadrant. The Taut cholangiogram catheter was passed through this into the cystic duct and held in place with a clip. The cholangiogram was performed with findings as noted above. The clip, catheter, and Angiocath were removed. Three clips were placed on the proximal cystic duct. It was divided distal to these with scissors. The gallbladder was removed from the liver bed using hook cautery. Two small posterior arterial branches entering the gallbladder were clipped proximally and divided distally with hook cautery. As the gallbladder was removed from the liver bed, I obtained hemostasis along the way. There were no signs of any significant bleeding or bile leakage at the conclusion. I irrigated with saline and suctioned out the old blood. The gallbladder was placed in an Endo Catch bag and it was brought out through the umbilical port site under direct vision. The umbilical fascia was closed with 0 Vicryl under direct vision with a Carlos-Tiffany device. The abdomen was desufflated. The ports were removed. The skin was closed with 4-0 subcuticular Monocryl and Steri-Strips. There were no apparent complications. He was awakened in stable condition and transferred to the recovery room. cc: Aditya Vines MD
[2019-02-16] MEDS: PHENERGAN ONE ×2 (17:06→17:17)
[2019-02-16] MEDS: MIRALAX PO SCH (20:59)
[2019-02-16] MEDS: NORCO-7.5 PO PRN (21:11)
[2019-02-17] MEDS: DILAUDID IV PRN ×6 (02:16→22:06)
[2019-02-17] MEDS: ZOFRAN IV PRN ×2 (02:16→16:42)
[2019-02-17] MEDS: NORCO-7.5 PO PRN ×2 (03:07→16:42)
[2019-02-17] MEDS: ZOSYN 3.375 GM in NS 50 ML IV SCH ×4 (03:09→21:19)
[2019-02-17] MEDS: SODIUM CHLORIDE 0.9% INJ PRN ×4 (06:03→18:19)
[2019-02-17] MEDS: CARAFATE LIQUID PO SCH ×4 (06:03→20:55)
[2019-02-17] MEDS: PRILOSEC PO SCH (06:03)
[2019-02-17] MEDS: REGLAN PO SCH ×5 (06:17→21:21)
[2019-02-17] MEDS: HUMULIN R SUBQ SCH ×4 (06:56→21:55)
[2019-02-17 07:17] LABS: AGAP 13; BUN 6 mg/dL (8-22); CALCIUM 8.3 mg/dL (8.8-10.2); CHLORIDE 101 mmol/L (98-107); COSMO 272; CREATININE 0.6 mg/dL (0.7-1.2); ESTIMATED GFR > 60; GLUCOSE 103 mg/dL (70-104); SODIUM 137 mmol/L (136-145); TCO2 23 mmol/L (25-35)
[2019-02-17] MEDS: SODIUM CHLORIDE 0.9% INJ SCH (09:10)
[2019-02-17] MEDS: PEPCID IV SCH (09:10)
[2019-02-17] MEDS: MIRALAX PO SCH ×2 (09:13→21:22)
[2019-02-17] MEDS: PHENERGAN IV PRN ×4 (10:15→22:06)
[2019-02-17] MEDS: NS 1,000 ML IV SCH (10:19)
[2019-02-17] MEDS: LANTUS INSULIN SUBQ SCH ×2 (11:39→22:05)
--- NOTE | 2019-02-17 14:54 | GENERAL SURGERY PROGRESS NOTE ---
DATE: 02/17/2019 SUBJECTIVE: The patient still feels pretty rough this morning with nausea, abdominal pain. OBJECTIVE: Vital Signs: He is afebrile. Vital signs are stable. General: He is awake and alert, oriented x3. Somewhat ill-appearing, but nontoxic. CV: Regular rate and rhythm. Respiratory: Bilateral equal breath sounds. No work of breathing. GI: Soft, appropriately tender. Incisions clean and dry. Some mild redness around the periumbilical incision. He is appropriately tender. LABORATORY: Electrolytes reviewed today and unremarkable, except for some hypokalemia. ASSESSMENT AND PLAN: A 38-year-old male postoperative day 1 laparoscopic cholecystectomy. He is still symptomatic with nausea and abdominal pain. I think he would benefit from another night in the hospital with intravenous fluid rehydration, and let his diet advance today, and hopefully he will be ready to go home tomorrow. cc: Aditya Vines MD
[2019-02-17] MEDS: ATIVAN PO SCH ×2 (15:04→21:20)
[2019-02-17] MEDS: CATAPRES PO SCH ×2 (15:04→21:22)
[2019-02-17] MEDS: KLOR-CON PO SCH ×2 (15:04→17:34)
[2019-02-17] MEDS: NORVASC PO SCH (15:06)
[2019-02-17] MEDS ORDERED: LR 1,000 ML IV SCH (16:00)
--- NOTE | 2019-02-17 16:17 | EKG Report ---
Test Performed on : 02/17/2019 4:10:15 PM Test Reason : Tachycardia, Follow up ST T changes Blood Pressure : / mmHG Vent. Rate : 100 BPM Atrial Rate : 100 BPM P-R Int : 138 ms QRS Dur : 094 ms QT Int : 342 ms P-R-T Axes : 027 -02 001 degrees QTc Int : 441 ms Normal sinus rhythm. Inferior infarct (cited on or before 11-JAN-2019) Abnormal ECG When compared with ECG of 11-JAN-2019 17:41, (Unconfirmed) No significant change was found Confirmed by Asia ESTRADA, Harry Grant ([id number]) on 02/20/2019 9:29:53 AM
--- NOTE | 2019-02-17 18:44 | PROGRESS NOTE ---
DATE: 02/17/2019 INTERVAL HISTORY: He was tachycardic with heart rate of 110 per minute. He was hypertensive with systolic blood pressure in 170s. His antihypertensive medications have been resumed. EKG has been ordered. His potassium is being repleted for hypokalemia. After my discussion with surgery, I was informed that his gallbladder during laparoscopy did look abnormal. SUBJECTIVE: Patient says he still is intermittently nauseous and he had 1 episode of clear vomiting in the morning time. After that he was able to keep everything down. He has been passing gas as well. He has been started on liquid diet.Vital Signs: Temperature 99.5 degrees, pulse 103, respiratory rate 20, blood pressure 170/90, saturating 96% on room air. PHYSICAL EXAMINATION: General: Not in any acute distress. Oral cavity has some bilious material. Respiratory: Air entry bilaterally equal. No wheeze, rhonchi, crackles. Cardiovascular: S1, S2 normal. No murmur, rub, or gallop. Abdomen: Soft. There are scars of laparoscopy and he has mild generalized tenderness. Hypoactive bowel sounds. No lower extremity edema. He has not had a bowel movement. LABORATORY DATA: No CBC today. BMP suggestive of potassium of 3, normal kidney function. Blood sugars in acceptable range. Microbiology: Blood culture did not have any growth to date. IMAGING: No new imaging and EKG has been ordered. ASSESSMENT AND PLAN: 1. Intractable nausea and vomiting with epigastric right upper quadrant abdominal pain in the setting of suspected acalculous cholecystitis, severe esophagitis, erosive gastritis, and suspected gastroparesis based on retained food on EGD a few weeks ago, status post laparoscopic cholecystectomy on 02/16/2019. Continue intravenous fluids, intravenous antibiotics, proton pump inhibitors b.i.d. and sucralfate every 6 hours. Continue liquid diet as per surgery recommendation. 2. Suspected gastroparesis. Resume his Reglan. Continue intravenous hydromorphone and p.o. Entriken as needed for abdominal pain. 3. Tachycardia. This could be postoperative tachycardia in the setting of abdominal pain. I will get follow-up with EKG to rule out any ST changes. 4. Essential hypertension. Resume his home amlodipine and clonidine. Add lisinopril as tolerated. 5. History of insulin-dependent diabetes mellitus. Continue lower dose of his home Lantus and sliding scale insulin. 6. Continue intravenous Zofran and promethazine as needed for nausea and vomiting. 7. Disposition: The patient appears to be doing reasonably okay after surgery. However, he continues to have nausea. My plan is to monitor him for another 24 hours. If his nausea is better, he is tolerating diet well, then my plan would be to discharge him home with outpatient gastroenterology followup. Plan of care discussed with the patient. All of his questions have been answered. cc: Quique Aguila MD
[2019-02-17] MEDS: PROTONIX PO SCH (21:55)
[2019-02-18] MEDS: DILAUDID IV PRN ×4 (02:19→14:21)
[2019-02-18] MEDS: PHENERGAN IV PRN ×4 (02:19→14:22)
[2019-02-18] MEDS: CARAFATE LIQUID PO SCH ×2 (02:48→09:02)
[2019-02-18] MEDS: ZOSYN 3.375 GM in NS 50 ML IV SCH ×3 (02:48→17:01)
[2019-02-18 06:47] LABS: BASO# 0.04 X1000 (0.0-0.2); BASO% 0.5 % (0.0-0.8); EOS% 1.3 % (0.0-10.0); HEMATOCRIT 35.5 % (42.0-52.0); LYMPH# 1.97 X1000 (1.2-3.4); LYMPH% 25.8 % (20.5-51.1); MCH 25.9 PG (27-31); MCHC 33.8 g/dL (33-37); MCV 76.7 FL (81-99); MONO# 0.99 X1000 (0.11-0.59); MONO% 12.9 % (1.7-9.3); MPV 9.7 FL (7.4-10.4); NEUT# 4.55 X1000 (1.4-6.5); NEUT% 59.5 % (42.2-75.2); PLT 459 X1000 (130-400); RBC 4.63 XMIL (4.7-6.1); RDW 15.7 % (11.5-14.5); WBC 7.65 X1000 (4.8-10.8)
[2019-02-18 07:17] LABS: AGAP 14; BUN 3 mg/dL (8-22); CHLORIDE 96 mmol/L (98-107); COSMO 266; CREATININE 0.7 mg/dL (0.7-1.2); ESTIMATED GFR > 60; GLUCOSE 81 mg/dL (70-104); MAGNESIUM 1.4 mg/dL (1.5-2.7); PHOSPHORUS 2.2 mg/dL (2.7-4.5); POTASSIUM 3.2 mmol/L (3.5-5.1); SODIUM 135 mmol/L (136-145); TCO2 25 mmol/L (25-35)
[2019-02-18] MEDS: MIRALAX PO SCH (09:01)
[2019-02-18] MEDS: ATIVAN PO SCH ×2 (09:02→14:22)
[2019-02-18] MEDS: REGLAN PO SCH ×2 (09:02→14:22)
[2019-02-18] MEDS: PROTONIX PO SCH (09:02)
[2019-02-18] MEDS: NORVASC PO SCH (09:02)
[2019-02-18] MEDS: LANTUS INSULIN SUBQ SCH (09:02)
[2019-02-18] MEDS: CATAPRES PO SCH (09:02)
[2019-02-18] MEDS: HUMULIN R SUBQ SCH ×3 (09:04→17:02)
[2019-02-18] MEDS: SODIUM CHLORIDE 0.9% INJ PRN ×2 (10:22→14:22)
[2019-02-18] MEDS ORDERED: POTASSIUM CHLORIDE 20 MEQ/SWI 20 MEQ/100 ML IVPB IV SCH (12:00)
[2019-02-18 12:29] VITALS: BP 128/71
[2019-02-18] MEDS ORDERED: NS 500 ML ONE (12:58)
[2019-02-18] MEDS ORDERED: KLOR-CON PO SCH (13:15)
[2019-02-18] MEDS ORDERED: MAGNESIUM SULFATE 2 GM/S.W.I. 2 GM/50 ML IVPB IV SCH (14:15)
--- NOTE | 2019-02-18 20:57 | DISCHARGE SUMMARY ---
ADMISSION DATE: 02/14/2019 DISCHARGE DATE: 02/18/2019 DISCHARGE DISPOSITION: Home. DISCHARGE CONDITION: Patient is hemodynamically stable, alert, oriented x3. Denies any vomiting. Occasional nausea. He has been passing gas and he had a small bowel movement. He is tolerating liquid diet without any disturbance. DISCHARGE DIAGNOSIS: 1. Acute acalculous cholecystitis. 2. Intractable nausea and vomiting. 3. Gastroparesis based on endoscopy findings. 4. Hypokalemia. 5. Hypomagnesemia. 6. Severe esophagitis. OTHER DIAGNOSES: 1. History of insulin-dependent diabetes mellitus with noncompliance with medications with hemoglobin A1c more than 11. 2. Recurrent nausea and vomiting thought to be secondary to gastroparesis and cholecystitis now. 3. Type 2 diabetes mellitus. 4. Essential hypertension. 5. Left foot transmetatarsal amputation. DISCHARGE VITALS: At the time of discharge temperature 98.7 degrees, pulse 91, respiratory 20, blood pressure 128/71, saturating 97% room air. PHYSICAL EXAMINATION: General: Does not appear in any acute distress. Oral cavity is moist. Air entry bilaterally equal. No wheeze, rhonchi, or crackles. S1, S2 normal. No murmur or gallop. Abdomen: Soft. Mild tenderness at the site of laparoscopy. Active bowel sounds. No lower extremity edema. He has left foot transmetatarsal amputation of lateral 4 digits. He is alert and oriented x3. DISCHARGE MEDICATIONS: Tizanidine 4 mg every 8 hours, clonidine 0.1 mg b.i.d., lorazepam 1 mg t.i.d., insulin as per sliding scale 3 times a day, zolpidem 10 mg at nighttime as needed for insomnia, sucralfate 1 g p.o. 4 times a day, iron carbonyl ascorbic acid 1 tablet p.o. b.i.d., insulin glargine 30 units subcu b.i.d., he was advised to increase the dose according to his blood sugar response since previously he was taking 70 units b.i.d., magnesium oxide 400 mg b.i.d. 10 tablets have been prescribed, MiraLAX 17 g p.o. b.i.d. 15 powder has been prescribed, Lashmeet 7.5 one tablet q.6 hours as needed for abdominal pain 20 tablets have been prescribed, amlodipine 5 mg b.i.d., pantoprazole 40 mg b.i.d., metoclopramide 5 mg 4 times a day 120 tablets have been prescribed. LABS: At the time of discharge hemoglobin 12, platelet count 459,000, sodium 135, potassium 3.2 and he has received 40 mEq of potassium 2 doses, chloride 96, BUN 3, creatinine 0.7, his magnesium is 1.4. Microbiology during hospital admission, blood culture did not have any growth. IMAGING: During hospital admission HIDA scan had suggested abnormal exam with no emptying of the gallbladder through 60 minutes. Chest x-ray on admission had no pneumonia. HOSPITAL COURSE SUMMARY: Mr. Castillo is 38 years old man with history of insulin-dependent diabetes mellitus and gastroparesis with noncompliance with his insulin regimen and multiple previous admissions who had initially been admitted to [facility] for management of intractable nausea and vomiting which did not get better so he was transferred to [facility] for possible need of cholecystectomy as the ultrasound of gallbladder at outside hospital had detected possible hydrops of gallbladder. Patient in the [facility] underwent HIDA scan in which he was found to have acalculous cholecystitis. He was managed with intravenous fluids, intravenous antibiotics and surgery team was consulted. He was diagnosed with acalculous cholecystitis and he underwent surgery for laparoscopic cholecystectomy 02/16/2019 which he tolerated well. Postoperatively he was tolerating liquid diet well and he had a bowel movement and he was passing gas on regular basis so he was deemed appropriate for discharge. The patient was also seen by Gastroenterology for nausea, vomiting and epigastric pain. The patient had normal EGD and colonoscopy last week ago so Gastroenterology did not have any further recommendation. In October 2018 he was detected to have severe esophagitis grade 4 and so at the time of discharge he was provided prescription of pantoprazole and sucralfate with metoclopramide. At the time of discharge patient was alert, oriented x3. All of his questions been answered. More than 30 minutes spent in discharging this patient. The patient was advised to follow up with bakery team member as well as surgeon doctor. cc: Quique Aguila MD
[2019-03-03] MEDS ORDERED: PROTONIX PO SCH (09:00)
== END 2019-02-18 17:09 | disposition home or self-care (01) | DRG 419 ==
LOC: DIRADM → OBSVTOIN 16:48 → SUATTDRO 16:48 → 4N 18:48
PROVIDERS: ATTEND Internal Medicine
CPT/HCPCS: 71020; 71046; 74300; 78227; 80048; 80053; 80101; 80301; 80307; 80324; 80345; 80346; 80353; 80358; 80361; 80365; 81001; 82150; 82948; 83036; 83690; 83735; 83992; 84100; 85025; 87040; 88304; 93005; 93010; 94799; A9270; A9537; C1751; G0431; G0434; G0479; G0480; J0330; J0690; J1170; J1815; J1885; J2060; J2405; J2543; J2550; J3010; J3480; J7030; J7040; J7120; Q9966; Q9967; S0028; XXXXX

== ENCOUNTER 2019-04-23 06:32 | Inpatient (IN) ==
[2019-04-23] MEDS ORDERED: NS 1,000 ML IV ONE ×3 (06:50→08:50)
[2019-04-23] MEDS ORDERED: ZOFRAN IV ONE (06:51)
[2019-04-23] MEDS ORDERED: MORPHINE IV ONE (06:51)
[2019-04-23] MEDS ORDERED: HUMULIN R IV ONE (06:52)
[2019-04-23] MEDS ORDERED: BENADRYL IV ONE (07:03)
[2019-04-23] MEDS ORDERED: HUMULIN R (PARKWAY) ONE (07:05)
[2019-04-23 07:08] LABS: BE -0.6 mmoll (-3.0-3.0); BLOOD TYPE ARTERIAL; HCO3-(ACT) 24.4 mmoll (20.0-26.0); METHB 1.4 % (0.0-1.5); O2(CT) 18.3 mL/dL (15.0-23.0); O2HB 95.6 % (95.0-99.0); PO2(98.6) 101 mmHg (60-100); SAMPLE BLOOD; SAO2 99.5 % (95.0-100.0); THB 13.5 g/dL (11.5-17.4)
[2019-04-23] MEDS ORDERED: ZOFRAN ODT ONE (07:11)
[2019-04-23 07:14] LABS: BASO# 0.03 X1000 (0.0-0.2); BASO% 0.1 % (0.0-0.8); HEMATOCRIT 40.1 % (42.0-52.0); HEMOGLOBIN 13.8 g/dL (14.0-18.0); IMM GRAN% 0.4 % (0.0-0.5); LYMPH# 0.82 X1000 (1.2-3.4); LYMPH% 3.5 % (20.5-51.1); MCH 25.3 PG (27-31); MCHC 34.4 g/dL (33-37); MCV 73.6 FL (81-99); MPV 9.6 FL (7.4-10.4); NEUT# 21.16 X1000 (1.4-6.5); PLT 875 X1000 (130-400); RBC 5.45 XMIL (4.7-6.1); RDW 14.8 % (11.5-14.5); WBC 23.51 X1000 (4.8-10.8)
[2019-04-23 07:30] LABS: ESTIMATED GFR > 60
[2019-04-23 07:37] LABS: AGAP 33; ALBUMIN 4.8 g/dL (3.5-5.0); ALKALINE PHOSPHATASE 407 U/L (32-122); BUN 11 mg/dL (8-22); CHLORIDE 85 mmol/L (98-107); COSMO 302; CREATININE 1.1 mg/dL (0.7-1.2); GOT 12 U/L (10-34); GPT 24 U/L (10-44); POTASSIUM 4.2 mmol/L (3.5-5.1); SODIUM 139 mmol/L (136-145); TCO2 21 mmol/L (25-35); TOTAL PROTEIN 9.3 g/dL (6.3-8.3)
[2019-04-23 07:46] LABS: PCO2(98.6) 19 mmHg (35-45)
[2019-04-23 07:47] LABS: ALLEN TEST YES; MODALITY ROOM AIR
[2019-04-23] MEDS ORDERED: SODIUM CHLORIDE 0.9% INJ ONE (07:57)
[2019-04-23] MEDS ORDERED: PHENERGAN IV ONE (07:57)
[2019-04-23 08:13] LABS: BILIRUBIN URINE NEGATIVE (NEGATIVE); BLOOD URINE NEGATIVE (NEGATIVE); CLARITY CLEAR (CLEAR); COLOR STRAW; KETONE URINE 3+(Large) mg/dL (NEGATIVE); LEUKOCYTES URINE NEGATIVE (NEGATIVE); NITRITE URINE NEGATIVE (NEGATIVE); PH URINE 6.5; PROTEIN URINE 1+(30 mg/dL) mg/dL (NEGATIVE); UROBILINOGEN URINE NORMAL
[2019-04-23 08:30] LABS: URINE EPITHELIAL CELLS <10 /HPF (<10); URINE SOURCE CLEAN CATCH
[2019-04-23 08:59] LABS: INR 0.87; PROTIME 12.3 Seconds (11.0-16.0)
[2019-04-23 09:00] LABS: PTT 25.6 Seconds (22.3-41.8)
[2019-04-23] MEDS ORDERED: MAXIPIME 2 GM in NS 100 ML IV ONE (09:07)
[2019-04-23] MEDS ORDERED: ZOSYN 3.375 GM in NS 50 ML IV ONE (09:07)
[2019-04-23 09:36] LABS: MAGNESIUM 1.3 mg/dL (1.5-2.7)
[2019-04-23] MEDS ORDERED: MAGNESIUM SULFATE 2 GM/S.W.I. 2 GM/50 ML IVPB IV ONE ×2 (09:43→09:46)
--- NOTE | 2019-04-23 10:31 | PROVIDER DOCUMENTATION ---
HPI-Abdominal Pain/GI Problem - General Chief Complaint: DKA ALERT Stated Complaint: ABD Pain Time Seen by Provider: 04/23/19 08:28 Source: patient Allergies/Adverse Reactions: Patient Allergies Allergy/AdvReac Type Severity Reaction Status Date / Time Sulfa (Sulfonamide Allergy HIVES Verified 11/02/18 13:22 Antibiotics) vancomycin AdvReac RASH Verified 11/02/18 13:22 Home Medications: Home Medication List Medication Instructions Recorded Confirmed Last Taken Type Clonidine [Catapres] 0.1 mg PO BID PRN 02/11/17 02/15/19 10/31/18 History Insulin Aspart [Novolog] 1 dose SQ TID 01/17/18 02/15/19 11/01/18 History Iron Carbonyl/Ascorbic Acid 1 each PO BID tablet 01/26/18 02/15/19 02/13/19 21:00 Rx [Icar-C] Amlodipine [Norvasc] 5 mg PO BID tablet 06/27/18 02/15/19 02/14/19 21:00 Rx Lorazepam 1 mg PO TID@0900,1500,2100 11/24/18 02/15/19 02/13/19 21:00 History Zolpidem [Ambien] 10 mg PO HS PRN #10 tab 11/26/18 02/15/19 02/12/19 21:00 Rx Tizanidine HCl [Zanaflex] 4 mg PO Q8HR 01/12/19 02/15/19 02/13/19 21:00 History Hydrocodone/APAP 7.5 mg/325 mg 1 ea PO Q6H PRN #20 tab 02/18/19 Unknown Rx [[place]-7.5] Insulin Glargine,Hum.rec.anlog 30 unit SQ BID #0 02/18/19 02/15/19 Unknown Rx [Lantus Solostar] Magnesium Oxide 400 mg PO BID #10 tab 02/18/19 Unknown Rx Metoclopramide HCl [Reglan] 5 mg PO 4XDAY #120 tab 02/18/19 Unknown Rx Pantoprazole Sodium [Protonix] 40 mg PO BID #60 tablet. 02/18/19 Unknown Rx Polyethylene Glycol 3350 [Miralax] 17 gm PO BID #15 powder, packet 02/18/19 Unknown Rx Sucralfate [Carafate Liquid] 1 gm PO 0700,1100,1600,2100 #120 02/18/19 Unknown Rx udc - History of Present Illness-ABD Nature of Presenting Problems: type 1 dm with 4 day hx of repeatative vomiting no fever or chills hx gastroparesis sp cholecstectomy felt constipated took laxative and had a diarrhea. stool no blood no cough hx of poor control with paraesthesias and amputation of 2 toes . Abdominal Pain Onset Location: reports: epigastric Pain Radiation: reports: no radiation Quality of Pain: reports: aching, pressure Severity in ED: reports: moderate Onset/Duration: reports: 4 days ago Timing: reports: still present, getting worse Activities at Onset: reports: none Exposure to sick contacts?: No Modifying Factors: worse with: vomiting Associated Symptoms: reports: constipation, nausea, vomiting. denies: diarrhea, fever/chills Last BM: 24 hours ago Dark Stools Present?: reports: none noticed Rectal Bleeding: reports: none Rectal Pain: reports: none # of Vomiting Episodes: 10 Emesis Description: reports: clear Bruising or Bleeding Gums?: No Similar Symptoms Previously?: Yes Recently seen or treated by another doctor?: No Review of Systems - Adult - REVIEW OF SYSTEMS - ADULT Constitutional: reports: fatique. denies: chills, fever Eyes: reports: no symptoms reported Ears, Nose, Mouth & Throat: reports: no symptoms reported Cardiovascular: denies: chest pain, heart murmur, irregular heart rate Respiratory: reports: no symptoms reported Gastrointestinal: reports: see HPI, abdominal pain, nausea, poor appetite, vomiting. denies: hematemesis, rectal bleeding Genitourinary: reports: no symptoms reported Musculoskeletal: reports: bone pain Integumentary: reports: skin sores/ulcer (toes hammer) Neurological: reports: paresthesia Psychiatric: reports: emotional problems Endocrine: reports: increased thirst Hematologic/Lymphatic: reports: no symptoms reported Allergic/Immunologic: reports: no symptoms reported Past History - Adult - PAST MEDICAL HISTORY-ADULT Review of Records: reports: Medications Reviewed, Social history reviewed & non- contributory. Major Childhood Illnesses: reports: denies history Cardiovascular: reports: HTN Respiratory: reports: denies history Gastrointestinal: reports: other (gastroparesis) Obstetrical/Gynecological: reports: denies history Genitourinary: reports: kidney disease, other (Sofi history of) Musculoskeletal: reports: denies history Neurological: reports: denies history Endocrine/Immune: reports: Diabetes Diabetes Type: Type 1 Diabetes controlled by:: Insulin Dependent Other Conditions: reports: MRSA - PRIOR SURGERIES/PROCEDURES Surgical/Procedure History: reports: recent surgery (09/12/18), cholecystectomy, orthopedic (extremity) - IMMUNIZATION STATUS Childhood Immunizations: See Nurse Assessment Flu Vaccine: See Nurse Assessment - FAMILY HISTORY Family History: reviewed, not pertinent - SOCIAL HISTORY Smoking: denies Physical Exam-General - PHYSICAL EXAM-ADULT Initial Vital Signs Reviewed: Yes - CONSTITUTIONAL General Appearance: mild distress - EYES Eyes: PERRL/EOMI - HEAD, EARS, NOSE, MOUTH & THROAT HENMT: normocephalic/atraumatic. negative: moist mucous membranes - NECK Neck: supple - RESPIRATORY Respiratory: lungs clear - CARDIOVASCULAR Cardiovascular: tachycardia - GASTROINTESTINAL (ABDOMEN) Abdominal Exam: soft, no organomegaly, no pulsatile mass, tenderness - LYMPHATIC Lymphatic: no adenopathy - MUSCULOSKELETAL Back Exam: normal inspection, no CVA tenderness - SKIN Integumentary: abrasion(s) - NEUROLOGIC Neurologic: grossly normal - PSYCHIATRIC Psych/Mental Status: oriented x 3 Progress - PLAN OF CARE/RESULTS Progress/Plan/Lab Results: Vital Signs - 8 hr 04/23/19 06:30 04/23/19 06:37 04/23/19 08:00 Temperature 98.3 F 100.1 F H Pulse Rate 136 H 135 H 135 H Respiratory Rate 24 20 20 Blood Pressure 167/107 167/107 147/86 O2 Sat by Pulse Oximetry 100 99 94 L Laboratory Results - last 24 hr 04/23/19 04/23/19 04/23/19 06:35 06:35 06:35 WBC 23.51 H RBC 5.45 Hgb 13.8 L Hct 40.1 L MCV 73.6 L MCH 25.3 L MCHC 34.4 RDW Std Deviation 14.8 H Plt Count 875 H MPV 9.6 Immature Gran % (Auto) 0.4 Neut % (Auto) 90.0 H Lymph % (Auto) 3.5 L [place] % (Auto) 6.0 Eos % (Auto) 0.0 Baso % (Auto) 0.1 Immature Gran # (Auto) 0.10 H Neut # (Auto) 21.16 H Lymph # (Auto) 0.82 L [place] # (Auto) 1.40 H Eos # (Auto) 0.00 Baso # (Auto) 0.03 PT INR PTT (Actin FS) Specimen Type Sample Site pH pCO2 pO2 HCO3 Base Excess Oxyhemoglobin ABG O2 Sat (Calculated) ABG O2 Saturation ABG Carboxyhemoglobin ABG Methemoglobin Harry Test A-a O2 Difference Total Hemoglobin Lactate Blood Gas Modality FiO2 % Sodium 139 Potassium 4.2 Chloride 85 L Carbon Dioxide 21 L Anion Gap 33 BUN 11 Creatinine 1.1 Estimated GFR/1.73 m2 > 60 BUN/Creatinine Ratio 10 Glucose POC Glucose 500 H D Calculated Osmolality 302 Calcium Magnesium Total Bilirubin 0.50 AST 12 ALT 24 Alkaline Phosphatase 407 H Creatine Kinase Troponin T Total Protein 9.3 H Albumin 4.8 Globulin 5.0 Albumin/Globulin Ratio 1.0 Lipase Plasma Lactate Urine Source Urine Color Urine Clarity Urine pH Ur Specific [place] Urine Protein Urine Ketones Urine Blood Urine Nitrite Urine Bilirubin Urine Urobilinogen Urine Microscopic RBC Urine WBC Ur Epithelial Cells Urine Glucose 04/23/19 04/23/19 04/23/19 06:35 06:35 06:35 WBC RBC Hgb Hct MCV MCH MCHC RDW Std Deviation Plt Count MPV Immature Gran % (Auto) Neut % (Auto) Lymph % (Auto) [place] % (Auto) Eos % (Auto) Baso % (Auto) Immature Gran # (Auto) Neut # (Auto) Lymph # (Auto) [place] # (Auto) Eos # (Auto) Baso # (Auto) PT INR PTT (Actin FS) Specimen Type Sample Site pH pCO2 pO2 HCO3 Base Excess Oxyhemoglobin ABG O2 Sat (Calculated) ABG O2 Saturation ABG Carboxyhemoglobin ABG Methemoglobin Harry Test A-a O2 Difference Total Hemoglobin Lactate Blood Gas Modality FiO2 % Sodium Potassium Chloride Carbon Dioxide Anion Gap BUN Creatinine Estimated GFR/1.73 m2 BUN/Creatinine Ratio Glucose POC Glucose Calculated Osmolality Calcium Magnesium 1.3 L Total Bilirubin AST ALT Alkaline Phosphatase Creatine Kinase 90 Troponin T Total Protein Albumin Globulin Albumin/Globulin Ratio Lipase 16 Plasma Lactate 4.7 H* Urine Source Urine Color Urine Clarity Urine pH Ur Specific [place] Urine Protein Urine Ketones Urine Blood Urine Nitrite Urine Bilirubin Urine Urobilinogen Urine Microscopic RBC Urine WBC Ur Epithelial Cells Urine Glucose 04/23/19 04/23/19 04/23/19 06:35 06:35 06:50 WBC RBC Hgb Hct MCV MCH MCHC RDW Std Deviation Plt Count MPV Immature Gran % (Auto) Neut % (Auto) Lymph % (Auto) [place] % (Auto) Eos % (Auto) Baso % (Auto) Immature Gran # (Auto) Neut # (Auto) Lymph # (Auto) [place] # (Auto) Eos # (Auto) Baso # (Auto) PT 12.3 INR 0.87 PTT (Actin FS) 25.6 Specimen Type ARTERIAL Sample Site R RADIAL pH 7.60 H* pCO2 19 L* pO2 101 H HCO3 24.4 Base Excess -0.6 Oxyhemoglobin 95.6 ABG O2 Sat (Calculated) 18.3 ABG O2 Saturation 99.5 ABG Carboxyhemoglobin 2.50 ABG Methemoglobin 1.4 Harry Test YES A-a O2 Difference 25.0 Total Hemoglobin 13.5 Lactate 4.00 H* Blood Gas Modality ROOM AIR FiO2 % 21.0 Sodium Potassium Chloride Carbon Dioxide Anion Gap BUN Creatinine Estimated GFR/1.73 m2 BUN/Creatinine Ratio Glucose POC Glucose Calculated Osmolality Calcium Magnesium Total Bilirubin AST ALT Alkaline Phosphatase Creatine Kinase Troponin T < 0.010 Total Protein Albumin Globulin Albumin/Globulin Ratio Lipase Plasma Lactate Urine Source Urine Color Urine Clarity Urine pH Ur Specific [place] Urine Protein Urine Ketones Urine Blood Urine Nitrite Urine Bilirubin Urine Urobilinogen Urine Microscopic RBC Urine WBC Ur Epithelial Cells Urine Glucose 04/23/19 04/23/19 04/23/19 07:58 08:03 08:50 WBC RBC Hgb Hct MCV MCH MCHC RDW Std Deviation Plt Count MPV Immature Gran % (Auto) Neut % (Auto) Lymph % (Auto) [place] % (Auto) Eos % (Auto) Baso % (Auto) Immature Gran # (Auto) Neut # (Auto) Lymph # (Auto) [place] # (Auto) Eos # (Auto) Baso # (Auto) PT INR PTT (Actin FS) Specimen Type Sample Site pH pCO2 pO2 HCO3 Base Excess Oxyhemoglobin ABG O2 Sat (Calculated) ABG O2 Saturation ABG Carboxyhemoglobin ABG Methemoglobin Harry Test A-a O2 Difference Total Hemoglobin Lactate Blood Gas Modality FiO2 % Sodium Potassium Chloride Carbon Dioxide Anion Gap BUN Creatinine Estimated GFR/1.73 m2 BUN/Creatinine Ratio Glucose POC Glucose 350 H 336 H Calculated Osmolality Calcium Magnesium Total Bilirubin AST ALT Alkaline Phosphatase Creatine Kinase Troponin T Total Protein Albumin Globulin Albumin/Globulin Ratio Lipase Plasma Lactate Urine Source CLEAN CATCH Urine Color STRAW Urine Clarity CLEAR Urine pH 6.5 Ur Specific [place] 1.010 Urine Protein 1+(30 mg/dL) A Urine Ketones 3+(Large) A Urine Blood NEGATIVE Urine Nitrite NEGATIVE Urine Bilirubin NEGATIVE Urine Urobilinogen NORMAL Urine Microscopic RBC Not Reportable Urine WBC NEGATIVE Ur Epithelial Cells <10 Urine Glucose 3+(500 mg/dL) A 04/23/19 04/23/19 09:41 09:42 WBC RBC Hgb Hct MCV MCH MCHC RDW Std Deviation Plt Count MPV Immature Gran % (Auto) Neut % (Auto) Lymph % (Auto) [place] % (Auto) Eos % (Auto) Baso % (Auto) Immature Gran # (Auto) Neut # (Auto) Lymph # (Auto) [place] # (Auto) Eos # (Auto) Baso # (Auto) PT INR PTT (Actin FS) Specimen Type Sample Site pH pCO2 pO2 HCO3 Base Excess Oxyhemoglobin ABG O2 Sat (Calculated) ABG O2 Saturation ABG Carboxyhemoglobin ABG Methemoglobin Harry Test A-a O2 Difference Total Hemoglobin Lactate Blood Gas Modality FiO2 % Sodium Potassium Chloride Carbon Dioxide Anion Gap BUN Creatinine Estimated GFR/1.73 m2 BUN/Creatinine Ratio Glucose POC Glucose 366 H Calculated Osmolality Calcium Magnesium Total Bilirubin AST ALT Alkaline Phosphatase Creatine Kinase Troponin T Total Protein Albumin Globulin Albumin/Globulin Ratio Lipase Plasma Lactate 1.6 Urine Source Urine Color Urine Clarity Urine pH Ur Specific [place] Urine Protein Urine Ketones Urine Blood Urine Nitrite Urine Bilirubin Urine Urobilinogen Urine Microscopic RBC Urine WBC Ur Epithelial Cells Urine Glucose Orders Category Date Time Status Cardiac Monitoring DIRECTED Care 04/23/19 08:18 Active Finger Stick Blood Sugar (ED) DIRECTED Care 04/23/19 09:54 Active IV Insertion ORDERED Care 04/23/19 08:18 Completed Notify MD of + Sepsis Screen NOW Care 04/23/19 08:18 Active Notify Physician As Ordered Care 04/23/19 08:18 Active CHEST-1 VIEW [RAD] Stat Exams 04/23/19 08:18 Taken ABG [RESP] Routine Lab 04/23/19 06:50 Completed BLOOD CULTURE [BLDCUL] Stat Lab 04/23/19 06:55 Ordered CBC WITH ELECTRONIC DIFF [HEME] Stat Lab 04/23/19 06:35 Completed CK PROFILE [SP CHEM] Stat Lab 04/23/19 06:35 Completed CMP [COMPREHENSIVE METABOLIC PANEL] [CHEM] Stat Lab 04/23/19 06:35 Completed Ketone [ACETONE SERUM] [CHEM] Stat Lab 04/23/19 10:24 Ordered LACTATE, PLASMA [CHEM] Lab 04/23/19 09:42 Completed LACTATE, PLASMA [CHEM] Lab 04/23/19 12:30 Uncollected LACTATE, PLASMA [CHEM] Stat Lab 04/23/19 06:35 Completed LIPASE [CHEM] Stat Lab 04/23/19 06:35 Completed MAGNESIUM [CHEM] Stat Lab 04/23/19 06:35 Completed PROTIME WITH INR [COAG] Stat Lab 04/23/19 06:35 Completed PTT [COAG] Stat Lab 04/23/19 06:35 Completed ROUTINE CULTURE [RM] Routine Lab 04/23/19 08:40 Ordered TROPONIN T Stat Lab 04/23/19 06:[address] W/POSS RFLX CULT [URINALYSIS] Stat Lab 04/23/19 08:03 Completed 0.9% Sodium Chloride Inj [Ns] 1,000 ml Med 04/23/19 06:50 Discontinued IV 999 mls/hr 0.9% Sodium Chloride Inj [Ns] 1,000 ml Med 04/23/19 07:10 Discontinued IV 999 mls/hr 0.9% Sodium Chloride Inj [Ns] 1,000 ml Med 04/23/19 08:50 Discontinued IV 999 mls/hr CefEPIME [Maxipime] 2 gm Med 04/23/19 09:07 Discontinued 0.9% Sodium Chloride Inj [Ns] 100 ml IV NOW Diphenhydramine [Benadryl] Med 04/23/19 07:03 Discontinued 25 mg IV NOW ONE Insulin Human Regular ([place] [Humulin R ([place])] Med 04/23/19 07:05 Discontinued 12 units .ROUTE .STK-MED ONE Insulin Human Regular [Humulin R] Med 04/23/19 06:52 Discontinued 12 unit IV NOW ONE Magnesium Sulfate 2 gm/S.w.i. Med 04/23/19 09:43 Discontinued 2 gm in 50 ml IV NOW Magnesium Sulfate 2 gm/S.w.i. Med 04/23/19 09:46 Active 2 gm in 50 ml IV NOW Morphine Med 04/23/19 06:51 Discontinued 4 mg IV NOW ONE Ondansetron Odt [Zofran Odt] Med 04/23/19 07:11 Discontinued 8 mg .ROUTE .STK-MED ONE Ondansetron [Zofran] Med 04/23/19 06:51 Discontinued 4 mg IV NOW ONE Piperacillin/Tazobactam [Zosyn] 3.375 gm Med 04/23/19 09:07 Discontinued 0.9% Sodium Chloride Inj [Ns] 50 ml IV NOW Promethazine [Phenergan] Med 04/23/19 07:57 Discontinued 25 mg IV NOW ONE Sodium Chloride 0.9% Med 04/23/19 07:57 Discontinued 20 ml INJ NOW ONE Hypo/Hyperglycemia Complaint Stat Ot 04/23/19 09:54 Ordered Oxygen Device Stat Ot 04/23/19 08:18 Active Result Diagrams: 04/23/19 06:35 04/23/19 06:35 - EKG 1 Time of EKG reading by physician:: 10:56 EKG Read and Signed by:: Maynor Gonzalez EKG Interpretation (*Must complete 3 of following elements*): Abnormal Rate: 120 Rhythm: sinus tachycardia [place]: normal QRS: Q Waves present DE Interval: normal ST Wave: normal - XRAY 1 XRAY Study: Chest Impression: Normal Departure - Departure Date of Disposition Decision: 04/23/19 Time of Disposition Decision: 10:41 DIAGNOSIS: Nausea and vomiting, Abdominal pain, Hyperglycemia Disposition: ADMITTED INPATIENT 09 Certified Medical Emergency: Emergent Condition: Serious Referrals and Follow-Ups: Cj Anaya [Primary Care Provider] - - Critical Care Note This patient required my direct & personal management of CC.: Yes Total Time (mins): 30 Critical Care Statement: This patient required my direct personal management to treat or rule out processes, the absence of which, could potentiallly result in sudden, clinically significant life or limb threatening deterioration. Attestation - Physician/ AMY Attestation Patient care was provided by Advanced Practice Provider:: No The physician spent face to face time with patient:: Yes Advanced Practice Provider documentation review:: Supervising physician onsite and consulted in the evaluation and care of this patient. The physician did have a face to face encounter with the patient.
--- NOTE | 2019-04-23 11:06 | EKG Report ---
Test Performed on : 04/23/2019 10:53:53 AM Test Reason : emboli Blood Pressure : / mmHG Vent. Rate : 120 BPM Atrial Rate : 120 BPM P-R Int : 130 ms QRS Dur : 080 ms QT Int : 308 ms P-R-T Axes : 052 019 095 degrees QTc Int : 435 ms Sinus tachycardia. with occasional premature ventricular complexes. Cannot rule out Inferior infarct (cited on or before 11-JAN-2019) Abnormal ECG When compared with ECG of 17-FEB-2019 16:10, premature ventricular complexes. are now present T wave inversion now evident in Lateral leads Unconfirmed Result
[2019-04-23] MEDS ORDERED: COMPAZINE IV ONE (11:35)
[2019-04-23] MEDS ORDERED: DEMEROL IV ONE (11:36)
[2019-04-23] MEDS ORDERED: SODIUM BICARBONATE 8.4% 100 MEQ in STERILE WATER INJ. 500 ML IV PRN (11:56)
[2019-04-23] MEDS ORDERED: SODIUM PHOSPHATE 30 MMOL in D5W 250 ML IV PRN (11:56)
[2019-04-23] MEDS ORDERED: POTASSIUM CHLORIDE 20 MEQ/SWI 20 MEQ/100 ML IVPB IV PRN (11:56)
[2019-04-23] MEDS ORDERED: D50W SYRINGE IV PRN (11:56)
[2019-04-23] MEDS ORDERED: SODIUM CHLORIDE 0.9% INJ SCH (12:00)
[2019-04-23] MEDS: PROTONIX IV SCH (12:00)
--- NOTE | 2019-04-23 12:19 | Diag Imaging Result Doc PS360 ---
EXAM: CHEST-1 VIEW INDICATION: POssible sepsis TECHNIQUE: One view COMPARISON: 02/15/2019 FINDINGS: The lungs are grossly clear. There is no discrete pleural fluid collection or pneumothorax. The cardiomediastinal silhouette and central vasculature are grossly unremarkable. IMPRESSION: No evidence of acute pathology by plain radiograph. Electronically signed by Louis Barrientos 04/23/2019 12:17 PM
[2019-04-23] MEDS: NS 1,000 ML IV SCH ×2 (12:40→20:45)
[2019-04-23] MEDS: HUMULIN R 100 UNIT in NS 100 ML IV SCH ×2 (12:55→14:10)
[2019-04-23] MEDS: TYLENOL PO PRN ×2 (13:02→16:40)
--- NOTE | 2019-04-23 13:09 | Diag Imaging Result Doc PS360 ---
EXAM: ABDOMEN FLAT/UPRIGHT INDICATION: abd pain; n/v TECHNIQUE: 3 views COMPARISON: 11/02/2018 FINDINGS: There are unremarkable bowel gas and stool patterns. There is no obstructive bowel pattern. There is no evidence of large volume free abdominal gas. Cholecystectomy clips are noted. Splenic granulomata are seen incidentally. IMPRESSION: No evidence of acute pathology by plain radiograph. Electronically signed by Louis Barrientos 04/23/2019 1:06 PM
[2019-04-23 13:57] LABS: BE -2.5 mmoll (-3.0-3.0); BLOOD TYPE ARTERIAL; HCO3-(ACT) 22.9 mmoll (20.0-26.0); METHB 1.3 % (0.0-1.5); O2(CT) 16.1 mL/dL (15.0-23.0); PCO2(98.6) 34 mmHg (35-45); PO2(98.6) 87 mmHg (60-100); SAMPLE BLOOD; SAO2 98.8 % (95.0-100.0); pH(98.6) 7.41 (7.35-7.45)
[2019-04-23 13:59] LABS: ALLEN TEST YES; MODALITY ROOM AIR
[2019-04-23 13:59] LABS: UR AMPHETAMINES QUAL NONE DETECTED (NONE DETECT); UR BARBITUATES QUAL NONE DETECTED (NONE DETECT); UR BENZODIAZEPIN QUAL PRESUMPTIVE POSITIVE (NONE DETECT); UR CANNABINOIDS QUAL NONE DETECTED (NONE DETECT); UR COCAINE QUAL NONE DETECTED (NONE DETECT); UR METHADONE QUAL NONE DETECTED (NONE DETECT); UR METHAMPHETAMINE QUAL NONE DETECTED (NONE DETECT); UR OPIATES QUAL PRESUMPTIVE POSITIVE (NONE DETECT); UR OXYCODONE QUAL NONE DETECTED (NONE DETECT); UR PCP QUAL NONE DETECTED (NONE DETECT); UR PROPOXYPHENE QUAL NONE DETECTED (NONE DETECT); UR TCA QUAL NONE DETECTED (NONE DETECT)
--- NOTE | 2019-04-23 14:12 | HISTORY AND PHYSICAL ---
PRIMARY CARE PROVIDER: Dr. Cj Anaya. CHIEF COMPLAINT: Abdominal pain with nausea and vomiting. HISTORY OF PRESENT ILLNESS: Mr. Miguel A Castillo is a 38-year-old male with a medical history of diabetes mellitus type 1 since the age of 25, who suffers from gastroparesis, GERD, chronic nausea and constipation, along with chronic pain syndrome, on Keota, along with anxiety, on Ativan, and insomnia, on Ambien. He has had a history of MRSA Staph infections with incision and drainage on the face, the feet, the leg. He comes in with complaint of no bowel movement in a few days. He had an enema yesterday, and has had 2 to 3 bowel movements since then. Also complains of the same amount of time having severe acid reflux, epigastric pain, and severe nausea and vomiting. He appears to be in diabetic ketoacidosis, except for his pH is alkaline. He has a lactate of 4. Blood glucose is 366. His anion gap is 33. He has an elevated white blood cell count of 23,000, and a fever along with it. There is no obvious source of infection. Will get an abdominal x-ray as his primary complaint is abdominal pain. Will send him to the ICU for closer observation, put him on a DKA protocol. Will monitor his ABGs. Will get one more set today, and one more in the morning. It is a concern that there is a possibility that maybe he is having some withdrawal signs. He states this happens to him frequently, but he most recently had his pain medication filled, so he should not be out of it. PAST MEDICAL HISTORY: 1. Diabetes mellitus type 1 diagnosed at the age of 25. 2. Insomnia. 3. Iron-deficiency anemia. Had to have blood in October. 4. Chronic pain syndrome, on Keota. 5. Anxiety, on Ativan. 6. Hypertension. 7. History of osteomyelitis in the left foot, now with amputation. 8. History of MRSA on his face and his feet and on one of his legs that he has had I and D's for. 9. Gastroparesis with GERD and chronic nausea, along with chronic constipation. PAST SURGICAL HISTORY: 1. Amputation of the left foot, along with multiple metatarsal amputations. Most recent surgery was in 08/2018 on that left foot. 2. Cholecystectomy in 01/2019. 3. Multiple incision and drainages of MRSA staph on face, feet, and legs. SOCIAL HISTORY: He quit smoking in 2012. He had been a 1 pack per day smoker since the age of 15. Currently, he dips about a half a can a day. Drinks maybe 6 to 8 beers two different times per month. Denies any illicit drug use. FAMILY HISTORY: There is coronary disease and diabetes on his mother's side of family in their 50s. There is also colon cancer on that side. On the father's side of the family, coronary disease in their 50s with stroke. ALLERGIES: Sulfa and vancomycin, and on this admission, there was some question as to whether maybe he had a reaction to morphine and Zosyn. Apparently, he developed a rash on his left forearm, required Benadryl, and the rash went away after he received those two drugs. He states he does not have an allergy to morphine, he has had it before, and he has had Zofran before, so really it is unknown. MEDICATIONS: Home medications have not been reconciled yet. REVIEW OF SYSTEMS: A 14-point review of systems was complete, and all are negative, except for those mentioned above in the HPI. PHYSICAL EXAMINATION: VITAL SIGNS: Temperature 100.1 degrees, heart rate 135, respiratory rate 20, blood pressure 147/86, O2 saturation 94% on room air. GENERAL: Mr. Miguel A Castillo is a 38-year-old male. He is in no acute distress, other than he is complaining of severe pain in his abdomen. He is able answer questions appropriately. HEENT: Atraumatic, normocephalic. Pupils equal, round, reactive to light. Extraocular movements intact. Mucous membranes are dry. NECK: Trachea midline. CARDIOVASCULAR: S1, S2. Tachycardic rate and rhythm. No rubs, gallops, murmurs. No lower extremity edema. There are +1 dorsalis pedal pulses, +2 radial pulses. Negative for JVD or carotid bruits. PULMONARY: Clear to auscultation. Bilateral breath sounds. No accessory muscle use or work of breathing noted. GASTROINTESTINAL: Soft. Tender in epigastric region. Positive bowel sounds x4, but hypoactive. EXTREMITIES: Moves all extremities equally. Full range of motion. NEUROLOGIC: A and O x3. Follows commands. Sensory is intact. SKIN: Warm, dry, intact, except for there appears to be some healing scabs on that left foot. LABORATORY DATA: White blood cells 23,000, hemoglobin 13, hematocrit 40, platelet count 875,000. INR 0.87, PTT is 25.6. ABGs show pH 7.60, pCO2 of 19, PO2 of 101, bicarb 24, base excess -0.6, saturation 95%. Lactate 4 (this is on room air). Sodium 139, potassium 4.2, BUN 11, creatinine is 1.1, anion gap is 33, glucose is 366, calcium unknown. Magnesium 1.3. Bilirubin 0.50, AST 12, ALT 24, alkaline phosphorus 7. CK 90. Troponin less than 0.01. Albumin 4.8, lipase 16. Lactate originally was 4.7, it is down to 1.6. There is 1+ protein, 3+ ketones, 3+ glucose, acetone small. IMAGING: EKG: Sinus tachycardia with PVCs, rate 120, QTC 435. Chest x-ray: There is no report yet. It appears clear. ASSESSMENT AND PLAN: 1. Diabetic ketoacidosis, but has alkalosis in the blood stream. Had lactic acidosis, is tachycardic, hyperglycemic. Could just be a severe case of uncontrolled diabetes mellitus type 1, but he also had an anion gap of 33. Will watch him in the intensive care unit. Will go ahead and put him on an insulin drip, and treat accordingly. Will get a repeat ABG as well. 2. Possible sepsis with leukocytosis, lactic acidosis, fever. He will be placed on broad- spectrum antibiotics. 3. Abdominal pain with intractable nausea, vomiting. Will get an abdominal x- ray. He has a history of constipation, but has had 2 to 3 bowel movements over the last 24 hours. 4. Hypertension. Waiting for home medications to be verified. 5. Questionable withdrawals from pain medication. He did just have it filled about a week and a half ago, but the emergency room was able to pull up a list of how frequent he is getting pain medications, and it is very frequent, so he will not need a new prescription for Keota when he goes home. He has enough at home if he is taking it appropriately. Some of this abdominal pain and nausea and vomiting is a questionable sign of withdrawal symptoms. 6. History of iron-deficiency anemia. Will resume his Icar once it is verified. He had to have blood in October. 7. Insomnia and anxiety. He takes Ativan and Ambien at home. 8. Gastroesophageal reflux disease. He will get intravenous Protonix. He is complaining of signs and symptoms of esophagitis right now, burning through his esophagus. 9. Intractable nausea and vomiting. Compazine and Phenergan. 10. Hypomagnesemia. Magnesium supplemented with intravenous magnesium. 11. Gastroparesis with chronic nausea that was found on anoscopy back in January. 12. Constipation. Had to take enema to get his bowel movements going. He has had 2 or 3 in the last 24 hours. Once home medications are verified, will be able to get all that resumed back that he takes at home. If it does not improve, depending on abdominal x-ray, what it shows, will depend on what we start for him. 13. History of noncompliance. 14. Deep venous thrombosis prophylaxis. Lovenox. Dictated by RAMÓN Kwan for Braydon Fu MD Addendum: Patient seen and examined by myself. Agree with RAMÓN note. It reflects my assessment and plan. Patient is being admitted to hospital for DKA. Will start insulin drip. For sepsis will treat him with broad spectrum antibiotics and will wait for results of blood cultures. Will monitor him closely. cc: RAMÓN Kwan MD MTDD
[2019-04-23 14:16] LABS: AGAP 26; BUN 12 mg/dL (8-22); CALCIUM 10.2 mg/dL (8.8-10.2); CHLORIDE 100 mmol/L (98-107); COSMO 301; CREATININE 1.1 mg/dL (0.7-1.2); ESTIMATED GFR > 60; GLUCOSE 298 mg/dL (70-104); MAGNESIUM 1.6 mg/dL (1.5-2.7); PHOSPHORUS 2.2 mg/dL (2.7-4.5); POTASSIUM 3.4 mmol/L (3.5-5.1); SODIUM 146 mmol/L (136-145); TCO2 20 mmol/L (25-35)
[2019-04-23 14:20] LABS: ALBUMIN 4.1 g/dL (3.5-5.0); ALKALINE PHOSPHATASE 300 U/L (32-122); AMYLASE 238 U/L (20-200); DIRECT BILIRUBIN < 0.20 mg/dL (0.00-0.20); GOT 10 U/L (10-34); GPT 18 U/L (10-44); TOTAL PROTEIN 7.3 g/dL (6.3-8.3)
[2019-04-23 14:27] LABS: LIPASE 968 U/L (13-60)
[2019-04-23] MEDS: POTASSIUM CHLORIDE 20% LIQUID PO PRN (14:34)
[2019-04-23] MEDS: PHENERGAN IV PRN ×2 (14:41→20:46)
[2019-04-23] MEDS: SODIUM CHLORIDE 0.9% INJ PRN (14:45)
[2019-04-23] MEDS: COMPAZINE IV PRN ×2 (16:40→21:18)
[2019-04-23] MEDS: MORPHINE IV PRN ×2 (16:54→22:34)
[2019-04-23 16:58] LABS: AGAP 18; BUN 13 mg/dL (8-22); CALCIUM 10.2 mg/dL (8.8-10.2); CHLORIDE 101 mmol/L (98-107); COSMO 291; CREATININE 1.1 mg/dL (0.7-1.2); ESTIMATED GFR > 60; GLUCOSE 268 mg/dL (70-104); MAGNESIUM 1.9 mg/dL (1.5-2.7); PHOSPHORUS 2.1 mg/dL (2.7-4.5); SODIUM 141 mmol/L (136-145); TCO2 22 mmol/L (25-35)
[2019-04-23] MEDS ORDERED: NORCO-10 PO SCH (17:00)
[2019-04-23 20:39] LABS: AGAP 16; BUN 12 mg/dL (8-22); CALCIUM 9.5 mg/dL (8.8-10.2); CHLORIDE 102 mmol/L (98-107); COSMO 286; CREATININE 0.9 mg/dL (0.7-1.2); ESTIMATED GFR > 60; GLUCOSE 216 mg/dL (70-104); MAGNESIUM 1.5 mg/dL (1.5-2.7); PHOSPHORUS 1.6 mg/dL (2.7-4.5); POTASSIUM 3.8 mmol/L (3.5-5.1); SODIUM 140 mmol/L (136-145); TCO2 22 mmol/L (25-35)
[2019-04-23] MEDS: NORCO-10 PO SCH (20:46)
[2019-04-23] MEDS: MAGNESIUM SULFATE 2 GM/S.W.I. 2 GM/50 ML IVPB IV PRN (21:11)
[2019-04-23] MEDS: POTASSIUM CHLORIDE 10% LIQUID PO PRN (21:18)
[2019-04-23] MEDS ORDERED: CATAPRES PO ONE (22:16)
[2019-04-23 22:17] LABS: GLUCOSE 555 mg/dL (70-104)
[2019-04-23 22:18] LABS: CALCIUM 12.2 mg/dL (8.8-10.2)
[2019-04-23] MEDS: NORVASC PO SCH (22:34)
[2019-04-24] MEDS: PROTONIX IV SCH ×2 (00:24→11:38)
[2019-04-24 01:50] LABS: AGAP 14; BUN 11 mg/dL (8-22); CALCIUM 8.7 mg/dL (8.8-10.2); CHLORIDE 100 mmol/L (98-107); COSMO 277; CREATININE 0.8 mg/dL (0.7-1.2); ESTIMATED GFR > 60; GLUCOSE 199 mg/dL (70-104); PHOSPHORUS 2.3 mg/dL (2.7-4.5); POTASSIUM 3.7 mmol/L (3.5-5.1); SODIUM 136 mmol/L (136-145); TCO2 22 mmol/L (25-35)
[2019-04-24] MEDS: COMPAZINE IV PRN ×3 (02:05→21:14)
[2019-04-24] MEDS: D5 NS 1,000 ML IV PRN ×2 (02:05→10:18)
[2019-04-24] MEDS: POTASSIUM CHLORIDE 10% LIQUID PO PRN ×2 (02:05→05:04)
[2019-04-24] MEDS: MORPHINE IV PRN ×5 (03:27→21:15)
[2019-04-24] MEDS: NS 1,000 ML IV SCH (03:28)
[2019-04-24 04:29] LABS: AGAP 12; BUN 9 mg/dL (8-22); CALCIUM 8.1 mg/dL (8.8-10.2); CHLORIDE 101 mmol/L (98-107); COSMO 278; CREATININE 0.5 mg/dL (0.7-1.2); ESTIMATED GFR > 60; GLUCOSE 238 mg/dL (70-104); PHOSPHORUS 1.5 mg/dL (2.7-4.5); POTASSIUM 3.5 mmol/L (3.5-5.1); SODIUM 136 mmol/L (136-145); TCO2 23 mmol/L (25-35)
[2019-04-24] MEDS: PHENERGAN IV PRN ×2 (05:04→10:25)
[2019-04-24] MEDS: MAGNESIUM SULFATE 2 GM/S.W.I. 2 GM/50 ML IVPB IV PRN (05:16)
[2019-04-24 05:55] LABS: BLOOD TYPE ARTERIAL; SAMPLE BLOOD
[2019-04-24 05:56] LABS: ALLEN TEST YES; BE 2.4 mmoll (-3.0-3.0); HCO3-(ACT) 26.7 mmoll (20.0-26.0); METHB 1.3 % (0.0-1.5); O2(CT) 10.4 mL/dL (15.0-23.0); O2HB 90.7 % (95.0-99.0); PCO2(98.6) 43 mmHg (35-45); PO2(98.6) 55 mmHg (60-100); SAO2 93.4 % (95.0-100.0); THB 8.1 g/dL (11.5-17.4); pH(98.6) 7.41 (7.35-7.45)
[2019-04-24 05:57] LABS: MODALITY ROOM AIR
[2019-04-24] MEDS: HUMALOG SUBQ SCH ×7 (07:23→21:15)
[2019-04-24 07:34] LABS: BASO# 0.03 X1000 (0.0-0.2); BASO% 0.3 % (0.0-0.8); EOS# 0.05 X1000 (0.0-0.7); EOS% 0.4 % (0.0-10.0); HEMATOCRIT 31.2 % (42.0-52.0); HEMOGLOBIN 10.3 g/dL (14.0-18.0); IMM GRAN# 0.03 X1000 (0.0-0.04); IMM GRAN% 0.3 % (0.0-0.5); LYMPH# 2.44 X1000 (1.2-3.4); LYMPH% 21.2 % (20.5-51.1); MCH 25.5 PG (27-31); MCV 77.2 FL (81-99); MONO% 8.7 % (1.7-9.3); MPV 8.9 FL (7.4-10.4); NEUT# 7.98 X1000 (1.4-6.5); NEUT% 69.1 % (42.2-75.2); PLT 380 X1000 (130-400); RBC 4.04 XMIL (4.7-6.1); RDW 14.9 % (11.5-14.5); WBC 11.53 X1000 (4.8-10.8)
[2019-04-24 07:48] LABS: AGAP 11; ALB/GLOB RATIO 1.2; ALBUMIN 3.6 g/dL (3.5-5.0); ALKALINE PHOSPHATASE 236 U/L (32-122); BUN 8 mg/dL (8-22); CALCIUM 8.2 mg/dL (8.8-10.2); CHLORIDE 100 mmol/L (98-107); CK TOTAL 71 U/L (24-204); COSMO 278; CREATININE 0.7 mg/dL (0.7-1.2); ESTIMATED GFR > 60; GLUCOSE 232 mg/dL (70-104); GOT 13 U/L (10-34); GPT 15 U/L (10-44); MAGNESIUM 2.3 mg/dL (1.5-2.7); PHOSPHORUS 1.6 mg/dL (2.7-4.5); POTASSIUM 3.5 mmol/L (3.5-5.1); SODIUM 136 mmol/L (136-145); TCO2 25 mmol/L (25-35); TOTAL BILIRUBIN 0.28 mg/dL (0.20-1.00); TOTAL PROTEIN 6.5 g/dL (6.3-8.3)
[2019-04-24] MEDS: NORVASC PO SCH ×2 (08:51→20:48)
[2019-04-24] MEDS: LOVENOX SUBQ SCH (08:51)
[2019-04-24] MEDS ORDERED: INSULIN GLARGINE HUM REC ANLOG 70 UNIT SQ SCH (09:00)
[2019-04-24] MEDS ORDERED: LANTUS INSULIN SUBQ SCH (09:00)
[2019-04-24] MEDS: NORCO-10 PO SCH ×3 (09:00→20:48)
[2019-04-24 09:26] LABS: AGAP 11; BUN 7 mg/dL (8-22); CALCIUM 8.4 mg/dL (8.8-10.2); CHLORIDE 98 mmol/L (98-107); COSMO 271; CREATININE 0.7 mg/dL (0.7-1.2); ESTIMATED GFR > 60; GLUCOSE 154 mg/dL (70-104); PHOSPHORUS 1.1 mg/dL (2.7-4.5); POTASSIUM 3.2 mmol/L (3.5-5.1); SODIUM 135 mmol/L (136-145); TCO2 26 mmol/L (25-35)
[2019-04-24] MEDS: POTASSIUM CHLORIDE 20% LIQUID PO PRN (10:18)
[2019-04-24] MEDS ORDERED: LANTUS INSULIN SUBQ ONE (11:22)
[2019-04-24] MEDS ORDERED: POTASSIUM PHOSPHATE 40 MEQ in NS 250 ML IV ONE (11:22)
[2019-04-24] MEDS ORDERED: AMBIEN PO PRN (11:32)
[2019-04-24] MEDS: ZYVOX PO SCH ×2 (12:08→20:49)
[2019-04-24] MEDS: LEVAQUIN PO SCH (12:09)
[2019-04-24] MEDS: ZANAFLEX PO SCH ×2 (12:09→20:48)
[2019-04-24] MEDS: REGLAN PO SCH ×3 (12:09→20:48)
--- NOTE | 2019-04-24 12:45 | PROGRESS NOTE ---
DATE: 04/24/2019 SUBJECTIVE: This morning Mr. Castillo refers to be doing a lot better. Denies any more nauseation. He did have a temperature of 100.1 degrees yesterday at 0800 hours. OBJECTIVE: Vital Signs: Blood pressure is 157/92, pulse of 93, respirations 17, temperature 97.7 degrees. The patient is saturating 100%. General: Mr. Castillo is a 38-year-old gentleman. He is in bed, in no distress. Mucosa is pink and moist. Anicteric. Acyanotic. Neck: Supple. Chest: Clear to auscultation. No crepitations. No rhonchi. Cardiovascular: Regular rate and rhythm. Abdomen: Soft, nontender. Bowel sounds present. Extremities: The right lower extremity is okay. The left lower extremity has reddish erythematous changes on the dorsum. There is a central area of mild ulceration. It is mildly warm to touch. There is an amputation of the first 2 digits, and the surgical scar looks unremarkable. LABORATORY DATA: WBC is down to 11.52, hemoglobin is 10.3, platelet count of 380,000. Chemistry is now, bicarbonate is up to 26, normal renal function test. Phosphorus is down to 1.2. ASSESSMENT AND PLAN: 1. Diabetic ketoacidosis. 2. Sepsis, most likely from the left foot. Cultures have been done. 3. Left foot cellulitis concerning also for underlying osteomyelitis. We will do an MRI of the foot tomorrow and go from there. The patient has been started on oral antimicrobial therapy. 4. Intractable nausea and abdominal pain, improved. 5. History of constipation. We will continue with the patient's bowel regimen. DISCUSSION: In general, Mr. Castillo's DKA is resolved. We are going to restart him back on his home regimen. We will also use pattern as well as p.r.n. sliding scale. We started him on p.o. antimicrobial therapy. We will get an MRI of the foot tomorrow. If there is no osteomyelitis, I think we can just treat him for cellulitis and get him home. cc: Clint Rush MD
[2019-04-24 13:29] LABS: AGAP 13; BUN 7 mg/dL (8-22); CALCIUM 8.5 mg/dL (8.8-10.2); CHLORIDE 100 mmol/L (98-107); COSMO 278; CREATININE 0.7 mg/dL (0.7-1.2); ESTIMATED GFR > 60; GLUCOSE 249 mg/dL (70-104); MAGNESIUM 1.8 mg/dL (1.5-2.7); POTASSIUM 4.1 mmol/L (3.5-5.1); SODIUM 136 mmol/L (136-145); TCO2 23 mmol/L (25-35)
[2019-04-24 13:44] LABS: INR 0.98; PROTIME 13.1 Seconds (11.0-16.0)
[2019-04-24] MEDS ORDERED: ATIVAN PO ONE (17:25)
[2019-04-24] MEDS: CARAFATE LIQUID PO SCH ×2 (17:32→20:47)
[2019-04-24] MEDS: MIRALAX PO SCH (20:47)
[2019-04-24] MEDS: ATIVAN PO SCH (20:48)
[2019-04-24] MEDS: ICAR-C PO SCH (20:48)
[2019-04-24] MEDS: MAG-OX PO SCH (20:48)
[2019-04-24] MEDS: LANTUS INSULIN SUBQ SCH (21:15)
[2019-04-25] MEDS: SODIUM CHLORIDE 0.9% INJ PRN (03:53)
[2019-04-25] MEDS: MORPHINE IV PRN ×3 (03:53→14:28)
[2019-04-25] MEDS: PHENERGAN IV PRN ×2 (03:53→10:12)
[2019-04-25] MEDS: ZANAFLEX PO SCH ×3 (04:23→22:10)
[2019-04-25] MEDS: CARAFATE LIQUID PO SCH ×4 (06:26→22:11)
[2019-04-25] MEDS: HUMALOG SUBQ SCH ×7 (06:27→20:00)
[2019-04-25 07:27] LABS: BASO% 0.5 % (0.0-0.8); EOS% 1.2 % (0.0-10.0); HEMATOCRIT 29.7 % (42.0-52.0); HEMOGLOBIN 9.9 g/dL (14.0-18.0); LYMPH% 23.8 % (20.5-51.1); MCH 25.8 PG (27-31); MCHC 33.3 g/dL (33-37); MCV 77.5 FL (81-99); MONO% 8.4 % (1.7-9.3); MPV 9.3 FL (7.4-10.4); NEUT% 66.1 % (42.2-75.2); PLT 323 X1000 (130-400); RBC 3.83 XMIL (4.7-6.1); RDW 14.7 % (11.5-14.5); WBC 8.25 X1000 (4.8-10.8)
[2019-04-25 07:28] LABS: BASO# 0.04 X1000 (0.0-0.2); LYMPH# 1.96 X1000 (1.2-3.4); MONO# 0.69 X1000 (0.11-0.59); NEUT# 5.46 X1000 (1.4-6.5)
[2019-04-25 07:43] LABS: AGAP 12; ALBUMIN 3.2 g/dL (3.5-5.0); BUN 7 mg/dL (8-22); CHLORIDE 102 mmol/L (98-107); COSMO 274; CREATININE 0.5 mg/dL (0.7-1.2); ESTIMATED GFR > 60; GLUCOSE 146 mg/dL (70-104); MAGNESIUM 1.8 mg/dL (1.5-2.7); PHOSPHORUS 2.1 mg/dL (2.7-4.5); POTASSIUM 3.4 mmol/L (3.5-5.1); SODIUM 137 mmol/L (136-145); TCO2 23 mmol/L (25-35)
[2019-04-25] MEDS: MIRALAX PO SCH ×2 (08:27→22:11)
[2019-04-25] MEDS: ICAR-C PO SCH ×2 (08:28→22:09)
[2019-04-25] MEDS: PROTONIX IV SCH (08:28)
[2019-04-25] MEDS: REGLAN PO SCH ×4 (08:28→22:11)
[2019-04-25] MEDS: MAG-OX PO SCH ×2 (08:28→22:11)
[2019-04-25] MEDS: LOVENOX SUBQ SCH (08:28)
[2019-04-25] MEDS: LEVAQUIN PO SCH (08:29)
[2019-04-25] MEDS: ZYVOX PO SCH ×2 (08:29→22:09)
[2019-04-25] MEDS: LANTUS INSULIN SUBQ SCH ×2 (08:29→22:08)
[2019-04-25] MEDS: NORVASC PO SCH ×2 (08:29→22:11)
[2019-04-25] MEDS: NORCO-10 PO SCH ×3 (08:36→22:10)
[2019-04-25] MEDS: ATIVAN PO SCH ×3 (08:36→22:09)
--- NOTE | 2019-04-25 13:20 | Diag Imaging Result Doc PS360 ---
MRI LOW EXTREMTY W/CON-LEFT - 04/25/2019 INDICATION: r/o osteomyelitis TECHNIQUE: MRI left foot without and with intravenous contrast COMPARISON: 09/09/2018 FINDINGS: There is severe diffuse patient motion artifact. There is significant indeterminate inflammatory edema at the plantar surface of the distal first-second metatarsal web space. This demonstrates some contrast enhancement. This area measures 2 x 2.8 cm. The signal is heterogeneous. There is intense bone marrow edema with severe enhancement at the heads of the third and fourth metatarsals. The head of the first metatarsal is also affected to a much lesser degree. This is nonspecific. There are numerous other areas of abnormal bone marrow edema at all the mid tarsal joints and calcaneocuboid joint. These demonstrate contrast enhancement as well. IMPRESSION: 1. Significant neuropathic joint disease of the foot. 2. Intense bone marrow edema and enhancement at the heads of the second, third, and fourth metatarsals. This is nonspecific, compatible with osteomyelitis, trauma, or severe degenerative changes. 3. Soft tissue edema and enhancement at the plantar medial forefoot, likely deep tissue infection. No drainable fluid. Electronically signed by Remigio Mcguire 04/25/2019 1:18 PM
[2019-04-25] MEDS: COMPAZINE IV PRN (14:28)
--- NOTE | 2019-04-25 16:20 | INFECTIOUS DISEASE CONSULT REP ---
DATE: 04/25/2019 CONCLUSION: The patient is admitted to the hospital with an infection in his left foot. On MRI there is a possibility that osteomyelitis is present. RECOMMENDATION: For now I am going to continue with Zyvox and Levaquin. I have put a consult in for Dr. Wright who has operated on the patient 3 times before to see if he feels osteomyelitis is present and see if he feels surgery is indicated for the patient's foot. If it turns out that there is not going to be surgery, then I would suggest treating the patient with IV antibiotics for a total of 6 weeks. Most likely I would give the patient cefepime. In the past he has had oxacillin-sensitive Staph aureus and Enterobacter cultured from his left foot. DISCUSSION: The patient tells me that approximately 2 weeks ago his left foot became more swollen, erythematous, and had purulent drainage. The patient also had fever. He has been admitted to the hospital and started on Zyvox and Levaquin and his foot has gotten better and the patient has not had any fever. His white blood cell count when he came in was 23,510 and now it is down to 8,250 with a hemoglobin of 9.9 and platelet count of 323,000. The creatinine is 0.5. GFR is greater than 60. Drug screen is positive for opiates and benzodiazepines. Culture from the patient's left foot and blood are negative. An MRI of the patient's foot showed: 1. Significant neuropathic joint disease. 2. Intense bone marrow edema and enhancement at the heads of the 2nd, 3rd, and 4th metatarsals which could be compatible with osteomyelitis, trauma, or severe degenerative changes. 3. Soft tissue edema and enhancement at the plantar medial forefoot, likely deep tissue infection. No drainable fluid. PAST MEDICAL HISTORY/REVIEW OF SYSTEMS: Eyes and ears: He does wear glasses but his hearing is okay. Neck: No stiffness. Respiratory: No cough or shortness of breath. GI: The patient does have episodes of vomiting. He told me that he has gastroparesis as the cause. : No dysuria or flank pain. Cardiac: No chest pain or palpitations. Neurologic: The patient has gastroparesis. He also has paresthesias in his feet. MEDICAL DISEASES: Positive for diabetes mellitus and hypertension. INFECTIOUS DISEASE HISTORY: Positive for pneumonia, facial abscess, abdominal abscess, bacteremia with a coagulase-negative Staph. PREVIOUS HOSPITALIZATIONS AND OPERATIONS: Patient has had bilateral foot surgeries multiple times. He has had drainage of a facial abscess and an abdominal abscess. He has also had bacteremia with a coagulase-negative Staph. Also, the patient has had a cholecystectomy. FAMILY HISTORY: Positive for diabetes mellitus, hypertension, myocardial infarction, stroke, and cancer. SOCIAL HISTORY: [place] He is . He lives alone. He does not have any pets. He drinks alcoholic beverages but denies cigarette smoking or illicit drug use, but as I mentioned earlier, his drug screen was positive. The patient is on disability. He does not have a job. PHYSICAL EXAMINATION: Vital Signs: Temperature is 97.6 degrees, pulse 105, respirations 18, blood pressure 156/84. Patient weighs 217 pounds. General: This is an obese, young male. He is in no acute distress. Head, eyes, ears, nose, and throat: He can hear my spoken words and see near objects. He does not have any white patches in his mouth. Neck: No meningismus. Lungs: Clear to auscultation. Cardiovascular: Heart rate is regular. Abdomen: Soft and nontender. Extremities: The patient's left foot is swollen and slightly erythematous. There is no drainage present. The patient's foot was not tender. This may be due to the fact that he has paresthesias. Integument: No rash noted. Thank you for the consult. cc: Richard Mirza MD
--- NOTE | 2019-04-25 16:45 | PROGRESS NOTE ---
DATE: 04/25/2019 This morning Mr. Castillo refers to be doing fairly okay. No new complaints. He was pending an MRI. OBJECTIVE: Vitals: Blood pressure is 147/94, pulse of 90, respiration is 18, temperature 98.2 degrees, patient was saturating 98% on room air. General: Mr. Castillo is a 38-year-old gentleman he is in bed no distress. Mucosa is pink and moist. Anicteric. Acyanotic. Neck: Supple. Chest: Is clear to auscultation. No crepitation, no rhonchi. Cardiovascular: Regular rate and rhythm. Abdomen: Soft, globally distended but nontender, bowel sounds present. Extremities: The left lower extremity has some reddish erythematous changes on the dorsum and is minimally tender. There is a central small area of ulceration is mildly warm and there is amputation of the 2 digits. LABORATORY DATA: WBC is back to normal 8.25, hemoglobin is 9.9, platelet count of 323,000. Chemistry is also reviewed, potassium is 3.4, glucose is 146. Patient has run a few hypoglycemia. ASSESSMENT: 1. Diabetic ketoacidosis on presentation resolved. 2. Sepsis most likely from the left foot, blood cultures so far have been negative. 3. Questionable osteomyelitis versus a severe degenerative changes of the left foot. MRI could not be very conclusive but there is the concern that there might be osteomyelitis so we consulted infectious disease and surgery will also be consulted. 4. Charcot arthropathy of the left foot noted. 5. Intractable nausea and abdominal pain improved. 6. History of constipation. Will continue with bowel regimen. 7. Diabetes mellitus type 1. Patient is on insulin regimen. So in general I think Mr. Castillo is doing well from the diabetic standpoint. His white cell count has also normalized, he is still on antimicrobial coverage. An MRI of the left foot was not very conclusive. There is a possibility that it could be osteomyelitis so I think it is reasonable to continue with the antimicrobial therapy. We have consulted infectious disease. I have spoken with Dr. Mirza. He also suggests that we get surgery to check on the foot. cc: Clint Rush MD [facility]
[2019-04-25] MEDS: CATAPRES PO PRN (23:32)
[2019-04-26] MEDS ORDERED: MORPHINE IV ONE ×2 (00:22→12:46)
[2019-04-26] MEDS: PHENERGAN IV PRN (00:57)
[2019-04-26] MEDS: SODIUM CHLORIDE 0.9% INJ PRN (00:58)
[2019-04-26] MEDS: CATAPRES PO PRN (06:07)
[2019-04-26] MEDS: ZANAFLEX PO SCH ×2 (06:07→13:09)
[2019-04-26] MEDS: CARAFATE LIQUID PO SCH ×2 (06:07→13:09)
[2019-04-26] MEDS: HUMALOG SUBQ SCH ×4 (06:28→13:11)
--- NOTE | 2019-04-26 07:37 | GENERAL SURGERY CONSULTATION ---
DATE: 04/26/2019 REQUESTING PHYSICIAN: Dr. Mirza REASON FOR CONSULTATION: Consult concerning possible osteomyelitis in his left foot. HISTORY OF PRESENT ILLNESS: A 38-year-old male with poorly-controlled diabetes, who I have been seeing previously for diabetic foot ulcers to the left foot. We have done previous amputations. He came in initially with abdominal pain, has since improved, but he has had issues with his foot. He apparently had some degree of trauma to the foot recently, and it started swelling while he was in the hospital. I have been asked to weigh an opinion. He got an MRI that was relatively nonspecific, but could not rule out osteomyelitis. PAST MEDICAL HISTORY: 1. Diabetes mellitus type 1. 2. Insomnia. 3. Iron deficiency anemia. 4. Chronic pain. 5. Anxiety. 6. Hypertension. 7. History of osteomyelitis. 8. History of MRSA. 9. Gastroparesis. PAST SURGICAL HISTORY: Includes amputations, cholecystectomy, multiple incision and drainage. SOCIAL HISTORY: Former smoker, but does do dip. FAMILY HISTORY: Positive for coronary artery disease and diabetes. ALLERGIES: Sulfa and vancomycin. MEDICATIONS: Home medications and current MAR reviewed. REVIEW OF SYSTEMS: Full 14 systems reviewed and negative except as specified in HPI. PHYSICAL EXAMINATION: Vital Signs: Patient is currently afebrile. Most recent blood pressure is 181/117. General: On exam, no acute distress. Alert, interactive male, looks stated age. HEENT: Normocephalic, atraumatic. Pupils equal, round, reactive to light. Mucous membranes moist. Oropharynx benign. Neck: Supple. Trachea midline. Cardiovascular: Regular rate and rhythm. Lungs: Grossly clear. Abdomen: Soft, nontender, nondistended. Extremities: Externally to the left foot, there is some swelling, but no real significant erythema. There are some healing wounds to the dorsal aspect of his remaining toes, but again, no real erythema. It is somewhat tender to palpation. No crepitus. Vascular: All extremities perfused. Neurologic: Decreased sensation bilaterally. Skin: Wound as noted above. LABORATORY DATA: Reviewed from yesterday. White blood cell count was 8. ASSESSMENT AND PLAN: A 38-year-old gentleman with possible osteomyelitis of the left foot. 1. Osteomyelitis of left foot: At this time, I reviewed his MRI, and it is somewhat questionable. He did have potential trauma to the area, which could explain it. At this point, his external aspect of the foot does not look like there is significant infection, so we will try antibiotics to see if we can get him over this without any kind of surgical intervention. I suspect that if we had to do some surgical intervention, he is ultimately going to require a [id number] amputation given the fact that he has got tissue edema potentially in the plantar aspect of his foot and potentially involving all the toes. 2. Multiple medical comorbidities, currently being managed by the hospitalist service. I appreciate the consultation. cc: Claudio Wright MD
--- NOTE | 2019-04-26 08:02 | INFECTIOUS DISEASE PROGRESS NO ---
DATE: 04/26/2019 PRESENT ILLNESS: The patient has an infection of his left foot. On MRI, it showed that there is a possibility that the patient has osteomyelitis. MEDICATIONS: Currently, the patient is on p.o. Zyvox and Levaquin. PHYSICAL EXAMINATION: Vital Signs: Temperature is 98.1 degrees, pulse 95, respirations 14, blood pressure 181/117. General: This is an obese, young male. He is in no acute distress. Head, Eyes, Ears, Nose, and Throat: He can hear my spoken words and see near objects. No drainage noted from the nose or the ears. I did not see any white patches in his mouth. Neck: No pain with movement of the neck. Lungs: Clear to auscultation. Cardiovascular: Heart rate is regular. Abdomen: Soft and nontender. Extremities: The patient's left foot is swollen and erythematous. The patient injured 2 of his toes last night when he was walking. On both of them, there is a superficial wound secondary to the trauma. Neurologic: The patient is alert. He can move his extremities. There is no tremor. LAB AND X-RAY: There is no new radiographic study. The patient's cultures from the blood and his left foot so far are negative. ASSESSMENT AND PLAN: Dr. Wright has just seen the patient. He does not think that there is a need for surgery at this time. He agreed with treating the patient with antibiotics and see how his foot does. I agree with treating the patient. Since the MRI shows that there is a possibility of osteomyelitis, I am going to treat the patient as if he does have it. I am going to switch him from his current antibiotics to cefepime 2 grams IV every 8 hours. I have requested that a peripherally inserted central catheter be placed, and I have put a consult in for [employer] to supply the patient's cefepime for a total of 6 weeks. The patient still has cultures pending on both of his toes that I took today, and if his foot should grow something that would not be covered by cefepime, I will go ahead and change the antibiotics. As I mentioned above, I have ordered for a peripherally inserted central catheter to be placed, and I have ordered for [employer] to be consulted to supply the home IV antibiotics. I will discuss with Dr. Rush about sending the patient home with the antibiotics as mentioned above. I plan on having the patient coming to my office at 3 weeks and then again at 6 weeks, at which time hopefully we will be able to stop the antibiotics and remove the patient's peripherally inserted central catheter. COMORBIDITIES: He is a diabetic. cc: Richard Mirza MD
[2019-04-26] MEDS: NORCO-10 PO SCH ×2 (08:51→15:19)
[2019-04-26] MEDS: ATIVAN PO SCH ×2 (08:51→15:19)
[2019-04-26] MEDS: MAG-OX PO SCH (09:50)
[2019-04-26] MEDS: ICAR-C PO SCH (09:50)
[2019-04-26] MEDS: MAXIPIME 2 GM in NS 100 ML IV SCH ×2 (09:51→15:37)
[2019-04-26] MEDS: NORVASC PO SCH (09:51)
[2019-04-26] MEDS: LOVENOX SUBQ SCH (09:51)
[2019-04-26] MEDS: PROTONIX IV SCH (09:51)
[2019-04-26] MEDS: REGLAN PO SCH ×2 (09:51→13:10)
[2019-04-26] MEDS: MIRALAX PO SCH (09:55)
[2019-04-26] MEDS ORDERED: NS 250 ML ONE (10:43)
[2019-04-26 11:11] LABS: INR 0.95; PROTIME 12.7 Seconds (11.0-16.0)
[2019-04-26 12:18] VITALS: BP 139/92
[2019-04-26] MEDS: LANTUS INSULIN SUBQ SCH (13:10)
--- NOTE | 2019-04-27 07:27 | DISCHARGE SUMMARY ---
ADMISSION DATE: 04/23/2019 DISCHARGE DATE: 04/26/2019 DISPOSITION: Home. FOLLOW-UP: 1. Dr. Cj Anaya. 2. Dr. Mirza. 3. Dr. Wright. CONSULTATIONS DURING ADMISSION: 1. Infectious Disease consulted. Patient was seen by Dr. Mirza. 2. Surgery was consulted. Patient was seen by Dr. Wright. INVASIVE PROCEDURES DONE DURING THIS ADMISSION: None. IMAGING STUDIES: Chest x-ray was negative for acute pathology. A KUB was negative for any acute pathology. 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 Enhancement of the 2nd, 3rd and 4th metatarsal on the left concerning for osteomyelitis. ADMISSION DIAGNOSES: 1. Diabetic ketoacidosis. 2. Sepsis. 3. Abdominal pain with intractable nausea and vomiting. 4. Insomnia. 5. Hypomagnesemia. DIAGNOSES AT TIME OF DISCHARGE: 1. Diabetic ketoacidosis on presentation resolved. 2. Sepsis secondary to left foot osteomyelitis. 3. Charcot arthropathy of the left foot. 4. Intractable nausea and vomiting secondary to diabetic gastroparesis. 5. History of constipation. 6. Diabetes mellitus type 1. 7. Osteomyelitis of the left foot on MRI. Patient will be discharged on IV antibiotics. DISCHARGE MEDICATIONS: 1. Clonidine 0.1 mg 3 times per day. 2. Sliding scale NovoLog. 3. Iron 1 tablet b.i.d. 4. Amlodipine 5 mg b.i.d. 5. Lorazepam 1 mg 3 times per day. 6. Ambien 10 mg p.o. at bedtime. 7. Zanaflex 4 mg p.o. q. 8. 8. Magnesium oxide 400 b.i.d. 9. Pantoprazole 40 mg b.i.d. 10. Reglan 5 mg 4 times per day. 11. Hydrocodone. 12. Insulin 70 units subcutaneous b.i.d. PRESENTING COMPLAINT: Nausea and vomiting. HISTORY OF PRESENTING COMPLAINT: Mr. Castillo is a 38-year-old gentleman who is known to have diabetes type 1 with multiple admissions to the hospital came to the ER because of nausea and vomiting. Patient was found to be in DKA. He was admitted for further medical care. HOSPITAL COURSE: Mr. Castillo was admitted to the ICU. DKA protocol was instituted which he responded well. His bicarb got normalized and gap got close. He was started on his home insulin regimen, which he did pretty good. During the hospital course, he was found to have some erythematous changes on the left foot dorsum. MRI of the foot was done which was pretty nonconclusive, but there was concern for osteomyelitis. ID and Surgery was consulted. A decision was made to treat him with IV antibiotics for osteomyelitis. A PICC line consult was placed. A PICC line was done. Patient was sent home with continued for IV cefepime, and he will follow up with Dr. Mirza. All the discharge instructions have been discussed with Mr. Castillo. He voiced understanding. At the time of discharge, his vital stable. Blood pressure was 139/92, pulse 104, respirations 13, and temperature 98.1 degrees. He was in stable condition for discharge. TIME SPENT: Time spent for discharge is 35 minutes. cc: MD Cj Kent MD Matthew L. Figh, MD Dr. Harris [facility]ITAL[facility]arsha
--- NOTE | 2019-05-01 04:50 | INFECTIOUS DISEASE PROGRESS NO ---
DATE: 04/30/2019 ADDENDUM: The final report of the patient's culture from the left foot showed no growth. cc: Richard Mirza MD
== END 2019-04-26 16:50 | disposition home health service (06) | DRG 871 ==
LOC: SUPCPDRO → P.ED 06:32 → SUATTDRO 12:35 → P.ICU 12:35 → 2N 14:17
PROVIDERS: ATTEND Internal Medicine